=== PATIENT | male | born 1980 | race Caucasian/White ===

== ENCOUNTER 2023-05-04 19:57 | Observation (INO) | payer OTHER ==
--- OUTSIDE RECORDS SUMMARY | 2023-05-04 20:08 | XMS REPORT | Continuity of Care Document ---
:1980 Author Organization [facility] t Address [address] [place] [address] Care Team Providers Name Role Phone NONE, PREFERRED Primary Care Physician Unavailable Roseline Mike Attending Clinician Unavailable ALYSON LYNNE Attending Clinician Unavailable VIRGINIA POZO Attending Clinician Unavailable SHREYA ALBARRAN Attending Clinician Unavailable GRETCHEN KHAN Attending Clinician Unavailable Gretchen Khan DO Attending Clinician DR MADHU QUINTERO Attending Clinician Unavailable SELENA Attending Clinician Unavailable ANILA Attending Clinician Unavailable ALICE MACEDO Attending Clinician Unavailable Alan THOMPSON, Carson Villalobos Attending Clinician [phone] Raquel SEBASTIAN, Kylee Mirza Attending Clinician [phone] Rufino THOMPSON, Emily Mirza Attending Clinician KINZA RUELAS Attending Clinician Unavailable DR MARCY DAY Attending Clinician Unavailab Luca Knowles Attending Clinician LUCA BATES Attending Clinician Unavailable SHREYA ALBARRAN Admitting Clinician Unavailable DR MADHU QUINTERO Admitting Clinician Unavailable SELENA Admitting Clinician Unavailable SARAI_JIMMIE Admitting Clinician Unavailable ALICE MACEDO Admitting Clinician Unavailable KINZA RUELAS Admitting Clinician Unavailable DR MARCY DAY Admitting Clinician Unavailab le Payers Payer Name Policy Type Policy Number Effective Date Expiration Date S kenneth MEDICARE PART A [id number] 2021 AND B 00:00:00 MEDICARE C [id number] 2021 00:00:00 MEDICARE PART A [id number] 2021 \\T\\ B 00:00:00 [id number] 1959 00:00:00 [id number] 1959 00:00:00 [id number] 1959 00:00:00 [place] [address] [id number] Common S pirit Care ([facility] Problems Condition Condition Condition Status Onset Resolution Last Treating Co mments Source Name Details Category Date Date Treatment Clinician Date [id number] Elevated Problem Active Comm on hemoglobin [facility] [id number] Vitamin D Problem Active Comm on deficiency [facility] Postproced H/O Problem Active Commo n ural abdominal Spirit states surgery [facility] [id number] 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 [facility] Depression Depression Problem Active C ommon [facility] 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 stress - [facility] disorder St (PTSD[facility] Chronic Chronic Problem Active Common pain due pain after Spir it to injury traumatic - [facility] I injury [facility] [id number] Hypogonadi Problem Active Com mon sm in male [facility] Insomnia Insomnia Problem Active Commo n Spirit [facility] Hypothyroi Hypothyroi Problem Active C ommon dism dism Spirit - [facility] Anxiety Anxiety Problem Active Common Spirit [facility] [id number] Erectile Problem Active Comm on disorder Spirit due to - [facility] Incomplete Urinary Problem Active Comm on emptying retention Spiri t of bladder with - [facility] incomplete [facility] bladder [facility] No known No known Disease 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 Hospit a l Allergies, Adverse Reactions, Alerts Allergy Allergy Status Severity Reaction(s) Onset Inactive Treating Comm ents Source Name Type Date Date Clinician NO KNOWN Drug Active Univers ALLERGIE Class ity of [facility] No Known DA Active [facility] s Family History Family Member Diagnosis Comments Start Date Stop Date Source [facility] Natural mother Learning [facility] Natural [facility] Natural [facility] Arthritis [facility] Natural mother Asthma [facility] Natural mother Depression [facility] Natural mother [facility] Paternal Hy[facility] Paternal Diabetes [facility] Paternal Hypert[facility] Paternal [facility]aternal [facility] Natural sister Depression [facility] Social History Social Habit Start Date Stop Date Quantity Comments Source Gender identity Universit y [facility] Sexual orientation Univer sity [facility] Exposure to Not sure University of SARS-CoV-2 (event) [facility] History of Tobacco Common Spirit - Use [facility] Sex Assigned At Common Sp ilya - [facility] Alcohol intake 2022-01-31 2022-01-31 Current drinker Meth[facility] dist 00:00:00 00:00:00 of alcohol Hospital (finding) History of Social 2022-01-31 2022-01-[address] function 00:00:00 00:00:00 Hospital Tobacco use and 2021-11-10 2021-11-10 Smokeless [facility] exposure 00:00:00 00:00:00 tobacco non-user Hospital Smoking Status Start Date Stop Date Source Never smoker [facility] (LUF/BLANCA/SA) Tobacco smoking consumption [facility] Medical unknown Branch Medications Ordered Filled Start Stop Current Ordering Indication Dosage Frequency Signature Comments Components Source Medication Medication Date Date Medication? Clinician (SIG) Name Name NaCl 0.9% 2022- No 1000mL at 999 Uni vers (NS) bolus 03-07 mL/hr, ity of infusion 14:45: 16:00 1,000 mL, Marquez as 1,000 mL 00 :00 IV Medical Infusion, Branch ONCE, 1 dose, On Mon03/07/23 at 0945, ABHIJEET metoclopram 2022- No 10mg 10 mg, Uni vers reynaldo HCl 03-07 Slow IV ity of (REGLAN) 14:30: 14:32 Push, [place] injection 00 :00 ONCE, 1 Medical 10 mg dose, On Branch Mon03/07/23 at 0930, ABHIJEET diazePAM 2022- No 5mg 5 mg, Slow Un aura (VALIUM) 03-07 IV Push, ity of injection 5 14:00: 14:05 [place] 1 [place] 00 :[place] dose, On Medical [facility] Branch 03/07/23 at 0900, STAT ondansetron 2022- No 4mg 4 mg, Slow Univers (ZOFRAN 03-07 IV Push, ity of (PF)) 14:00: 14:05 ONCE, 1 [place] injection 4 00 :00 dose, On Medi carol mg [facility] Branch 03/07/23 at 0900, ABHIJEET ondansetron 0 Yes [id number] 4mg Take 1 Univers 4 mg 7-18 tablet by ity of disintegrat 00:00: mouth [place] ing tablet 00 every 8 Medica l (eight) Branch hours as needed for Nausea and Vomiting (N/V). meclizine Yes [id number] 25mg Take 1 U nivers 25 mg 7-18 tablet by ity of tablet 00:00: mouth 3 [place] 00 (three) Medical times Branch daily as needed for Dizziness. diclofenac 0 2021- No 75mg Q.5D Take 1 Meth pedro luis (VOLTAREN) 02-08 tablet (75 st 75 MG EC 00:00: 04:59 mg total) Hos bianca tablet 00 :00 by mouth 2 l (two) times a day for 30 days. diclofenac 2021-0 2- No 75mg Q.5D Take 1 Meth pedro luis (VOLTAREN) 02-08 tablet (75 st 75 MG EC 00:00: 04:59 mg total) Hos bianca tablet 00 :00 by mouth 2 l (two) times a day for 30 days. diclofenac 2021-0 2021- No 75mg Q.5D Take 1 Meth pedro luis (VOLTAREN) 02-08 tablet (75 st 75 MG EC 00:00: 04:59 mg total) Hos bianca tablet 00 :00 by mouth 2 l (two) times a day for 30 days. ketamine 2021-0 Yes take as Method i 100 mg 6-[address] kenn 13:13: Hospita 52 l nortriptyli 2021-0 Yes 1{capsu QD Take 1 M ethodi ne 6-13 le} capsule by ([facility]) 13:13: mouth Hospita 50 MG 52 nightly. l capsule traMADoL 2021-0 Yes 1{tbl} 1 tablet Met hodi (Ultram) 50 6-[address] mg tablet 13:13: Hospita 52 l ketamine 2021-0 Yes take as Method i 100 mg 6-[address] kenn 13:13: Hospita 52 l nortriptyli 2021-0 Yes 1{capsu QD Take 1 M ethodi ne 6-13 le} capsule by ([facility]) 13:13: mouth Hospita 50 MG 52 nightly. l capsule traMADoL 2021-0 Yes 1{tbl} 1 tablet Met hodi (Ultram) 50 6-[address] mg tablet 13:13: Hospita 52 l ketamine 2-0 Yes take as Method i 100 mg 6-[address] kenn 13:13: Hospita 52 l nortriptyli 202-0 Yes 1{capsu QD Take 1 M ethodi ne 6-13 le} capsule by (PAMELOR) 13:13: mouth Hospita 50 MG 52 nightly. l capsule traMADoL 2-0 Yes 1{tbl} 1 tablet Met hodi (Ultram) 50 6-[address] mg tablet 13:13: Hospita 52 l ketamine 2021-0 Yes take as Method i 100 mg 01-[address] kenn 13:13: Hospita 52 l nortriptyli 2021-0 Yes 1{capsu QD Take 1 M ethodi ne 01-31 le} capsule by st (PAMELOR) 13:13: mouth Hospita 50 MG 52 nightly. l capsule traMADoL 2021-0 Yes 1{tbl} 1 tablet Met hodi (Ultram) 50 01-[address] mg tablet 13:13: Hospita 52 l clonAZEPAM 2021-0 Yes (Schedule Me thodi (KlonoPIN) 01-31 IV Drug) st 1 MG tablet 13:13: TAKE 1 Hosp heidi 51 TABLET BY l MOUTH TWICE DAILY NEEDED FOR ANXIETY finasteride 2021-0 Yes 1{tbl} 1 tablet. Methodi (PROPECIA) 01-31 st 1 mg tablet 13:13: Hospit a 51 l clonAZEPAM 2-0 Yes (Schedule Me thodi (KlonoPIN) 01-31 IV Drug) st 1 MG tablet 13:13: TAKE 1 Hosp heidi 51 TABLET BY l MOUTH TWICE DAILY NEEDED FOR ANXIETY finasteride 2021-0 Yes 1{tbl} 1 tablet. Methodi (PROPECIA) 01-31 st 1 mg tablet 13:13: Hospit a 51 l clonAZEPAM 2022-0 Yes (Schedule Me thodi (KlonoPIN) 01-31 IV Drug) st 1 MG tablet 13:13: TAKE 1 Hosp heidi 51 TABLET BY l MOUTH TWICE DAILY NEEDED FOR ANXIETY finasteride 2021-0 Yes 1{tbl} 1 tablet. Methodi (PROPECIA) 01-31 st 1 mg tablet 13:13: Hospit a 51 l clonAZEPAM 2-0 Yes (Schedule Me thodi (KlonoPIN) 01-31 IV Drug) st 1 MG tablet 13:13: TAKE 1 Hosp heidi 51 TABLET BY l MOUTH TWICE DAILY NEEDED FOR ANXIETY finasteride 2021-0 Yes 1{tbl} 1 tablet. Methodi (PROPECIA) 01-31 st 1 mg tablet 13:13: Hospit a 51 l levothyroxi 2021-0 2022- No 25ug QD Take 25 Me thodi ne 3-29 03-[address] (SYNTHROID) 08:35: 00:00 mouth Hosp heidi 25 mcg 35 :00 daily. l tablet levothyroxi 2021- No 25ug QD Take 25 Me thodi ne 3-29 03-[address] (SYNTHROID) 08:35: 00:00 mouth Hosp heidi 25 mcg 35 :00 daily. l tablet levothyroxi 2021- No 25ug QD Take 25 Me thodi ne 3-29 03-[address] (SYNTHROID) 08:35: 00:00 mouth Hosp heidi 25 mcg 35 :00 daily. l tablet levothyroxi 0 Yes [id number] 25ug QD Take 1 Methodi ne 3-29 tablet (25 st (SYNTHROID) 00:00: mcg total) Hospita 25 mcg 00 by mouth l tablet daily. levothyroxi 0 Yes [id number] 25ug QD Take 1 Methodi ne 3-29 tablet (25 st (SYNTHROID) 00:00: mcg total) Hospita 25 mcg 00 by mouth l tablet daily. levothyroxi Yes [id number] 25ug QD Take 1 Methodi ne 3-29 tablet (25 st (SYNTHROID) 00:00: mcg total) Hospita 25 mcg 00 by mouth l tablet daily. levothyroxi 0 Yes [id number] 25ug QD Take 1 Methodi ne 3-29 tablet (25 st (SYNTHROID) 00:00: mcg total) Hospita 25 mcg 00 by mouth l tablet daily. testosteron 2021- No [id number] 200mg Q14D Inject 2 Methodi e cypionate 3-16 02-28 mL (200 mg s t (DEPOTESTOT 00:00: 04:59 total) Hos bianca ERONE 00 :00 into the l CYPIONATE) shoulder, 100 mg/mL thigh, or injection buttocks every 14 (fourteen) days for 90 days. testosteron 2021- No [id number] 200mg Q14D Inject 2 Methodi e cypionate 3-29 06-28 mL (200 mg s t (DEPOTESTOT 00:00: 04:59 total) Hos bianca ERONE 00 :00 into the l CYPIONATE) shoulder, 100 mg/mL thigh, or injection buttocks every 14 (fourteen) days for 90 days. testosteron 0 2- No [id number] 200mg Q14D Inject 2 Methodi e cypionate 3-29 06-28 mL (200 mg s t (DEPOTESTOT 00:00: 04:59 total) Hos bianca ERONE 00 :00 into the l CYPIONATE) shoulder, 100 mg/mL thigh, or injection buttocks every 14 (fourteen) days for 90 days. dicyclomine Yes Take 1 po M ethodi (BENTYL) 20 3-[address] mg tablet 09:24: cramping Hosp heidi 04 l QUEtiapine 0 Yes 100mg QD Take 100 Me thodi (SEROquel) 3-[address] 100 MG 09:24: mouth Hospita tablet 04 nightly. l tiZANidine Yes 4mg Q.5D Take 4 mg Me thodi (ZANAFLEX) 3-[address] 4 MG tablet 09:24: (two) Hospi ta 04 times a l day as needed for muscle spasms. LORAZepam Yes 1mg Q6H Take 1 mg Met hodi (ATIVAN) 1 3-[address] MG tablet 09:24: every 6 Hospi ta 04 (six) l hours as needed for anxiety. cyproheptad Yes 4mg QD Take 4 mg M ethodi ine 3-[address] (PERIACTIN) 09:24: nightly. Ho spita 4 mg tablet 04 l hyoscyamine 0 Yes .125mg Q8H Take 0.125 Methodi (LEVSIN) 3-[address] 0.125 mg 09:24: mouth Hospita tablet 04 every 8 l (eight) hours. UNABLE TO 2021-0 Yes Ketamine Meth pedro luis FIND 3-[address] 09:24: Kenn Hospita 04 l gabapentin 0 Yes 1200mg Q.[id number] Take 1,200 Methodi (NEURONTIN) 3-23 [id number] mg by s t 600 mg 09:24: 3D mouth 3 Hospita tablet 04 (three) l times a day. dicyclomine Yes Take 1 po M ethodi (BENTYL) 20 3-[address] mg tablet 09:24: cramping Hosp heidi 04 l QUEtiapine 2021-0 Yes 100mg QD Take 100 Me thodi (SEROquel) 3-[address] 100 MG 09:24: mouth Hospita tablet 04 nightly. l tiZANidine 2021-0 Yes 4mg Q.5D Take 4 mg Me thodi (ZANAFLEX) 3-[address] 4 MG tablet 09:24: (two) Hospi ta 04 times a l day as needed for muscle spasms. LORAZepam 2021-0 Yes 1mg Q6H Take 1 mg Met hodi (ATIVAN) 1 3-[address] MG tablet 09:24: every 6 Hospi ta 04 (six) l hours as needed for anxiety. cyproheptad 2021-0 Yes 4mg QD Take 4 mg M ethodi ine 3-[address] (PERIACTIN) 09:24: nightly. Ho spita 4 mg tablet 04 l hyoscyamine 2021-0 Yes .125mg Q8H Take 0.125 Methodi (LEVSIN) 3-[address] 0.125 mg 09:24: mouth Hospita tablet 04 every 8 l (eight) hours. UNABLE TO 2021-0 Yes Ketamine Meth pedro luis FIND 3-[address] 09:24: Kenn [facility]ospita 04 l gabapentin 2021-0 Yes 1200mg Q.[id number] Take 1,200 Methodi (NEURONTIN) 3-23 [id number] mg by s t 600 mg 09:24: 3D mouth 3 Hospita tablet 04 (three) l times a day. dicyclomine 2021-0 Yes Take 1 po M ethodi (BENTYL) 20 3-[address] mg tablet 09:24: cramping Hosp heidi 04 l QUEtiapine 2021-0 Yes 100mg QD Take 100 Me thodi (SEROquel) 3-[address] 100 MG 09:24: mouth Hospita tablet 04 nightly. l tiZANidine 2021-0 Yes 4mg Q.5D Take 4 mg Me thodi (ZANAFLEX) 3-[address] 4 MG tablet 09:24: (two) Hospi ta 04 times a l day as needed for muscle spasms. LORAZepam 2021-0 Yes 1mg Q6H Take 1 mg Met hodi (ATIVAN) 1 3-[address] MG tablet 09:24: every 6 Hospi ta 04 (six) l hours as needed for anxiety. cyproheptad 2021-0 Yes 4mg QD Take 4 mg M ethodi ine 3-[address] (PERIACTIN) 09:24: nightly. Ho spita 4 mg tablet 04 l hyoscyamine 2021-0 Yes .125mg Q8H Take 0.125 Methodi (LEVSIN) 3-[address] 0.125 mg 09:24: mouth Hospita tablet 04 every 8 l (eight) hours. UNABLE TO 2021-0 Yes Ketamine Meth pedro luis FIND 3-[address] 09:24: Kenn [facility]ospita 04 l gabapentin 2021-0 Yes 1200mg Q.[id number] Take 1,200 Methodi (NEURONTIN) 3-23 [id number] mg by s t 600 mg 09:24: 3D mouth 3 Hospita tablet 04 (three) l times a day. dicyclomine 2021-0 Yes Take 1 po M ethodi (BENTYL) 20 3-[address] mg tablet 09:24: cramping Hosp heidi 04 l QUEtiapine 2021-0 Yes 100mg QD Take 100 Me thodi (SEROquel) 3-[address] 100 MG 09:24: mouth Hospita tablet 04 nightly. l tiZANidine 2021-0 Yes 4mg Q.5D Take 4 mg Me thodi (ZANAFLEX) 3-[address] 4 MG tablet 09:24: (two) Hospi ta 04 times a l day as needed for muscle spasms. LORAZepam 2021-0 Yes 1mg Q6H Take 1 mg Met hodi (ATIVAN) 1 3-[address] MG tablet 09:24: every 6 Hospi ta 04 (six) l hours as needed for anxiety. cyproheptad 2021-0 Yes 4mg QD Take 4 mg M ethodi ine 3-[address] (PERIACTIN) 09:24: nightly. Ho spita 4 mg tablet 04 l hyoscyamine 2021-0 Yes .125mg Q8H Take 0.125 Methodi (LEVSIN) 3-[address] 0.125 mg 09:24: mouth Hospita tablet 04 every 8 l (eight) hours. UNABLE TO 2021-0 Yes Ketamine Meth pedro luis FIND 3-[address] 09:24: Kenn [facility]ospita 04 l gabapentin 2021-0 Yes 1200mg Q.[id number] Take 1,200 Methodi (NEURONTIN) 3-23 [id number] mg by s t 600 mg 09:24: 3D mouth 3 Hospita tablet 04 (three) l times a day. pantoprazol 2021-0 Yes [id number] 40mg QD Take 1 Methodi e 3-23 tablet (40 st (PROTONIX) 00:00: mg total) Ho spita 40 MG EC 00 by mouth l tablet daily. Take 1 po qd pantoprazol 2021-0 Yes [id number] 40mg QD Take 1 Methodi e 3-23 tablet (40 st (PROTONIX) 00:00: mg total) Ho spita 40 MG EC 00 by mouth l tablet daily. Take 1 po qd pantoprazol 2021-0 Yes [id number] 40mg QD Take 1 Methodi e 3-23 tablet (40 st (PROTONIX) 00:00: mg total) Ho spita 40 MG EC 00 by mouth l tablet daily. Take 1 po qd pantoprazol 2-0 Yes [id number] 40mg QD Take 1 Methodi e 3-23 tablet (40 st (PROTONIX) 00:00: mg total) Ho spita 40 MG EC 00 by mouth l tablet daily. Take 1 po qd busPIRone 2021-0 Yes 10mg Q.5D Take 10 mg Me thodi (BUSPAR) 10 3-[address] MG tablet 00:00: (two) Hospita 00 times a l day. mirtazapine 2021-0 Yes TAKE 1/2 Me thodi (REMERON) 3-[address] 15 MG 00:00: MOUTH AT Hospita tablet 00 BEDTIME l FOR INSOMNIA. busPIRone 2-0 Yes 10mg Q.5D Take 10 mg Me thodi (BUSPAR) 10 3-[address] MG tablet 00:00: (two) Hospita 00 times a l day. mirtazapine 2021-0 Yes TAKE 1/2 Me thodi (REMERON) 3-[address] 15 MG 00:00: MOUTH AT Hospita tablet 00 BEDTIME l FOR INSOMNIA. busPIRone 0 Yes 10mg Q.5D Take 10 mg Me thodi (BUSPAR) 10 3-[address] MG tablet 00:00: (two) Hospita 00 times a l day. mirtazapine 0 Yes TAKE 1/2 Me thodi (REMERON) 3-[address] 15 MG 00:00: MOUTH AT Hospita tablet 00 BEDTIME l FOR INSOMNIA. busPIRone 0 Yes 10mg Q.5D Take 10 mg Me thodi (BUSPAR) 10 3-[address] MG tablet 00:00: (two) Hospita 00 times a l day. mirtazapine 0 Yes TAKE 1/2 Me thodi (REMERON) 3-[address] 15 MG 00:00: MOUTH AT Hospita tablet 00 BEDTIME l FOR INSOMNIA. FLUoxetine Yes Take 1 po Me thodi (PROzac) 20 2-[address] MG tablet 00:00: Hospita 00 l FLUoxetine 0 Yes Take 1 po Me thodi (PROzac) 20 2-[address] MG tablet 00:00: Hospita 00 l FLUoxetine 0 Yes Take 1 po Me thodi (PROzac) 20 2-[address] MG tablet 00:00: Hospita 00 l FLUoxetine 0 Yes Take 1 po Me thodi (PROzac) 20 2-[address] MG tablet 00:00: Hospita 00 l traMADol-ac 2020-08 Yes Take 1 po M ethodi etaminophen 0-[address] (ULTRACET) 00:00: Hospita 37.5-325 mg 00 l per tablet sildenafiL 2020-08 Yes Methodi (VIAGRA) 0-22 st 100 MG 00:00: Hospita tablet 00 l traMADol-ac 2020-08 Yes Take 1 po M ethodi etaminophen 0-[address] (ULTRACET) 00:00: Hospita 37.5-325 mg 00 l per tablet sildenafiL 2020-08 Yes Methodi (VIAGRA) 0-22 st 100 MG 00:00: Hospita tablet 00 l traMADol-ac 2020-08 Yes Take 1 po M ethodi etaminophen 0-[address] (ULTRACET) 00:00: Hospita 37.5-325 mg 00 l per tablet sildenafiL 2020-08 Yes Methodi (VIAGRA) 0-22 st 100 MG 00:00: Hospita tablet 00 l traMADol-ac 2020-08 Yes Take 1 po M ethodi etaminophen 0-[address] (ULTRACET) 00:00: Hospita 37.5-325 mg 00 l per tablet sildenafiL 2020-08 Yes Methodi (VIAGRA) 0-22 st 100 MG 00:00: Hospita tablet 00 l Testosteron Testosteron No QD e 40.5 e 40.5 9-08 MG/2.5GM MG/2.5GM 00:00: (1.62%) (1.62%) 00 Testosteron Testosteron No QD e 40.5 e 40.5 9-08 MG/2.5GM MG/2.5GM 00:00: (1.62%) (1.62%) 00 Testosteron Testosteron No QD Testostero e 40.5 e 40.5 9-08 ne 40.5 MG/2.5GM MG/2.5GM 00:00: MG/2.5GM (1.62%) (1.62%) 00 (1.62%) Testosteron Testosteron No QD Testostero e 40.5 e 40.5 9-08 ne 40.5 MG/2.5GM MG/2.5GM 00:00: MG/2.5GM (1.62%) (1.62%) 00 (1.62%) Testosteron Testosteron No QD Testostero e 40.5 e 40.5 9-08 ne 40.5 MG/2.5GM MG/2.5GM 00:00: MG/2.5GM (1.62%) (1.62%) 00 (1.62%) Testosteron Testosteron No QD Testostero e 40.5 e 40.5 9-08 ne 40.5 MG/2.5GM MG/2.5GM 00:00: MG/2.5GM (1.62%) (1.62%) 00 (1.62%) methocarbam 2020-0 Yes Take 1 po M ethodi oL 8-[address] (ROBAXIN) 00:00: Hospita 500 MG 00 l tablet methocarbam 2020-0 Yes Take 1 po M ethodi oL 8-[address] (ROBAXIN) 00:00: Hospita 500 MG 00 l tablet methocarbam 2020-0 Yes Take 1 po M ethodi oL 8-[address] (ROBAXIN) 00:00: Hospita 500 MG 00 l tablet methocarbam 2020-0 Yes Take 1 po M ethodi oL 8-[address] (ROBAXIN) 00:00: Hospita 500 MG 00 l tablet LORAZepam 0 Yes Take 1 po Met hodi (ATIVAN) 1 2-[address] MG tablet 00:00: Hospita 00 l LORAZepam 2020-0 Yes Take 1 po Met hodi (ATIVAN) 1 2-[address] MG tablet 00:00: Hospita 00 l LORAZepam 2020-0 Yes Take 1 po Met hodi (ATIVAN) 1 2-[address] MG tablet 00:00: Hospita 00 l LORAZepam 2020-0 Yes Take 1 po Met hodi (ATIVAN) 1 2-[address] MG tablet 00:00: Hospita 00 l ondansetron 2020- No 4mg 4 mg, Slow Univers (ZOFRAN 09-13 IV Push, ity of (PF)) 22:30: 22:07 ONCE, 1 [place] injection 4 00 :00 dose, [place] Med ical mg 09/13/20 at Branch 1630, ABHIJEET morpHINE 2020- No 4mg 4 mg, Slow Un aura injection 4 09-13 IV Push, ity of mg 22:30: 22:08 ONCE, 1 [place] 00 :00 dose, [facility] 09/13/20 at Branch 1630, STAT NaCl 0.9% 2020- No 1000mL at 999 Uni vers (NS) bolus 09-13-24 mL/hr, ity of infusion 21:30: 23:06 1,000 mL, Marquez as 1,000 mL 00 :00 IV Medical Infusion, [place] ONCE, 1 dose, 09/13/20 at 1530, ABHIEJET acetaminoph Yes [id number] 1{tbl} Take 1 Un aura en-codeine 1-24 tablet by ity of (TYLENOL-CO 00:00: mouth [place] DEINE #3) 00 every 4 Medical 300-30 mg (four) Branch tablet hours as needed for Pain (scale 7-10). Indication s: acute pain ondansetron Yes [id number] 4mg Take 1 Univers (ZOFRAN 1-24 tablet by ity of ODT) 4 mg 00:00: mouth [place] disintegrat 00 every 8 Medic al ing tablet (eight) Branch hours as needed for Nausea and Vomiting (N/V). acetaminoph 2022- No [id number] 1{tbl} Take 1 U nivers en-codeine 1-24 07-18 tablet by ity of (TYLENOL-CO 00:00: 00:00 mouth [place] DEINE #3[place] 00 :00 every 4 Medical 300-30 mg (four) Branch tablet hours as needed for Pain (scale 7-10). Indication s: acute pain ondansetron 2022- No [id number] 4mg Take 1 Univers (ZOFRAN 1-24 07-18 tablet by ity of ODT) 4 mg 00:00: 00:00 mouth [place] disintegrat 00 :00 every 8 Medic al ing tablet (eight) Branch hours as needed for Nausea and Vomiting (N/V). cyclobenzap Yes Take 1 po M ethodi rine 7-[address] (FLEXERIL) 00:00: cramps Hospi ta 10 mg 00 l tablet cyclobenzap Yes Take 1 po M ethodi rine 7-[address] (FLEXERIL) 00:00: cramps Hospi ta 10 mg 00 l tablet cyclobenzap Yes Take 1 po M ethodi rine 7-[address] (FLEXERIL) 00:00: cramps Hospi ta 10 mg 00 l tablet cyclobenzap Yes Take 1 po M ethodi rine 7-[address] (FLEXERIL) 00:00: cramps Hospi ta 10 mg 00 l tablet prazosin Yes Take 1 po Meth pedro luis (MINIPRESS) 3-[address] 2 MG 00:00: Hospita capsule 00 l prazosin Yes Take 1 po Meth pedro luis (MINIPRESS) 3-[address] 2 MG 00:00: Hospita capsule 00 l prazosin Yes Take 1 po Meth pedro luis (MINIPRESS) 3-[address] 2 MG 00:00: Hospita capsule 00 l prazosin Yes Take 1 po Meth pedro luis (MINIPRESS) 3-[address] 2 MG 00:00: Hospita capsule 00 l pantoprazol 2021- No Take 1 po Methodi e 09-[address] (PROTONIX) 00:00: 00:00 Hospit a 40 MG EC 00 :00 l tablet pantoprazol 2021- No Take 1 po Methodi e 09-[address] (PROTONIX) 00:00: 00:00 Hospit a 40 MG EC 00 :00 l tablet pantoprazol 2021- No Take 1 po Methodi e 09-[address] (PROTONIX) 00:00: 00:00 Hospit a 40 MG EC 00 :00 l tablet acetaminoph acetaminoph No acetaminop Hillary en 120 en 120 hen 120 [facility] mg-codeine mg-codeine mg-codeine dic 12 mg/5 mL 12 mg/5 mL 12 mg/5 mL Sports (5 mL) oral (5 mL) oral (5 mL) Medicin solution solution oral e solution cyclobenzap cyclobenzap Yes 10mg 3xD C HI [facility] rine 10 mg rine 10 mg Kishore es tablet tablet Memoria l (LUF/LI V/SA) acetaminoph acetaminoph No acetaminop Hillary en 300 en 300 hen 300 [facility] mg-codeine mg-codeine mg-codeine dic 30 mg 30 mg 30 mg Sports tablet TAKE tablet TAKE tablet Medicin 1 TO 2 1 TO 2 TAKE 1 TO e TABLETS BY TABLETS BY 2 TABLETS MOUTH THREE MOUTH THREE BY MOUTH TIMES A DAY TIMES A DAY THREE NEEDED NEEDED TIMES A FOR 3 DAYS FOR 3 DAYS DAY NEEDED FOR 3 DAYS cyclobenzap cyclobenzap Yes 10mg 3xD [facility] 10 mg rine 10 mg Kishore es tablet tablet Memoria l (LUF/LI V/SA) ondansetron ondansetron Yes 4mg 3xD [facility] mg [facility] ing tablet ing tablet l (LUF/LI V/SA) Aleve Aleve No Aleve [facility] cyclobenzap cyclobenzap Yes 10mg 3xD orally [address] [facility] 10 mg rine 10 mg times per [facility] tablet tablet day as Memoria needed. l (for (LUF/LI muscle V/SA) spasms) cyclobenzap cyclobenzap Yes 10mg 3xD orally [facility] 10 mg [facility]ine 10 mg every 8 [facility] tablet tablet hours as Memoria needed. l (LUF/LI V/SA) amitriptyli amitriptyli No amitriptyl Hillary ne 100 mg ne 100 mg ine 100 mg [facility] tablet TAKE tablet TAKE tablet dic 1 TABLET BY 1 TABLET BY TAKE 1 Sports MOUTH AT MOUTH AT TABLET BY De dicin BEDTIME BEDTIME MOUTH AT e BEDTIME ondansetron ondansetron Yes 4mg 3xD orally [address] [facility] [address] 4 mg 4 mg times per [facility]integrat day as [facility]oria ing tablet ing tablet needed. l (as needed (LUF/LI for nausea V/SA) and vomiting) cyclobenzap cyclobenzap Yes 10mg 3xD [facility] 10 mg rine 10 mg Kishore es tablet tablet Memoria l (LUF/LI V/SA) cyclobenzap cyclobenzap Yes 10mg 3xD orally [address] [facility] 10 mg rine 10 mg times per [facility] tablet tablet day as Memoria needed. l (for (LUF/LI muscle V/SA) spasms) cyclobenzap cyclobenzap Yes 10mg 3xD [facility] 10 mg rine 10 mg Kishore es tablet tablet Memoria l (LUF/LI V/SA) amitriptyli amitriptyli No amitriptyl Hillary ne 50 mg ne 50 mg ine 50 mg Or thope tablet TAKE tablet TAKE tablet dic 1 TABLET BY 1 TABLET BY TAKE 1 Sports MOUTH AT MOUTH AT TABLET BY De dicin BEDTIME BEDTIME MOUTH AT e BEDTIME cyclobenzap cyclobenzap Yes 10mg 3xD [facility] 10 mg rine 10 mg Kishore es tablet tablet Memoria l (LUF/LI V/SA) ondansetron ondansetron Yes 4mg 3xD [facility] 4 mg 4 mg [facility] emoria ing tablet ing tablet l (LUF/LI V/SA) cyclobenzap cyclobenzap Yes 10mg 3xD orally [facility] 10 mg rine 10 mg every 8 [facility] tablet tablet hours as Memoria needed. l (LUF/LI V/SA) cyclobenzap cyclobenzap Yes 10mg 3xD orally [address] [facility] [address] [facility] 10 mg rine 10 mg times per [facility] tablet tablet day as Memoria needed. l (for (LUF/LI muscle V/SA) spasms) amoxicillin amoxicillin No amoxicilli Hillary [phone] [id number] [facility] mg-potassiu mg-potassiu mg-potassi dic m m Sports clavulanate clavulanate clavulanat Medicin 125 mg 125 mg e 125 mg e tablet TAKE tablet TAKE tablet 1 TABLET BY 1 TABLET BY TAKE 1 MOUTH EVERY MOUTH EVERY TABLET BY TWELVE TWELVE MOUTH HOURS FOR 7 HOURS FOR 7 EVERY DAYS DAYS TWELVE HOURS FOR 7 DAYS ondansetron ondansetron Yes 4mg 3xD orally [address] [facility] 4 mg 4 mg times per [facility]integrat day as [facility]oria ing tablet ing tablet needed. l (as needed (LUF/LI for nausea V/SA) and vomiting) cyclobenzap cyclobenzap Yes 10mg 3xD [facility] 10 mg rine 10 mg Kishore es tablet tablet Memoria l (LUF/LI V/SA) cyclobenzap cyclobenzap Yes 10mg 3xD [facility] 10 mg rine 10 mg Kishore es tablet tablet Memoria l (LUF/LI V/SA) ciprofloxac ciprofloxac No ciprofloxa Hillary in 500 mg in 500 mg jaspal 500 mg [facility] tablet TAKE tablet TAKE tablet dic 1 TABLET BY 1 TABLET BY TAKE 1 Sports MOUTH EVERY MOUTH EVERY TABLET BY Medicin 12 HOURS 12 HOURS MOUTH e FOR 10 DAYS FOR 10 DAYS EVERY 12 HOURS FOR 10 DAYS ondansetron ondansetron Yes 4mg 3xD [facility] 4 mg 4 mg [facility] em[facility] ing tablet ing tablet l (LUF/LI V/SA) cyclobenzap cyclobenzap Yes 10mg 3xD orally [facility] 10 mg rine 10 mg every 8 [facility] tablet tablet hours as Memoria needed. l (LUF/LI V/SA) cyclobenzap cyclobenzap Yes 10mg 3xD orally [address] [facility] [address] [facility] 10 mg rine 10 mg times per [facility] tablet tablet day as Memoria needed. l (for (LUF/LI muscle V/SA) spasms) ondansetron ondansetron Yes 4mg 3xD orally [address] [facility] 4 mg 4 mg times per [facility] disintegrat day as Memoria ing tablet ing tablet needed. l (as needed (LUF/LI for nausea V/SA) and vomiting) cyclobenzap cyclobenzap Yes 10mg 3xD [facility] 10 mg rine 10 mg Kishore es tablet tablet Memoria l (LUF/LI V/SA) cyclobenzap cyclobenzap Yes 10mg 3xD [facility] 10 mg rine 10 mg Kishore es tablet tablet Memoria l (LUF/LI V/SA) gabapentin gabapentin No gabapentin Hillary 300 mg 300 mg 300 mg [facility] capsule capsule capsule dic TAKE 1 TAKE 1 TAKE 1 Sports CAPSULE BY CAPSULE BY CAPSULE BY Medicin MOUTH EVERY MOUTH EVERY MOUTH e 8 HOURS 8 HOURS EVERY 8 HOURS ondansetron ondansetron Yes 4mg 3xD [facility] 4 mg 4 mg [facility] emoria ing tablet ing tablet l (LUF/LI V/SA) cyclobenzap cyclobenzap Yes 10mg 3xD orally [address] [facility] 10 mg rine 10 mg times per [facility] tablet tablet day as Memoria needed. l (for (LUF/LI muscle V/SA) spasms) cyclobenzap cyclobenzap Yes 10mg 3xD orally [facility] 10 mg rine 10 mg every 8 [facility] tablet tablet hours as Memoria needed. l (LUF/LI V/SA) ondansetron ondansetron Yes 4mg 3xD orally [address] [facility] [address] 4 mg 4 mg times per [facility] disintegrat day as Memoria ing tablet ing tablet needed. l (as needed (LUF/LI for nausea V/SA) and vomiting) ibuprofen ibuprofen No ibuprofen [facility] levothyroxi levothyroxi No levothyrox [facility] ne ne ine [facility] Prazosin Prazosin No HCl 2 MG HCl 2 MG Sildenafil Sildenafil No 1{table QD Citrate 100 Citrate 100 t_as_ne MG MG eded} HYDROcodone HYDROcodone No 1{table QID -Acetaminop -Acetaminop t_as_ne hen 5-325 hen 5-325 eded} MG MG Gabapentin Gabapentin No TID 600 MG 600 MG levothyroxi levothyroxi No levothyrox Hillary ne 25 mcg ne 25 mcg ine 25 mcg [facility] tablet TAKE tablet TAKE tablet dic 1 TABLET BY 1 TABLET BY TAKE 1 Sports MOUTH EVERY MOUTH EVERY TABLET BY Medicin MORNING ON MORNING ON MOUTH e AN EMPTY AN EMPTY EVERY STOMACH STOMACH MORNING ON AN EMPTY STOMACH clonazePAM clonazePAM No 1 MG 1 MG Methocarbam Methocarbam No ol 500 MG ol 500 MG Lidocaine Lidocaine No Lidocaine Hillary Viscous 2 % Viscous 2 % Viscous 2 [facility] mucosal mucosal % mucosal dic solution solution solution Spo rts TAKE 10ML TAKE 10ML TAKE 10ML Medicin BY MOUTH BY MOUTH BY MOUTH e EVERY 6 EVERY 6 EVERY 6 HOURS HOURS HOURS Finasteride Finasteride No 1{table QD 1 MG 1 MG t} Cyproheptad Cyproheptad No ine HCl 4 ine HCl 4 MG MG Nortriptyli Nortriptyli No ne HCl 50 ne HCl 50 MG MG Pantoprazol Pantoprazol No 1{table QD e Sodium 40 e Sodium 40 t} MG MG Levothyroxi Levothyroxi No QD ne Sodium ne Sodium 25 MCG 25 MCG traMADol traMADol No 1{table QD HCl 50 MG HCl 50 MG t_as_ne eded} lorazepam 1 lorazepam 1 No lorazepam Hillary mg tablet mg tablet 1 mg Orth[facility] pe TAKE 1 TAKE 1 tablet dic TABLET BY TABLET BY TAKE 1 Spo rts MOUTH TWICE MOUTH TWICE TABLET BY Medicin DAILY DAILY MOUTH e NEEDED NEEDED TWICE DAILY NEEDED SEROquel SEROquel No 1{table QD 100 MG 100 MG t_at_be dtime} Ketamine Ketamine No HCl 100 MG HCl 100 MG Prazosin Prazosin No HCl 2 MG HCl 2 MG Sildenafil Sildenafil No 1{table QD Citrate 100 Citrate 100 t_as_ne MG MG eded} HYDROcodone HYDROcodone No 1{table QID -Acetaminop -Acetaminop t_as_ne hen 5-325 hen 5-325 eded} MG MG Gabapentin Gabapentin No TID 600 MG 600 MG clonazePAM clonazePAM No 1 MG 1 MG Gabapentin Gabapentin No TID Gabapentin 600 MG 600 MG 600 MG melatonin melatonin No melatonin [facility] Cyproheptad Cyproheptad No Cyprohepta ine HCl 4 ine HCl 4 dine HCl 4 MG MG MG SEROquel SEROquel No 1{table QD SEROquel 100 MG 100 MG t_at_be 100 MG dtime} clonazePAM clonazePAM No clonazePAM 1 MG 1 MG 1 MG Ketamine Ketamine No Ketamine HCl 100 MG HCl 100 MG HCl 100 MG Amitriptyli Amitriptyli No 1{table QD Amitriptyl ne HCl 100 ne HCl 100 t_at_be ine HCl MG MG dtime} 100 MG traMADol traMADol No 1{table QD traMADol HCl 50 MG HCl 50 MG t_as_ne HCl 50 MG eded} Sildenafil Sildenafil No 1{table QD Sildenafil Citrate 100 Citrate 100 t_as_ne Citrate MG MG eded} 100 MG Methocarbam Methocarbam No Methocarba ol 500 MG ol 500 MG mol 500 MG Levothyroxi Levothyroxi No QD Levothyrox ne Sodium ne Sodium ine Sodium 25 MCG 25 MCG 25 MCG methocarbam methocarbam No methocarba Hillary ol ol mol [facility] Prazosin Prazosin No Prazosin HCl 2 MG HCl 2 MG HCl 2 MG Finasteride Finasteride No 1{table QD Finasterid 1 MG 1 MG t} e 1 MG Pantoprazol Pantoprazol No 1{table QD Pantoprazo e Sodium 40 e Sodium 40 t} le Sodium MG MG 40 MG HYDROcodone HYDROcodone No 1{table QID HYDROcodon -Acetaminop -Acetaminop t_as_ne e-Acetamin hen 5-325 hen 5-325 eded} ophen MG MG 5-325 MG Nortriptyli Nortriptyli No Nortriptyl ne HCl 50 ne HCl 50 ine HCl 50 MG MG MG Gabapentin Gabapentin No TID Gabapentin 600 MG 600 MG 600 MG Nortriptyli Nortriptyli No Nortriptyl ne HCl 50 ne HCl 50 ine HCl 50 MG MG MG Cyproheptad Cyproheptad No Cyprohepta ine HCl 4 ine HCl 4 dine HCl 4 MG MG MG traMADol traMADol No 1{table QD traMADol HCl 50 MG HCl 50 MG t_as_ne HCl 50 MG eded} Pantoprazol Pantoprazol No 1{table QD Pantoprazo e Sodium 40 e Sodium 40 t} le Sodium MG MG 40 MG Prazosin Prazosin No Prazosin HCl 2 MG HCl 2 MG HCl 2 MG Ketamine Ketamine No Ketamine HCl 100 MG HCl 100 MG HCl 100 MG clonazePAM clonazePAM No clonazePAM 1 MG 1 MG 1 MG methocarbam methocarbam No methocarba Hillary ol 500 mg ol 500 mg mol 500 mg [facility] tablet TAKE tablet TAKE tablet dic 1 TABLET BY 1 TABLET BY TAKE 1 Sports MOUTH AT MOUTH AT TABLET BY Me dicin BEDTIME BEDTIME MOUTH AT e NEEDED NEEDED BEDTIME NEEDED Amitriptyli Amitriptyli No 1{table QD Amitriptyl ne HCl 100 ne HCl 100 t_at_be ine HCl MG MG dtime} 100 MG Methocarbam Methocarbam No Methocarba ol 500 MG ol 500 MG mol 500 MG Finasteride Finasteride No 1{table QD Finasterid 1 MG 1 MG t} e 1 MG Levothyroxi Levothyroxi No QD Levothyrox ne Sodium ne Sodium ine Sodium 25 MCG 25 MCG 25 MCG SEROquel SEROquel No 1{table QD SEROquel 100 MG 100 MG t_at_be 100 MG dtime} HYDROcodone HYDROcodone No 1{table QID HYDROcodon -Acetaminop -Acetaminop t_as_ne e-Acetamin hen 5-325 hen 5-325 eded} ophen MG MG 5-325 MG Sildenafil Sildenafil No 1{table QD Sildenafil Citrate 100 Citrate 100 t_as_ne Citrate MG MG eded} 100 MG Sildenafil Sildenafil No 1{table QD Sildenafil Citrate 100 Citrate 100 t_as_ne Citrate MG MG eded} 100 MG Methocarbam Methocarbam No Methocarba ol 500 MG ol 500 MG mol 500 MG Finasteride Finasteride No 1{table QD Finasterid 1 MG 1 MG t} e 1 MG Gabapentin Gabapentin No Gabapentin 600 MG 600 MG 600 MG HYDROcodone HYDROcodone No 1{table QID HYDROcodon -Acetaminop -Acetaminop t_as_ne e-Acetamin hen 5-325 hen 5-325 eded} ophen MG MG 5-325 MG Zolpidem Zolpidem No Zolpidem Tartrate 10 Tartrate 10 Tartrate MG MG 10 MG Cyproheptad Cyproheptad No Cyprohepta ine HCl 4 ine HCl 4 dine HCl 4 MG MG MG clonazePAM clonazePAM No clonazePAM 1 MG 1 MG 1 MG Prazosin Prazosin No Prazosin HCl 2 MG HCl 2 MG HCl 2 MG Pantoprazol Pantoprazol No 1{table QD Pantoprazo e Sodium 40 e Sodium 40 t} le Sodium MG MG 40 MG Nortriptyli Nortriptyli No Nortriptyl ne HCl 50 ne HCl 50 ine HCl 50 MG MG MG Levothyroxi Levothyroxi No QD Levothyrox ne Sodium ne Sodium ine Sodium 25 MCG 25 MCG 25 MCG Nortriptyli Nortriptyli No Nortriptyl ne HCl 50 ne HCl 50 ine HCl 50 MG MG MG Gabapentin Gabapentin No TID Gabapentin 600 MG 600 MG 600 MG methylpheni methylpheni No methylphen Hillary date 5 mg date 5 mg idate 5 mg [facility] tablet TAKE tablet TAKE tablet dic 1 TABLET BY 1 TABLET BY TAKE 1 Sports MOUTH TWICE MOUTH TWICE TABLET BY Medicin DAILY DAILY MOUTH e TWICE DAILY clonazePAM clonazePAM No clonazePAM 1 MG 1 MG 1 MG Methocarbam Methocarbam No Methocarba ol 500 MG ol 500 MG mol 500 MG Ketamine Ketamine No Ketamine HCl 100 MG HCl 100 MG HCl 100 MG Pantoprazol Pantoprazol No 1{table QD Pantoprazo e Sodium 40 e Sodium 40 t} le Sodium MG MG 40 MG Cyproheptad Cyproheptad No Cyprohepta ine HCl 4 ine HCl 4 dine HCl 4 MG MG MG Finasteride Finasteride No 1{table QD Finasterid 1 MG 1 MG t} e 1 MG Sildenafil Sildenafil No 1{table QD Sildenafil Citrate 100 Citrate 100 t_as_ne Citrate MG MG eded} 100 MG Prazosin Prazosin No Prazosin HCl 2 MG HCl 2 MG HCl 2 MG Levothyroxi Levothyroxi No QD Levothyrox ne Sodium ne Sodium ine Sodium 25 MCG 25 MCG 25 MCG traMADol traMADol No 1{table QD traMADol HCl 50 MG HCl 50 MG t_as_ne HCl 50 MG eded} HYDROcodone HYDROcodone No 1{table QID HYDROcodon -Acetaminop -Acetaminop t_as_ne e-Acetamin hen 5-325 hen 5-325 eded} ophen MG MG 5-325 MG SEROquel SEROquel No 1{table QD SEROquel 100 MG 100 MG t_at_be 100 MG dtime} Methocarbam Methocarbam No ol 500 MG ol 500 MG Finasteride Finasteride No 1{table QD 1 MG 1 MG t} Cyproheptad Cyproheptad No ine HCl 4 ine HCl 4 MG MG Nortriptyli Nortriptyli No ne HCl 50 ne HCl 50 MG MG methylpredn methylpredn No methylpred Hillary isolone 4 isolone 4 nisolone 4 [facility] mg tablets mg tablets mg tablets dic in a dose in a dose in a dose Sports pack 1 UNIT pack 1 UNIT pack 1 Medicin BY MOUTH BY MOUTH UNIT BY e DIRECTED DIRECTED MOUTH TAKE TAKE DIRECTED DIRECTED DIRECTED TAKE DIRECTED Pantoprazol Pantoprazol No 1{table QD e Sodium 40 e Sodium 40 t} MG MG Levothyroxi Levothyroxi No QD ne Sodium ne Sodium 25 MCG 25 MCG traMADol traMADol No 1{table QD HCl 50 MG HCl 50 MG t_as_ne eded} SEROquel SEROquel No 1{table QD 100 MG 100 MG t_at_be dtime} Ketamine Ketamine No HCl 100 MG HCl 100 MG mirtazapine mirtazapine No mirtazapin Hillary 15 mg 15 mg e 15 mg [facility] tablet TAKE tablet TAKE tablet dic 1/2 TABLET 1/2 TABLET TAKE 1/2 Sports BY MOUTH AT BY MOUTH AT TABLET BY Medicin BEDTIME FOR BEDTIME FOR MOUTH AT e INSOMNIA INSOMNIA BEDTIME FOR INSOMNIA pantoprazol pantoprazol No pantoprazo Hillary e 40 mg e 40 mg le 40 mg Orth[facility] pe tablet,yovana tablet,yovana tablet,del dic yed release yed release ayed S ports TAKE 1 TAKE 1 release Medicin TABLET BY TABLET BY TAKE 1 e MOUTH EVERY MOUTH EVERY TABLET BY DAY DAY MOUTH EVERY DAY quetiapine quetiapine No quetiapine Hillary 100 mg 100 mg 100 mg [facility] tablet TAKE tablet TAKE tablet dic 1 TABLET BY 1 TABLET BY TAKE 1 Sports MOUTH AT MOUTH AT TABLET BY Me dicin BEDTIME BEDTIME MOUTH AT e BEDTIME quetiapine quetiapine No quetiapine Hillary 200 mg 200 mg 200 mg [facility] tablet TAKE tablet TAKE tablet dic 1 TABLET BY 1 TABLET BY TAKE 1 Sports MOUTH AT MOUTH AT TABLET BY Me dicin BEDTIME BEDTIME MOUTH AT e BEDTIME sildenafil sildenafil No sildenafil Hillary 100 mg 100 mg 100 mg [facility] tablet TAKE tablet TAKE tablet dic 1 TABLET BY 1 TABLET BY TAKE 1 Sports MOUTH DAILY MOUTH DAILY TABLET BY Medicin NEEDED NEEDED MOUTH e DAILY NEEDED tadalafil tadalafil No tadalafil Hillary 10 mg 10 mg 10 mg [facility] tablet tablet tablet dic Sports Medicin e testosteron testosteron No testostero Hillary e cypionate e cypionate ne O rthope 100 mg/mL 100 mg/mL cypionate dic intramuscul intramuscul 100 mg/mL Sports ar oil ar oil intramuscu Medic in INJECT 2 ML INJECT 2 ML lar oil e INTRAMUSCUL INTRAMUSCUL INJECT 2 CLARK EVERY CLARK EVERY ML 14 DAYS 14 DAYS INTRAMUSCU LARLY EVERY 14 DAYS tizanidine tizanidine No tizanidine Hillary 4 mg 4 mg 4 mg [facility] capsule capsule capsule dic Sports Medicin e tizanidine tizanidine No tizanidine Hillary 4 mg tablet 4 mg tablet 4 mg O rthope TAKE 1 TAKE 1 tablet dic TABLET BY TABLET BY TAKE 1 Spo rts MOUTH EVERY MOUTH EVERY TABLET BY Medicin 8 HOURS 8 HOURS MOUTH e NEEDED NEEDED EVERY 8 HOURS NEEDED Vital Signs Vital Name Observation Time Observation Value Comments Source Body temperature 2023-03-07 16:30:00 36 Yoanna [facility] Systolic blood 2023-03-07 16:00:00 100 mm[facility]Hg[facility] 2023-03-07 16:00:00 75 mm[Hg] [facility] Heart rate 2023-03-07 16:00:00 60 /[facility] Respiratory rate 2023-03-07 16:00:00 13 /min [facility] Oxygen saturation in 2023-03-07 16:00:00 97 /min [facility] blood by [facility] Pulse oximetry Branch Body height 2023-03-07 13:55:00 177.8 cm [facility] Body weight 2023-03-07 13:55:00 102.059 kg [facility] BMI 2023-03-07 13:55:00 32.28 kg/m2 [facility] BP Diastolic 2022-12-29 00:00:00 74 mm[Hg] [facility] Systolic 2022-12-29 00:00:00 153 mm[Hg] [facility] Height 2022-09-11 08:06:00 177.8 CM Weight 2022-09-11 08:06:00 101 KG height 2022-04-26 10:00:00 71 [in_i] [facility] weight 2022-04-26 10:00:00 220 [lb_av] [facility] temperature 2022-04-26 10:00:00 97.2 [degF] [facility] bmi 2022-04-26 10:00:00 30.68 kg/m2 [facility] respiratory rate 2022-04-26 10:00:00 16 /min [facility] height 2022-04-20 11:40:00 71 [in_i] [facility] weight 2022-04-20 11:40:00 220.8 [lb_av] [facility] temperature 2022-04-20 11:40:00 97.8 [degF] [facility] bmi 2022-04-20 11:40:00 30.79 kg/m2 [facility] oximetry 2022-04-20 11:40:00 98 % [facility] respiratory rate 2022-04-20 11:40:00 16 /min [facility] blood pressure 2022-04-20 11:40:00 119 mm[Hg] [facility] systolic [facility] blood pressure 2022-04-20 11:40:00 67 mm[Hg] Common [facility] - diastolic [facility] height 2021-09-08 08:00:00 71 [in_i] Common [facility] weight 2021-09-08 08:00:00 215 [lb_av] [facility] temperature 2021-09-08 08:00:00 97.4 [degF] [facility] bmi 2021-09-08 08:00:00 29.98 kg/m2 [facility] respiratory rate 2021-09-08 08:00:00 16 /min [facility] on [facility] height 2021-09-08 08:20:00 71 [in_i] [facility] weight 2021-09-08 08:20:00 215 [lb_av] [facility] temperature 2021-09-08 08:20:00 97.4 [degF] [facility] bmi 2021-09-08 08:20:00 29.98 kg/m2 [facility] Height 2021-08-03 16:01:00 177.8 CM Weight 2021-08-03 16:01:00 99.9 KG height 2021-07-27 13:00:00 71 [in_i] [facility] weight 2021-07-27 13:00:00 230 [lb_av] [facility] temperature 2021-07-27 13:00:00 97.8 [degF] [facility] bmi 2021-07-27 13:00:00 32.07 kg/m2 [facility] respiratory rate 2021-07-27 13:00:00 14 /min [facility] Height 2021-04-06 10:35:00 177.8 CM Weight 2021-04-06 10:35:00 101.15 KG Height 2021-03-29 15:08:00 177.8 CM Weight 2021-03-29 15:08:00 99.79 KG Systolic blood 2020-09-13 21:13:00 150 mm[Hg] Univer sity of pressure [facility] Diastolic blood 2020-09-13 21:13:00 90 mm[Hg] Unive rsity of pressure [facility] Heart rate 2020-09-13 21:13:00 103 /min [facility] Body temperature 2020-09-13 21:13:00 36.67 [facility] 2020-09-13 21:13:00 14 /[facility] Body height 2020-09-13 21:13:00 177.8 cm [facility] Body weight 2020-09-13 21:13:00 106.595 kg [facility] BMI 2020-09-13 21:13:00 33.72 kg/m2 [facility] Oxygen saturation in 2020-09-13 21:13:00 99 /min [facility] Arterial blood by [facility] Pulse oximetry Branch Heart Rate 2022-09-11 09:46:00 95 /min [facility] (LUF/BLANCA/SA) Pulse Rate 2022-09-11 09:46:00 94 /min [facility] (LUF/BLANCA/SA) Respiratory Rate 2022-09-11 09:46:00 19 /min [facility] (F/BLANCA/SA) O2% BldC Oximetry 2022-09-11 09:46:00 95 % [facility] (F/BLANCA/SA) BP Systolic 2022-09-11 09:46:00 108 mm[Hg] [facility] (LUF/BLANCA/SA) BP Diastolic 2022-09-11 09:46:00 67 mm[Hg] [facility] (LUF/BLANCA/SA) Body Temperature 2022-09-11 08:06:00 97.9 [degF] [facility] (F/BLANCA/SA) Height 2022-09-11 08:06:00 70 [in_i] [facility] (LUF/BLANCA/SA) Weight 2022-09-11 08:06:00 101 kg [facility] (F/BLANCA/SA) BMI (Body Mass 2022-09-11 08:06:00 32.2 kg/m2 [facility]) [facility] (LUF/BLANCA/SA) BMI 2022-01-31 17:59:00 30.71 kg/m2 [facility] Body height 2022-01-31 17:59:00 177.8 cm [facility] Body weight 2022-01-31 17:59:00 97.07 kg [facility] Systolic blood 2021-11-10 14:06:00 122 mm[Hg] [facility] pressure Diastolic blood 2021-11-10 14:06:00 80 mm[Hg] [facility] pressure Heart rate 2021-11-10 14:06:00 85 /min [facility] Body temperature 2021-11-10 14:06:[address] [facility] Oxygen saturation in 2021-11-10 14:06:00 97 /min [facility] Arterial blood by Pulse oximetry Respiratory Rate 2021-08-03 16:01:00 18 /min [facility] (F/BLANCA/SA) O2% BldC Oximetry 2021-08-03 16:01:00 98 % [facility] (LUF/BLANCA/SA) BP Systolic 2021-08-03 16:01:00 119 mm[Hg] [facility] (LUF/BLANCA/SA) BP Diastolic 2021-08-03 16:01:00 81 mm[Hg] [facility] (LUF/BLANCA/SA) Height 2021-08-03 16:01:00 70 [in_i] [facility] (LUF/BLANCA/SA) Weight 2021-08-03 16:01:00 99.9 kg [facility] (LUF/BLANCA/SA) BMI (Body Mass 2021-08-03 16:01:00 31.8 kg/m2 [facility]) [facility] (F/BLANCA/SA) Body Temperature 2021-08-03 16:01:00 98.8 [degF] [facility] (LUF/BLANCA/SA) Pulse Rate 2021-08-03 16:01:00 95 /min [facility] (LUF/BLANCA/SA) Procedures Procedure Date / Time Performing Clinician Source Performed EKG-12 LEAD 2023-03-07 16:23:24 Gretchen Khan [facility] URINALYSIS 2023-03-07 14:32:00 Gretchen Khan [facility] POCT GLUCOSE (AUTOMATED) 2023-03-07 14:13:00 Gretchen Khan [facility] CREATINE KINASE 2023-03-07 14:00:00 Gretchen Khan [facility] MAGNESIUM 2023-03-07 14:00:00 Gretchen Khan [facility] TROPONIN I 2023-03-07 14:00:00 Gretchen Khan [facility] COMP. METABOLIC PANEL 2023-03-07 14:00:00 Gretchen Khan [facility] ([id number]) [facility] CBC WITH DIFF 2023-03-07 14:00:00 Gretchen Khan [facility] RADEX SPI LUMBOSAC 2022-12-29 00:00:00 Hillary Or thopedic MINIMUM 4 VIEWS Sports Medicine XR LUMBAR SPINE 2 OR 3 2022-01-31 18:08:49 Raquel [facility] VW Yuki COMPREHENSIVE METABOLIC 2021-11-10 15:03:00 [facility] PANEL Yuki LIPID PANEL 2021-11-10 15:03:00 [facility] Yuki THYROID STIMULATING 2021-11-10 15:03:00 [facility] HORMONE Yuki T4, FREE 2021-11-10 15:03:00 [facility] Yuki CBC WITH PLATELET AND 2021-11-10 15:03:00 [facility] DIFFERENTIAL Yuki TESTOSTERONE LEVEL, FREE 2021-11-10 15:03:00 [facility] AND TOTAL, MALE Yuki EX DUODENUM EUGENE/ART 2021-04-06 00:00:00 [facility] ENDO DX Center EXC STOMACH EUGENE/ART 2021-04-06 00:00:00 [facility] ENDO DX Center EXC ESOPH VIA EUGENE ART OP 2021-04-06 00:00:00 [facility] ENDO DX Center EXCISION EGJ VIA EUGENE ART 2021-04-06 00:00:00 [facility] OP ENDO DX Center CBC WITH DIFF 2020-09-13 22:11:00 Luca Bates [facility] CT CERVICAL SPINE WO 2020-09-13 21:44:[address] [facility] CONTRAST [facility] CT HEAD WO CONTRAST 2020-09-13 21:44:[address] [facility] TROPONIN I 2020-09-13 21:37:00 Luca Bates [facility] Plan of Care Planned Activity Planned Date Details Comments Source Future Scheduled 2023-04-28 [facility] 08:16:16 [code = COVID-19 VACCINE (#1)] Future Scheduled 2023-04-28 Pneumococcal Vaccine: [facility] Test 08:16:16 Pediatrics (0 to 5 Years) and At-Risk Patients (6 to 64 Years) (1 - PCV) [code = Pneumococcal Vaccine: Pediatrics (0 to 5 Years) and At-Risk Patients (6 to 64 Years) (1 - PCV)] Future Scheduled 2023-04-28 [facility] 08[facility]16:16 (procedure) [code = 154361691] Future Scheduled 2023-04-28 [facility]UEN[facility]ACCINE (#[facility]) [facility] 08:16:16 [code = INFLUENZA VACCINE (#1)] Future Scheduled 2022-09-13 COVID-19 VACCINE (#1) [facility] 12:56:22 [code = COVID-19 VACCINE (#1)] Future Scheduled 2022-09-13 [facility]neum[facility] 12:56:22 Pediatrics (0 to 5 Years) and At-Risk Patients (6 to 64 Years) (1 - PCV) [code = Pneumococcal Vaccine: Pediatrics (0 to 5 Years) and At-Risk Patients (6 to 64 Years) (1 - PCV)] Future Scheduled 2022-09-13 [facility] Test 12:56:22 (procedure) [code = 115812042] Future Scheduled 2022-09-13 INFLUENZA VACCINE Method [facility] Test 12:56:22 [code = INFLUENZA VACCINE] Future Scheduled 2022-08-02 COVID-19 VACCINE (#1) [facility] Test 08:25:10 [code = COVID-19 VACCINE (#1)] Future Scheduled 2022-08-02 Hepatitis C screening [facility] Test 08:25:10 (procedure) [code = 343653482] Future Scheduled 2022-08-02 INFLUENZA VACCINE Method [facility] Test 08:25:10 [code = INFLUENZA VACCINE] Future Scheduled 2022-04-20 HEPATITIS B VACCINES [facility] Test 11:05:23 (1 of 3 - 3-dose series) [code = HEPATITIS B VACCINES (1 of 3 - 3-dose series)] Future Scheduled 2022-04-20 COVID-19 VACCINE (#1) [facility] Test 11:05:23 [code = COVID-19 VACCINE (#1)] Future Scheduled 2022-04-20 Hepatitis C screening [facility] Test 11:05:23 (procedure) [code = 616958767] Future Scheduled 2022-04-20 INFLUENZA VACCINE [facility] Test 11:05:23 [code = INFLUENZA VACCINE] Encounters Start End Encounter Admission Attending Care Care Encounter Source Date/Time Date/Time Type Type Clinicians Facility Department ID 2023-04-03 Outpatient JOY Mike [facility] [id number] Common 09:59:00 Roseline 81457 [facility] 2023-03-30 Outpatient JOY Mike [facility] [id number] Common 10:12:00 Roseline [id number] [facility] 2023-03-20 Outpatient [facility] [id number] [place] 12:48:45 [id number] [facility] 2023-03-09 Outpatient [facility] [id number] [place] 09:52:54 [id number] [facility] 2023-03-08 Outpatient [facility] [id number] [place] 13:53:31 [id number] [facility] 2023-02-27 [place]patient [place] [facility] [id number] Common 14:04:00 Roseline 13619 [facility] 2023-01-25 Outpatient [place], STNAEEM [facility] [id number] Common 13:29:00 Roseline 81214 [facility] 2022-12-[address] CeeNAEEM STLMLC [id number] Common 08:44:01 Roseline 51216 [facility] 2022-12-07 Outpatient Cee STNAEEM STLMLC [id number] Common 15:48:00 Roseline 24510 [facility] 2022-04-21 Outpatient Cee STNAEEM STLMLC [id number] Common 14:42:01 Roseline [facility] 2022-04-18 Outpatient Cee STNAEEM STLMLC [id number] Common 09:35:01 Roseline [facility] 2022-04-13 Outpatient [facility] [id number] [place] 09:52:46 [id number] [facility] 2022-04-12 Outpatient LS[facility] [id number] [place] 11:16:12 [id number] [facility] 2022-04-06 Outpatient LSCH [facility] [id number] [place] 13:04:12 [id number] [facility] 2021-09-15 Outpatient Cee STNAEEM STLMLC [id number] Common 14:37:20 Roseline [facility] 2021-09-15 Outpatient Cee STNAEEM STLMLC [id number] Common 14:36:16 Roseline [facility] 2021-09-15 Outpatient Cee STNAEEM STLMLC [id number] Common 14:14:39 Roseline [facility] 2021-09-15 Outpatient STNAEEM STLMLC [id number] Common 13:12:16 [id number] [facility] 2023-04-21 2023-04-21 Outpatient CAT LYNNEORB [id number] [facility] 07:45:00 07:45:00 [place] 2023-04-21 2023-04-21 Outpatient CAT POZOB [id number] [facility] 07:00:00 07:00:00 [place] 2023-04-17 2023-04-17 Outpatient CAT POZOORB [id number] [facility] 07:30:00 07:30:00 [place] 2023-04-14 2023-04-14 Outpatient DE MONROY, UTDCB UT[facility]B [id number] [facility] 07:00:00 07:00:00 [place] 2023-04-07 2023-04-07 Outpatient AVIS, UTDCB UT[facility] [id number] [facility] 08:30:00 08:30:00 [facility] 2023-03-31 2023-03-31 Outpatient DE MONROY, UTDCB UTDCB [id number] [facility] 07:00:00 07:00:00 [place] 2023-03-29 2023-03-29 Outpatient DE MONROY, UTDCB UTDCB [id number] [facility] 08:30:00 08:30:00 [place] 2023-03-27 2023-03-27 Outpatient AVIS, UTDCB UTDCB [id number] [facility] 07:00:00 07:00:00 [facility] 2023-03-24 2023-03-24 Outpatient DE MONROY, UTDCB UTDCB [id number] [facility] 07:00:00 07:00:00 [place] 2023-03-22 2023-03-22 Outpatient DE MONROY, UTDCB UTDCB [id number] [facility] 08:30:00 08:30:00 [place] 2023-03-20 2023-03-20 Outpatient DE MONROY, UTDCB UTDCB [id number] [facility] 09:30:00 09:30:00 [place] 2023-03-08 2023-03-17 Outpatient AVIS, UTDCB UTDCB [id number] [facility] 16:25:00 13:52:00 [facility] 2023-03-17 2023-03-17 Outpatient DE MONROY, UTDCB UTDCB [id number] [facility] 08:30:00 08:30:00 [place] 2023-03-15 2023-03-15 Outpatient DE MONROY, UTDCB UTDCB [id number] [facility] 09:00:00 09:00:00 [place] 2023-03-13 2023-03-13 Outpatient DE MONROY, UTDCB UTDCB [id number] [facility] 07:30:00 07:30:00 [place] 2023-03-07 2023-03-07 [facility] [id number] Univers 08:56:00 11:46:00 [facility] 2023-03-07 [facility] 1.2.840.114 [id number] Univers 08:56:00 11:46:00 Gretchen ARTEAGA 350.1.13.10 [facility] 4.2.7.2.686 [facility] [phone] [place] [address] [address] 2022-12-30 2022-12-[address] LEONXi [facility] [id number] [facility] [address] 13:11:00 23:59:00 [facility] MADHU Panchal s TENDON LW Memori a BACK INT l (LUF/LI V/SA) 2022-12-30 2022-12-30 Inpatient [facility] [place] [id number] [facility] 00:00:00 00:00:00 [place] [id number] [facility], [id number] Memor ia [address] [id number] l [place] (LUF/LI AVE, V/SA) JAIRO PASCAL [address] 2022-12-30 2022-12-30 Inpatient [facility] edc 1b32-6 [facility] St 00:00:00 00:00:00 [place] [id number] [facility], [id number] Memor ia [address] [id number] l [place] (LUF/LI AVE, V/SA) JAIRO PASCAL [id number] 2022-12-29 2022-12-29 Outpatient SARAI_ALEXIS_Elmer AOSM AO 343 [id number] Hillary 00:00:00 00:00:00 AVID 788288 [facility] 2022-12-29 2022-12-29 [place] AO [place] - Ortho [id number] 1 Hillary 00:00:00 00:00:00 Nimesh Murguia - Or brooke Dawn MD: SARAI [place]_Ofc di c [address], [place] [address] , Ph. 2022-12-14 2022-12-14 Outpatient OLS_BOWEN_D AOSM AOSM 343 [id number] Hillary 00:00:00 00:00:00 AVID [id number] [facility] 2022-12-12 2022-12-12 Outpatient OLS_RAABE_T AOSM AOSM 343 4770-20 Hillary 00:00:00 00:00:00 ODD 437856 [facility] 2022-09-11 2022-09-11 CONCUSSION 1 HELLEN, [facility] 0 [id number] [facility] 08:00:00 09:58:00 [facility] [address] ENC [address] (LUF/LI AVE, V/SA) [place] [address] 2022-09-11 2022-09-11 Inpatient [facility] [id number] [id number] [facility] 00:00:00 00:00:00 [place] [id number] [facility], [phone] Memor ia [address] [id number] l [place] (LUF/LI AVE, V/[place]) [place] [address] 2022-09-11 2022-09-11 Inpatient [facility] 8d27 [id number]-[id number] [facility] 00:00:00 00:00:00 [place] [id number] [facility], [id number] Memor ia [address] [id number] l [place] (LUF/LI AVE, V/SA) [place] [address] 2022-04-26 2022-04-26 OFFICE STLMLC STLMLC [id number] Co mmon 00:00:00 00:00:00 VISIT EST Spir it PT LEVEL 3 - CHI [facility] 2022-04-20 2022-04-20 OFFICE STLMLC STLMLC [id number] Co mmon 00:00:00 00:00:00 VISIT Spirit ESTAB PT - CHI LEVEL 4 [facility] 2022-02-08 2022-02-08 Hospital [place], 1.2.840.1 [id number] 69991 Methodi 12:22:40 23:59:00 Encounter Carson 12260.1.1 444 s t Wilfredo 3.430.2.7 Hosp heidi .3.094015 l .8 2022-02-08 2022-02-08 [facility], 1.2.840.1 [id number] 98424 Methodi 12:22:29 23:59:00 Encounter Carson 35744.1.1 427 s t Wilfredo 3.430.2.7 Hosp heidi .3.420828 l .8 2022-02-08 2022-02-08 Office [place], 1.2.840.1 [id number] 0794 Methodi 12:00:00 13:02:25 Visit Carson 02732.1.[address] Wilfredo 3.430.2.7 Hosp heidi .3.382432 l .8 2022-01-31 2022-01-31 [facility], 1.2.840.1 [id number] [id number] Methodi 13:07:48 23:59:00 Encounter Kylee 00255.1.[address] Yuki 3.430.2.7 Hospit a .3.376157 l .8 2022-01-31 2022-01-31 Office [place] 1.2.840. 1 [id number] Methodi 13:00:00 14:17:53 Visit Raquel Kylee Yuki 76157.1.[address] 3.430.2.7 Hospit a .3.696171 l .8 2022-01-31 2022-01-31 Outpatient [facility] [id number] [place] 00:00:00 00:00:00 KYLEE [address] 2022-01-31 2022-01-31 Travel 1.2.840.1 1.2.156.620 [id number] [id number] Methodi 00:00:00 00:00:[address] 3.430.2.7 0.2.7.3.698 Ho spita .3.814921 084.8 l .8 2022-01-31 2022-01-31 Orders Raquel, 1.2.840.1 [id number] Methodi 00:00:00 00:00:00 Only Kylee 84254.1.[address] Yuki 3.430.2.7 Hospit a .3.122761 l .8 2022-01-27 2022-01-27 Travel 1.2.840.1 1.2.518.242 3118 [id number] Methodi 00:00:00 00:00:[address] 3.430.2.7 0.2.7.3.698 Ho spita .3.442743 084.8 l .8 2022-01-25 2022-01-25 Travel 1.2.840.1 1.2.362.970 7374 253146 Methodi 00:00:00 00:00:[address] 3.430.2.7 0.2.7.3.698 Ho spita .3.145890 084.8 l .8 2021-11-16 2021-11-16 [place], 1.2.840.1 [id number] [id number] Methodi 00:00:00 00:00:00 Only Emily 88029.1.[address] Yuki 3.430.2.7 Hospit a .3.858746 l .8 2021-11-10 2021-11-10 Maryuri Joy, 1.2.840.1 [id number] Methodi 09:00:00 09:54:57 Visit Emily 96008.1.[address] Yuki 3.430.2.7 Hospit a .3.052376 l .8 2021-11-10 2021-11-10 Travel 1.2.840.1 1.2.983.898 9539 [id number] Methodi 00:00:00 00:00:[address] 3.430.2.7 0.2.7.3.698 Ho spita .3.632650 084.8 l .8 2021-11-08 2021-11-08 Travel 1.2.840.1 1.2.742.776 9277 666155 Methodi 00:00:00 00:00:[address] 3.430.2.7 0.2.7.3.698 Ho spita .3.064496 084.8 l .8 2021-09-08 2021-09-08 [facility] [id number] Co mmon 00:00:00 00:00:00 VISIT Jad VALERIO PT - CHI LEVEL 4 [facility] 2021-09-08 2021-09-08 [facility] [id number] Common 00:00:00 00:00:00 MEDICARE Spiri t PREV PHY - CHI EXAM [facility] 2021-08-03 2021-08-04 LOW BACK 1 [facility] [id number] 15:54:00 21:48:00 PAIN[facility] UNSPECIFIE Memor ia D l (LUF/LI V/SA) 2021-08-03 2021-08-03 Inpatient [facility] [id number] 00:00:00 00:00:00 [facility] [id number] 8 [facility] [address], [id number] [place], (LUF/[place] [address] 2021-08-03 2021-08-03 Inpatient [facility] [id number] -[address] 00:00:00 00:00:00 [facility] [id number]- 9 [facility] [address] [id number] [id number] [place], (LUF/[place] [address] 2021-07-27 2021-07-27 [facility] [id number] Co mmon 00:00:00 00:00:00 VISIT Jad VALERIO PT - CHI LEVEL 4 [facility] 2021-05-21 2021-05-21 Outpatient Girish DAY [facility] [id number] 09:00:00 09:00:00 [facility] 2021-04-28 2021-04-28 OFFICE STLMLC STLMLC [id number] Co mmon 00:00:00 00:00:00 VISIT EST Spir it PT LEVEL 3 - [facility] 2021-04-21 2021-04-21 Outpatient STLMLC STLMLC [id number] Common 00:00:00 00:00:00 [facility] 2021-04-14 2021-04-14 Outpatient STLMLC STLMLC [id number] Common 00:00:00 00:00:00 [facility] 2021-04-06 2021-04-06 Outpatient Girish DAY [facility] [id number] [address] 09:19:00 13:09:00 [facility] 2021-03-04 2021-03-04 Outpatient STLMLC STLMLC [id number] Common 00:00:00 00:00:00 [facility] 2021-02-08 2021-02-08 Outpatient STLMLC STLMLC [id number] Common 00:00:00 00:00:00 [facility] 2021-01-26 2021-01-26 Outpatient STLMLC STLMLC [id number] Common 00:00:00 00:00:00 [facility] 2020-09-13 2020-09-13 Emergency [facility], [facility] 1.2.840.114 [id number] Univers 15:08:00 17:08:00 Luca Arteaga 350.1.13.10 i zachary Ravinder 4.2.7.2.686 [facility] [id number] [place] [address] [address] 2020-09-13 2020-09-13 Emergency X BATES, [facility] ERT [id number] Univers 15:08:00 15:08:00 LUCA galloway [facility] Results Test Description Test Time Test Comments Results Result Comments Source TROPONIN I 2023-03-07 14:54:36 Test Item Value Reference Range Interpretation Comme nts TROPONIN I (test code = 4633062285) 0.002 ng/mL <=0.034 RICCARDO (test code = RICCARDO) Reference (Normal) Range (defined by the 99th percentile reference limit): <= 0.034 ng/mL Note: Cardiac troponin begins to rise 3-4 hours after the onset of ischemia. Repeat in 4-6 hours if the sample was drawn within 3-4 hours of the onset of the symptom and found normal. Diagnosis of myocardial injury is made with acute changes in cTn concentrations with at least one serial sample above the 99th percentile upper reference limit (URL), taken together with the patient's clinical presentation. Biotin has been reported to cause a negative bias, interpret results relative to patient's use of biotin. Lab Interpretation (test code = Normal 52811-5) [facility] 14[facility]40:14 Test Item Value Reference Range Interpretation Comments MAGNESIUM (test code = 0468990660) 2.3 mg/dL 1.7-2.4 Lab Interpretation (test code = Normal 35321-0) [facility] (98944)2023-03-07 14:39:33 Test Item Value Reference Range Interpretation Comments NA (test code = 142 mmol/L 135-145 8025377858) K (test code = 3.8 mmol/L 3.5-5.0 6639050303) CL (test code = 106 mmol/L 98-108 4052572844) CO2 TOTAL (test code = 27 mmol/L 23-31 0748173694) AGAP (test code = 9 2-16 0713558580) BUN (test code = 31 mg/dL 7-23 H 8050033658) GLUCOSE (test code = 107 mg/dL 70-110 9735189831) CREATININE (test code = 1.13 mg/dL 0.60-1.25 3408922560) TOTAL BILI (test code = 0.6 mg/dL 0.1-1.0 6958955771) CALCIUM (test code = 9.2 mg/dL 8.6-10.6 2923318645) T PROTEIN (test code = 7.9 g/dL 6.3-8.2 1824750260) ALBUMIN (test code = 4.3 g/dL 3.5-5.0 0605186114) ALK PHOS (test code = 110 U/L 34-122 2015414925) ALTv (test code = 30 U/L 5-50 2-6) AST(SGOT) (test code = 23 U/L 13-40 2814821911) eGFR (test code = 70.8 mL/min/1.73m2 5790909198) RICCARDO (test code = RICCARDO) Association of Glomerular Filtration Rate (GFR) and Staging of Kidney Disease* + --+ --+ ------+| GFR (mL/min/1.73 m2) ?| With Kidney Damage ?| ?Without Kidney Damage+ --------+ --------+ +| ?>90 ?| ?Stage one ?| ? Normal ?+ ---+ ---+ -------+| ?60-89 ?| ?Stage two ?| ? Decreased GFR ? + --+ --+ ------+| ?30-59 ?| ?Stage three ?| ? Stage three ? + --+ --+ ------+| ?15-29 ?| ?Stage four ? | ? Stage four ?+ ---+ ---+ -------+| ?<15 (or dialysis) ? ?| ?Stage five ? | ? Stage five ?+ ---+ ---+ -------+ *Each stage assumes the associated GFR level has been in effect for at least three months. ?Stages 1 to 5, with or without kidney disease, indicate chronic kidney disease. Notes: Determination of stages one and two (with eGFR >59mL/min/1.73 m2) requires estimation of kidney damage for at least three months as defined by structural or functional abnormalities of the kidney, manifested by either:Pathological abnormalities or Markers of kidney damage (including abnormalities in the composition of the blood or urine or abnormalities in imaging tests). Lab Interpretation Abnormal (test code = 65602-1) [facility] [id number] 14:39:33 Test Item Value Reference Range Interpretation Comments CK (test code = 1141316958) 104 U/L 33-194 Lab Interpretation (test code = Normal 54429-2) [facility] WITH [id number] 14:32:13 Test Item Value Reference Range Interpretation Comments WBC (test code = 7.08 See_Comment [Automated message] 6590-2) The system [employer] generated this result transmitted ref erence range: 4.20 - 1 0.70 10*3/?L. The re ference range was not u sed to interpret this result as normal/abnor mal. RBC (test code = 5.04 See_Comment [Automated message] 789-8) The system [employer] generated this result transmitted ref erence range: 4.26 - 5 .52 10*6/?L. The re ference range was not u sed to interpret this result as normal/abnor mal. HGB (test code = 15.3 g/dL 12.2-16.4 718-7) HCT (test code = 44.7 % 38.4-49.3 4544-3) MCV (test code = 88.7 fL 81.7-95.6 787-2) MCH (test code = 30.4 pg 26.1-32.7 785-6) MCHC (test code = 34.2 g/dL 31.2-35.0 786-4) RDW-SD (test code 43.4 fL 38.5-51.6 = 98427-0) RDW-CV (test code 13.4 % 12.1-15.4 = 788-0) PLT (test code = 166 See_Comment [Automated message] 777-3) The system [employer] generated this result transmitted ref erence range: 150 - 32 8 10*3/?L. The re ference range was not u sed to interpret this result as normal/abnor mal. MPV (test code = 10.9 fL 9.8-13.0 29245-6) NRBC/100 WBC (test 0.0 See_Comment [Automat ed message] code = 2512526772) The syste [employer] which generated this result transmitted ref erence range: 0.0 - 10 .0 /100 WBCs. The refer ence range was not u sed to interpret this result as normal/abnor mal. NRBC x10^3 (test See_Comment [Automated message] code = 5874959282) The syste m which generated this result transmitted ref erence range: 10*3/?L. The reference range was not used to interpr et this result as normal/abnormal . GRAN MAT (NEUT) % 46.3 % (test code = 770-8) IMM GRAN % (test 0.30 % code = 8231127040) LYMPH % (test code 42.2 % = 736-9) MONO % (test code 8.5 % = 5905-5) EOS % (test code = 2.0 % 713-8) BASO % (test code 0.7 % = 706-2) GRAN MAT 3.28 10*3/uL 1.99-6.95 x10^3(ANC) (test code = 8888794483) IMM GRAN x10^3 0.00-0.06 (test code = 9916585282) LYMPH x10^3 (test 2.99 10*3/uL 1.09-3.23 code = 731-0) MONO x10^3 (test 0.60 10*3/uL 0.36-1.02 code = 742-7) EOS x10^3 (test 0.14 10*3/uL 0.06-0.53 code = 711-2) BASO x10^3 (test 0.05 10*3/uL 0.01-0.09 code = 704-7) [facility]2023-03-07 14:15:23 Test Item Value Reference Range Interpretation Comments POCT GLU (test code = 0363307560) 97 mg/dL 70-110 Lab Interpretation (test code = Normal 90508-5) [facility] LSPINE W/O [id number] 04:53:43 [facility])Name: IVETTE LAWTON : 1980 Sex: MProcedure: TIC MRI LSPINE W/O CONTRASTOrder Date: 12/30/2022 1:45 PMOrdering Provider: DR MADHU QUINTEROClinical Indication: Low back pain radiating to both legs. Right foot numbness.Lifting injury December 06omparison: August 03, 2021Technique: Multiplanar, multisequence MR images of the lumbar spine wereobtained without contrast.Findings:No evidence of vertebral body compression deformity or acute fracture. Noscoliosis.Spinal cord terminates at an appropriate level and is normal in signal andmorphology. Cauda equina separate appropriately.T12-L1: Unremarkable.L1-L2: Unremarkable.L2-L3: Unremarkable.L3- L4: Mild 4 mm disc bulge asymmetric to the left with mild left subarticular recess stenosis. No spinal canal or foraminal stenosis.L4-L5: Mild facet arthrosis with trace disc bulge. No focal disc protrusion. Nospinal canal or foraminal stenosis.L5-S1: Postoperative changes of decompressive laminectomy with anterior andposterior fusion. No spinal canal stenosis yet there is mild to moderatebilateral foraminal stenosis secondary to bony ridging.Prevertebral and paravertebral soft tissues are unremarkable.Impression:Postoperative changes at L5-S1 without high-grade stenosis asoutlined above.Relatively mild lumbar spondylosis at the remaining levels with a mildasymmetric to the left disc bulge at L3-L4.This final report was electronically signed by Dr Yves Pendleton MD 34:48 AMDictated By: YVES PENDLETONDate: 01/02/2023 04:48STLMLCT CERVICAL SPINE W/O [id number] 09:24:56 [facility]Name: IVETTE LAWTON : 1980 Sex: MProcedures: CT CERVICAL SPINE W/O CONTRASTExam Date: 09/11/2022 8:29 AMOrdering Physician: WILBERTO MACEDOClinical Indication: [id number]: Injury of neckComparison: None available.TECHNIQUE: Axial, coronal, and sagittal CT images of the cervical spine areexamined without intravenous contrast.Thisexam was performed according to the our departmental dose-optimizationprogram which includes automated exposure control, adjustment of the mA and/orkV according to patient size and/or use of iterative reconstruction techniques.Findings:OSSEOUS: No fracture or aggressive osseous lesion. No significant nanda-orretrolisthesis. The dens is intact. The lateral masses are normally aligned. Nosignificant prevertebral soft tissue thickening. Multilevel degenerative changesof the cervical spine are noted with small anterior disc osteophyte complexes,uncovertebral degenerative change, and facet arthropathy.No significant osseousspinal canal narrowing.HEAD: Limited evaluation of the intracranial contents is without significantintracranial abnormalities. The skull base is within normal limits.SOFT TISSUE SPACES: The soft tissue spaces of the neck are preserved. Tissueplanes are within normal limits. No abnormal mass lesion.VASCULAR: Evaluation of the vasculature is limited without intravenouscontrast. Noobvious vascular abnormalities are demonstrated on this exam.LUNG APEX: No significant CT abnormalities of the lung apices.OTHER: No significant abnormalities of the remaining soft tissues.IMPRESSION:1. No significant CT evidence of acute traumatic injury of the cervical spine.2. Mild degenerative changes, as above.This final report was electronically signed by Dr Elia Gurrola MD09/11/2022 9:19AMDictated By: ELIA VILLEDADate: 09/11/2022 09:19STLML CT HEAD W/O [id number] 08:54:56 [facility]Name: IVETTE LAWTON : 1980 Sex: MProcedures: CT HEAD W/O CONTRASTExam Date: 09/11/2022 8:30 AMOrdering Physician: ALICE REYNOLDS HAWClinical Indication: [id number]: Closed injury of headComparison: None available.TECHNIQUE: Using a helical scanner, spiral axial imaging of the brain wasobtained from the skull base to vertex without intravenous contrast.This exam was performed according to the our departmental dose-optimizationprogram which includes automated exposure control, adjustment of the mA and/orkV according to patientsize and/or use of iterative reconstruction techniques.FINDINGS:Hemorrhage: No intraparenchymal or extra-axial hemorrhage.Masses: No intraparenchymal or extra-axial masses.Brain: Vyas-white matter differentiation is normal. No mass effect or midlineshift. No sulcal effacement.Ventricles: Normal.Vascular: Limited evaluation without intravenous contrast.Sinuses: Normal.Orbits: No significant abnormality.Bones: No fracture or aggressive osseous lesion.IMPRESSION:No CT evidence of acute intracranial abn ormality.This final report was electronically signed by Dr Elia Gurrola MD09/11/2022 8:49 AMDictated By: ELIA VILLEDADate: 09/11/2022 08:49STLML Testosterone level, free and total, [id number] 22:08:00 Test Item Value Reference Range Interpretation Comments Testosterone (test 171 ng/dL 264-916 L Adult mal e code = 2986-8) reference interval is based on a population ofhealthy nonobese males (BMI <30) between 19 and 39 years old.Giuliana et.al. JCEM 2017,102;1161-1 1 73. PMID: 14141119. Testosterone, free 3.2 pg/mL 6.8-21.5 L (test code = 2991-8) RICCARDO (test code = RICCARDO) Performed at: [address] [place] [address] [id number] Director: Michael Cunningham MD, Phone: [phone] ed at: [address] [id number] Director: Terry Reyna MD, Phone: [phone] Lab Interpretation Abnormal (test code = 17498-3) [facility] and [facility], [id number] 22:08:00 Test Item Value Reference Range Interpretation Comments Testosterone (test 171 ng/dL 264-916 L Adult mal e code = 2986-8) reference interval is based on a population ofhealthy nonobese males (BMI <30) between 19 and 39 years old.Travison, et.al. JCEM 2017,102;1161-1 1 73. PMID: 26779006. Testosterone, free 3.2 pg/mL 6.8-21.5 L (test code = 2991-8) RICCARDO (test code = RICCARDO) Performed at: [address] [place] [address] [id number] Director: Michael Cunningham MD, Phone: [phone] ed at: [address] [id number] Director: Terry Reyna MD, Phone: [phone] Lab Interpretation Abnormal (test code = 70996-6) [facility], [facility] and total, [id number] 22:08:00 Test Item Value Reference Range Interpretation Comments Testosterone (test 171 ng/dL 264-916 L Adult mal e code = 2986-8) reference interval is based on a population ofhealthy nonobese males (BMI <30) between 19 and 39 years old.Travison, et.al. JCEM 2017,102;1161-1 1 73. PMID: 63739552. Testosterone, free 3.2 pg/mL 6.8-21.5 L (test code = 2991-8) RICCARDO (test code = RICCARDO) Performed at: [address] [place] [address] [id number] Director: Michael Cunningham MD, Phone: [phone] ed at: 02 - [facility] [id number] Director: Terry Reyna MD, Phone: [phone] Lab Interpretation Abnormal (test code = 11917-0) [facility] [id number] 13:12:00 Test Item Value Reference Range Interpretation Comments Glucose (test code = 90 mg/dL 65-99 2345-7) BUN (test code = 23 mg/dL 6-24 3094-0) Creatinine (test code 1.26 mg/dL 0.76-1.27 = 2160-0) eGFR (test code = 73 mL/min/1.73 See_Comment [Automa jonathan 8257) message] The system which generated this result transmitted reference range : >=59. The reference range was not used to interpret this result as normal/abnormal . BUN/creatinine ratio 9-20 (test code = 3097-3) Sodium (test code = 142 mmol/L 552-651 1704-2) Potassium (test code 4.1 mmol/L 3.5-5.2 = 2823-3) Chloride (test code = 100 mmol/L 96-106 2075-0) CO2 (test code = 23 mmol/L -29 8-9) Calcium (test code = 9.6 mg/dL 8.7-10.2 76984-1) Protein (test code = 7.8 g/dL 6.0-8.5 2885-2) Albumin, S (test code 4.7 g/dL 4.0-5.0 = 1751-7) Globulin, total (test 3.1 g/dL 1.5-4.5 code = 05878-9) Albumin/globulin 1.2-2.2 ratio (test code = 1759-0) Total bilirubin (test 0.4 mg/dL 0.0-1.2 code = 1975-2) Alkaline phosphatase See_Comment H [Autom ated (test code = 6768-6) message ] The system which generated this result transmitted reference range : 44 - 121 IU/L. The reference range was not used to interpr et this result as normal/abnormal . AST (test code = See_Comment [Automated 1920-03) message] The system which generated this result transmitted reference range : 0 - 40 IU/L. Th e reference range was not used to interpret this result as normal/abnormal . ALT (test code = See_Comment [Automated 1741-) message] The system which generated this result transmitted reference range : 0 - 44 IU/L. Th e reference range was not used to interpret this result as normal/abnormal . RICCARDO (test code = RICCARDO) Performed at: [address] [place] [address] [id number] Director: Michael Cunningham MD, Phone: [phone] Lab Interpretation Abnormal (test code = 28218-3) [facility] Center[facility] [id number] 13:12:00 Test Item Value Reference Range Interpretation Comments Cholesterol (test 189 mg/dL 100-199 code = 2093-3) Triglycerides (test 141 mg/dL 0-149 code = 2571-8) HDL cholesterol (test 52 mg/dL See_Comment [Auto mated code = 2084-9) message] The system which generated this result transmitted reference range : >=39. The reference range was not used to interpret this result as normal/abnormal . VLDL cholesterol carol 25 mg/dL 5-40 (test code = 63164-8) LDL Chol Calc ([facility]) 112 mg/dL 0-99 H (test code = 67192-2) Non-HDL cholesterol 137 mg/dL 0-129 H (test code = 86568-2) RICCARDO (test code = RICCARDO) Performed at: [address] [place] [address] [id number] Director: Michael Cunningham MD, Phone: [phone] Lab Interpretation Abnormal (test code = 08050-0) [facility] CenterT4, [id number] 13:12:00 Test Item Value Reference Range Interpretation Comments T4, free (test code 1.18 ng/dL 0.82-1.77 = 3024-7) RICCARDO (test code = Performed at: RICCARDO) [address] [id number] Director: Michael Cunningham MD, Phone: [phone] [facility] CenterThyroid stimulating [id number] 13:12:00 Test Item Value Reference Range Interpretation Comments TSH (test code See_Comment [Automated m essage] = 67969-0) The system whic h generated this result transmit jonathan reference range : 0.450 - 4.500 uIU/mL. The reference range was not used to interpret this result as normal/abnormal . RICCARDO (test code Performed at: 01 - = RICCARDO) [facility] [address] [place], [place] [id number] Director: Michael Cunningham MD, Phone: [phone] [facility] with platelet and qxhxkeeqylmv1458-95-62 13:12:00 Test Item Value Reference Range Interpretation Comments WBC (test code = See_Comment [Automated 0790-2) message] The system which generated this result transmit jonathan reference range : 3.4 - 10.8 x10E3/uL. The reference range was not used to interpret this result as normal/abnormal . RBC (test code = See_Comment [Automated 789-8) message] The system which generated this result transmit jonathan reference range : 4.14 - 5.80 x10E6/uL. The reference range was not used to interpret this result as normal/abnormal . HGB (test code = 16.0 g/dL 13.0-17.7 718-7) HCT (test code = 48.5 % 37.5-51.0 4544-3) MCV (test code = 89 fL 79-97 787-2) MCH (test code = 29.4 pg 26.6-33.0 785-6) MCHC (test code = 33.0 g/dL 31.5-35.7 786-4) RDW (test code = 13.1 % 11.6-15.4 788-0) Platelet count See_Comment [Automated (test code = 777-3) message] The system which generated this result transmit jonathan reference range : 150 - 450 x10E3/uL. The reference range was not used to interpret this result as normal/abnormal . Neutrophils (test 50 % Not Estab. code = 770-8) Lymphocytes (test 37 % Not Estab. code = 736-9) Monocytes (test 10 % Not Estab. code = 5905-5) Eosinophils (test 2 % Not Estab. code = 713-8) Basophils (test 1 % Not Estab. code = 706-2) Neutrophils, See_Comment [Automated absolute (test code message] The = 751-8) system which generated this result transmit jonathan reference range : 1.4 - 7.0 x10E3/uL. The reference range was not used to interpret this result as normal/abnormal . Lymphocytes, See_Comment [Automated absolute (test code message] The = 731-0) system which generated this result transmit jonathan reference range : 0.7 - 3.1 x10E3/uL. The reference range was not used to interpret this result as normal/abnormal . Monocytes, absolute See_Comment [Automa jonathan (test code = 742-7) message] The system which generated this result transmit jonathan reference range : 0.1 - 0.9 x10E3/uL. The reference range was not used to interpret this result as normal/abnormal . Eosinophils, See_Comment [Automated absolute (test code message] The = 711-2) system which generated this result transmit jonathan reference range : 0.0 - 0.4 x10E3/uL. The reference range was not used to interpret this result as normal/abnormal . Basophils, absolute See_Comment [Automa jonathan (test code = 704-7) message] The system which generated this result transmit jonathan reference range : 0.0 - 0.2 x10E3/uL. The reference range was not used to interpret this result as normal/abnormal . Immature 0 % Not Estab. granulocytes (test code = 92507-6) Immature See_Comment [Automated granulocytes, message] The absolute (test code system w [facility] = 24345-3) generated this result transmit jonathan reference range : 0.0 - 0.1 x10E3/uL. The reference range was not used to interpret this result as normal/abnormal . RICCARDO (test code = Performed at: RICCARDO) - [facility] [address] [place], [place] [id number] Director: Michael Cunningham MD, Phone: [phone] [facility] CenterCom[facility] metabolic [id number] 13:12:00 Test Item Value Reference Range Interpretation Comments Glucose (test code = 90 mg/dL 65-99 2345-7) BUN (test code = 23 mg/dL 6-24 3094-0) Creatinine (test code 1.26 mg/dL 0.76-1.27 = 2160-0) eGFR (test code = 73 mL/min/1.73 See_Comment [Automa jonathan 8257) message] The system which generated this result transmitted reference range : >=59. The reference range was not used to interpret this result as normal/abnormal . BUN/creatinine ratio 18 9-20 (test code = 3097-3) Sodium (test code = 142 mmol/L 434-402 1876-2) Potassium (test code 4.1 mmol/L 3.5-5.2 = 2823-3) Chloride (test code = 100 mmol/L 96-106 2075-0) CO2 (test code = 23 mmol/L 20-29 8-9) Calcium (test code = 9.6 mg/dL 8.7-10.2 55450-0) Protein (test code = 7.8 g/dL 6.0-8.5 2885-2) Albumin, S (test code 4.7 g/dL 4.0-5.0 = 1751-7) Globulin, total (test 3.1 g/dL 1.5-4.5 code = 29839-5) Albumin/globulin 1.5 1.2-2.2 ratio (test code = 1759-0) Total bilirubin (test 0.4 mg/dL 0.0-1.2 code = 1974-2) Alkaline phosphatase 137 See_Comment H [Autom ated (test code = 6768-6) message ] The system which generated this result transmitted reference range : 44 - 121 IU/L. The reference range was not used to interpr et this result as normal/abnormal . AST (test code = 26 See_Comment [Automated 1920-03) message] The system which generated this result transmitted reference range : 0 - 40 IU/L. Th e reference range was not used to interpret this result as normal/abnormal . ALT (test code = 40 See_Comment [Automated 1742-01) message] The system which generated this result transmitted reference range : 0 - 44 IU/L. Th e reference range was not used to interpret this result as normal/abnormal . RICCARDO (test code = RICCARDO) Performed at: [facility] [address] [id number] Director: Michael Cunningham MD, Phone: [phone] Lab Interpretation Abnormal (test code = 15059-6) [facility] CenterLipid [id number] 13:12:00 Test Item Value Reference Range Interpretation Comments Cholesterol (test 189 mg/dL 100-199 code = 2093-3) Triglycerides (test 141 mg/dL 0-149 code = 2571-8) HDL cholesterol (test 52 mg/dL See_Comment [Auto mated code = 2085-9) message] The system which generated this result transmitted reference range : >=39. The reference range was not used to interpret this result as normal/abnormal . VLDL cholesterol carol 25 mg/dL 5-40 (test code = 96950-6) LDL Chol Calc ([facility]) 112 mg/dL 0-99 H (test code = 72857-5) Non-HDL cholesterol 137 mg/dL 0-129 H (test code = 49077-9) RICCARDO (test code = RICCARDO) Performed at: [address] [id number] Director: Michael Cunningham MD, Phone: [phone] Lab Interpretation Abnormal (test code = 98411-1) [place] [address], [id number] 13:12:00 Test Item Value Reference Range Interpretation Comments T4, free (test code 1.18 ng/dL 0.82-1.77 = 3024-7) RICCARDO (test code = Performed at: RICCARDO) [address] [id number] Director: Michael Cunningham MD, Phone: [phone] [facility] CenterThyroid stimulating [id number] 13:12:00 Test Item Value Reference Range Interpretation Comments TSH (test code 4.500 See_Comment [Automated m essage] = 77725-7) The system whic h generated this result transmit jonathan reference range : 0.450 - 4.500 uIU/mL. The reference range was not used to interpret this result as normal/abnormal . RICCARDO (test code Performed at: - = RICCARDO) [facility] [id number] Director: Michael Cunningham MD, Phone: [phone] [facility] with platelet and nkbcmvwipaed7743-99-24 13:12:00 Test Item Value Reference Range Interpretation Comments WBC (test code = 6.2 See_Comment [Automated 6690-2) message] The system which generated this result transmit jonathan reference range : 3.4 - 10.8 x10E3/uL. The reference range was not used to interpret this result as normal/abnormal . RBC (test code = 5.44 See_Comment [Automated 789-8) message] The system which generated this result transmit jonathan reference range : 4.14 - 5.80 x10E6/uL. The reference range was not used to interpret this result as normal/abnormal . HGB (test code = 16.0 g/dL 13.0-17.7 718-7) HCT (test code = 48.5 % 37.5-51.0 4544-3) MCV (test code = 89 fL 79-97 787-2) MCH (test code = 29.4 pg 26.6-33.0 785-6) MCHC (test code = 33.0 g/dL 31.5-35.7 786-4) RDW (test code = 13.1 % 11.6-15.4 788-0) Platelet count 208 See_Comment [Automated (test code = 777-3) message] The system which generated this result transmit jonathan reference range : 150 - 450 x10E3/uL. The reference range was not used to interpret this result as normal/abnormal . Neutrophils (test 50 % Not Estab. code = 770-8) Lymphocytes (test 37 % Not Estab. code = 736-9) Monocytes (test 10 % Not Estab. code = 5905-5) Eosinophils (test 2 % Not Estab. code = 713-8) Basophils (test 1 % Not Estab. code = 706-2) Neutrophils, 3.1 See_Comment [Automated absolute (test code message] The = 751-8) system which generated this result transmit jonathan reference range : 1.4 - 7.0 x10E3/uL. The reference range was not used to interpret this result as normal/abnormal . Lymphocytes, 2.3 See_Comment [Automated absolute (test code message] The = 731-0) system which generated this result transmit jonathan reference range : 0.7 - 3.1 x10E3/uL. The reference range was not used to interpret this result as normal/abnormal . Monocytes, absolute 0.6 See_Comment [Automa jonathan (test code = 742-7) message] The system which generated this result transmit jonathan reference range : 0.1 - 0.9 x10E3/uL. The reference range was not used to interpret this result as normal/abnormal . Eosinophils, 0.2 See_Comment [Automated absolute (test code message] The = 711-2) system which generated this result transmit jonathan reference range : 0.0 - 0.4 x10E3/uL. The reference range was not used to interpret this result as normal/abnormal . Basophils, absolute 0.1 See_Comment [Automa jonathan (test code = 704-7) message] The system which generated this result transmit jonathan reference range : 0.0 - 0.2 x10E3/uL. The reference range was not used to interpret this result as normal/abnormal . Immature 0 % Not Estab. granulocytes (test code = 74938-7) Immature 0.0 See_Comment [Automated granulocytes, message] The absolute (test code system w [facility] = 32294-7) generated this result transmit jonathan reference range : 0.0 - 0.1 x10E3/uL. The reference range was not used to interpret this result as normal/abnormal . RICCARDO (test code = Performed at: 01 RICCARDO) - [facility] [address] [id number] Director: Michael Cunningham MD, Phone: [phone] [facility] CenterCom[facility] [id number] 13:12:00 Test Item Value Reference Range Interpretation Comments Glucose (test code = 90 mg/dL 65-99 2345-7) BUN (test code = 23 mg/dL 6-24 3094-0) Creatinine (test code 1.26 mg/dL 0.76-1.27 = 2160-0) eGFR (test code = 73 mL/min/1.73 See_Comment [Automa jonathan 8257) message] The system which generated this result transmitted reference range : >=59. The reference range was not used to interpret this result as normal/abnormal . BUN/creatinine ratio 9-20 (test code = 3097-3) Sodium (test code = 142 mmol/L 873-654 9403-2) Potassium (test code 4.1 mmol/L 3.5-5.2 = 2823-3) Chloride (test code = 100 mmol/L 96-106 2074-0) CO2 (test code = 23 mmol/L -29 2028-04) Calcium (test code = 9.6 mg/dL 8.7-10.2 21921-1) Protein (test code = 7.8 g/dL 6.0-8.5 2885-2) Albumin, S (test code 4.7 g/dL 4.0-5.0 = 1751-7) Globulin, total (test 3.1 g/dL 1.5-4.5 code = 13499-5) Albumin/globulin 1.2-2.2 ratio (test code = 1759-0) Total bilirubin (test 0.4 mg/dL 0.0-1.2 code = 1974-2) Alkaline phosphatase See_Comment H [Autom ated (test code = 6768-6) message ] The system which generated this result transmitted reference range : 44 - 121 IU/L. The reference range was not used to interpr et this result as normal/abnormal . AST (test code = See_Comment [Automated 1920-03) message] The system which generated this result transmitted reference range : 0 - 40 IU/L. Th e reference range was not used to interpret this result as normal/abnormal . ALT (test code = See_Comment [Automated 1742-01) message] The system which generated this result transmitted reference range : 0 - 44 IU/L. Th e reference range was not used to interpret this result as normal/abnormal . RICCARDO (test code = RICCARDO) Performed at: [address] [place] [address] [id number] Director: Michael Cunningham MD, Phone: [phone] Lab Interpretation Abnormal (test code = 08923-9) [facility] CenterLipid [id number] 13:12:00 Test Item Value Reference Range Interpretation Comments Cholesterol (test 189 mg/dL 100-199 code = 2092-3) Triglycerides (test 141 mg/dL 0-149 code = 257-8) HDL cholesterol (test 52 mg/dL See_Comment [Auto mated code = 2085-04) message] The system which generated this result transmitted reference range : >=39. The reference range was not used to interpret this result as normal/abnormal . VLDL cholesterol carol 25 mg/dL 5-40 (test code = 40503-2) LDL Chol Calc ([facility]) 112 mg/dL 0-99 H (test code = 89176-3) Non-HDL cholesterol 137 mg/dL 0-129 H (test code = 52659-3) RICCARDO (test code = RICCARDO) Performed at: [address] [id number] Director: Michael Cunningham MD, Phone: [phone] Lab Interpretation Abnormal (test code = 32513-1) [facility] CenterT4, [id number] 13:12:00 Test Item Value Reference Range Interpretation Comments T4, free (test code 1.18 ng/dL 0.82-1.77 = 3024-7) RICCARDO (test code = Performed at: RICCARDO) [facility] [id number] Director: Michael Cunningham MD, Phone: [phone] [facility] CenterThyroid stimulating zxviheo0235-34-50 13:12:00 Test Item Value Reference Range Interpretation Comments TSH (test code See_Comment [Automated m essage] = 95519-8) The system whic h generated this result transmit jonathan reference range : 0.450 - 4.500 uIU/mL. The reference range was not used to interpret this result as normal/abnormal . RICCARDO (test code Performed at: - = RICCARDO) [facility] [id number] Director: Michael Cunningham MD, Phone: [phone] [facility] with platelet and ibudccusymnz6156-52-47 13:12:00 Test Item Value Reference Range Interpretation Comments WBC (test code = See_Comment [Automated 9890-2) message] The system which generated this result transmit jonathan reference range : 3.4 - 10.8 x10E3/uL. The reference range was not used to interpret this result as normal/abnormal . RBC (test code = See_Comment [Automated 959-8) message] The system which generated this result transmit jonathan reference range : 4.14 - 5.80 x10E6/uL. The reference range was not used to interpret this result as normal/abnormal . HGB (test code = 16.0 g/dL 13.0-17.7 718-7) HCT (test code = 48.5 % 37.5-51.0 4544-3) MCV (test code = 89 fL 79-97 787-2) MCH (test code = 29.4 pg 26.6-33.0 785-6) MCHC (test code = 33.0 g/dL 31.5-35.7 786-4) RDW (test code = 13.1 % 11.6-15.4 788-0) Platelet count See_Comment [Automated (test code = 777-3) message] The system which generated this result transmit jonathan reference range : 150 - 450 x10E3/uL. The reference range was not used to interpret this result as normal/abnormal . Neutrophils (test 50 % Not Estab. code = 770-8) Lymphocytes (test 37 % Not Estab. code = 736-9) Monocytes (test 10 % Not Estab. code = 5905-5) Eosinophils (test 2 % Not Estab. code = 713-8) Basophils (test 1 % Not Estab. code = 706-2) Neutrophils, See_Comment [Automated absolute (test code message] The = 751-8) system which generated this result transmit jonathan reference range : 1.4 - 7.0 x10E3/uL. The reference range was not used to interpret this result as normal/abnormal . Lymphocytes, See_Comment [Automated absolute (test code message] The = 731-0) system which generated this result transmit jonathan reference range : 0.7 - 3.1 x10E3/uL. The reference range was not used to interpret this result as normal/abnormal . Monocytes, absolute See_Comment [Automa jonathan (test code = 742-7) message] The system which generated this result transmit jonathan reference range : 0.1 - 0.9 x10E3/uL. The reference range was not used to interpret this result as normal/abnormal . Eosinophils, See_Comment [Automated absolute (test code message] The = 711-2) system which generated this result transmit jonathan reference range : 0.0 - 0.4 x10E3/uL. The reference range was not used to interpret this result as normal/abnormal . Basophils, absolute See_Comment [Automa jonathan (test code = 704-7) message] The system which generated this result transmit jonathan reference range : 0.0 - 0.2 x10E3/uL. The reference range was not used to interpret this result as normal/abnormal . Immature 0 % Not Estab. granulocytes (test code = 39181-3) Immature See_Comment [Automated granulocytes, message] The absolute (test code system w [facility] = 13441-2) generated this result transmit jonathan reference range : 0.0 - 0.1 x10E3/uL. The reference range was not used to interpret this result as normal/abnormal . RICCARDO (test code = Performed at: 01 RICCARDO) - [facility] [address] [place], [place] [id number] Director: Michael Cunningham MD, Phone: [phone] [facility] L SPINE W/O MTFLNLVC1916-01-17 20:33:26 [facility] ([facility])Name: IVETTE LAWTON : 1980 Sex: MHistory: Low back pain, radiates down left lower extremity, numbness, fell 3times. History of prior back injury and surgery.Comparison studies: NoneTechnique:Axial images were obtained through the lumbar spine from T12-S1.Coronal and sagittal images reconstructed from the axial data.Dose modulation, iterative reconstruction, and/or weight based adjustment of themA/kV was utilized to reduce radiation dose to as low as reasonably achievable.Intravenous contrast: NoneFindings:The usual 5 non-rib bearing lumbar vertebral bodies are present.Alignment: Normal lordosis. No scoliosis. No subluxation.Soft tissues: Incidental 2 mm left nephrolithiasis.Paraspinal muscles: Fatty atrophy of posterior paraspinal mu scles at the L5-S1.Sacroiliac joints: Mild degenerative changes in bilateral sacroiliac joints withminimal subchondral sclerosis and trace vacuum phenomenon.Vertebrae:Expected postoperative changes from prior laminectomy and posterior lumbosacralspine fusion at L5-S1. Suboptimal evaluation at this level due to metallicstreak artifacts. The metallic hardware is intact. Intervertebral disc spacerdeviceat L5-S1. Tip of left transpedicular screw at level L5 is superior to thesuperior endplate of L5 andis in the intervertebral disc space L4-L5 (image 44,series 5). Right transpedicular fixation screw at level S1, with its tipprojecting beyond the cortical margin (image 120, series 4).No fractures, infection or neoplasm.Degenerative changes:L1-L2:No abnormalities.L2-L3:No abnormalities.L3-L4:No abnormalities.L4-L5:Mild degenerative disc disease.Disc bulge and thickened ligamentum flavum effaces thecal sac withoutsignificant canal stenosis.Mild bilateral foraminal stenosis.L5-S1:Expected postoperative changes.No canal stenosis.Moderate bilateral facet arthrosis.Moderate bilateral foraminal stenosis.IMPRESSION:1. No acute lumbar spine fracture or dislocation.2. Lumbar spondylosis without significantcanal stenosis. Mild bilateralforaminal stenosis at L4-L5 and moderate bilateral foraminal stenosis a t L5-S1.3. Postoperative changes from prior laminectomy and posterior fusion at L5-S1as detailed above.4. Ligament, spinal cord and or vascular abnormalities cannot be excluded onthe basis of this examination.This final report was electronically signed by Dr Viridiana Manrique MD :28 PMDictated By: MARISELA MANRIQUEADate: 08/03/2021 20:28STLMLCBC with [id number] 22:22:00 Test Item Value Reference Range Interpretation Comments WBC (test code = See_Comment [Automated 8984-2) message] The sy stem which generated this result transmitted reference range : 4.20 - 10.70 10*3/?L. The reference range was not used to interpret this result as normal/abnormal . RBC (test code = See_Comment H [Automated 186-8) message] The sy stem which generated this result transmitted reference range : 4.26 - 5.52 10*6/?L. The reference range was not used to interpret this result as normal/abnormal . HGB (test code = 16.6 g/dL 12.2-16.4 H 718-7) HCT (test code = 50.6 % 38.4-49.3 H 4544-3) MCV (test code = 88.2 fL 81.7-95.6 787-2) MCH (test code = 28.9 pg 26.1-32.7 785-6) MCHC (test code = 32.8 g/dL 31.2-35 786-4) RDW-SD (test code = 46.1 fL 38.5-51.6 46107-1) RDW-CV (test code = 14.4 % 12.1-15.4 788-0) PLT (test code = See_Comment [Automated 777-3) message] The sy stem which generated this result transmitted reference range : 150 - 328 10*3/ ?L. The reference r francisco j was not used to interpret this result as normal/abnormal . MPV (test code = 10.3 fL 9.8-13 82317-7) NRBC/100 WBC (test See_Comment [Automat ed code = [id number]) message] The system which generated this result transmitted reference range : 0.0 - 10.0 /100 WBCs. The refer ence range was not u sed to interpret th is result as normal/abnormal . NRBC x10^3 (test code <0.01 See_Comment [Auto mated = [id number]) message] The s ystem which generated this result transmitted reference range : 10*3/?L. The reference range was not used to interpret this result as normal/abnormal . GRAN MAT (NEUT) % 67.1 % (test code = 770-8) IMM GRAN % (test code 0.40 % = 5405690702) LYMPH % (test code = 22.9 % 736-9) MONO % (test code = 8.8 % 5905-5) EOS % (test code = 0.1 % 713-8) BASO % (test code = 0.7 % 706-2) GRAN MAT x10^3(ANC) 5.62 10*3/uL 1.99-6.95 (test code = 9372865332) IMM GRAN x10^3 (test 0.03 10*3/uL 0-0.06 code = 3183436702) LYMPH x10^3 (test code 1.92 10*3/uL 1.09-3.23 = 731-0) MONO x10^3 (test code 0.74 10*3/uL 0.36-1.02 = 742-7) EOS x10^3 (test code = <0.03 0.06-0.53 L 711-2) BASO x10^3 (test code 0.06 10*3/uL 0.01-0.09 = 704-7) Lab Interpretation Abnormal (test code = 20143-5) [facility] [id number] 22:18:43 No acute intracranial abnormality. No acute fracture or traumatic malalignment of the cervical spine. Preliminary Report Dictated by Resident: Abram Beasley MD., have reviewed this study and agree with theabove report.CT HEAD WO CONTRAST, CT CERVICAL SPINE WO CONTRAST HISTORY: Head trauma, minor, GCS>=13, high clinical risk, initial exam Headtrauma, headache COMPARISON: None TECHNIQUE: ?Noncontrast CT imaging of the head and cervical spine wasperformed and coronal andsagittal reconstructions were obtained andreviewed. FINDINGS: HEAD:The ventricles and cerebral sulciare normal in caliber and configuration.No hydrocephalus, midline shift or pathological extra- axial fluidcollection is present. The basal cisterns are unremarkable. There is no acute intracranial hemorrhage or significant mass effect. Noparenchymal attenuation abnormality. The vyas-white matter differentiationis preserved. The mastoid air cells and paranasal air sinuses are clear. The calvariumand central skull base are unremarkable. CERVICAL SPINE: The cervical curvature is normal. The vertebral bodies are normal in heightand in normal alignment. No facet fracture or subluxation is present. Thecraniocervical junction is intact. The prevertebral soft tissues areunremarkable. The visualized cervical soft tissues and visualized lung apices areunremarkable. [facility], Radiant Results Inft User - 09/13/2020 4:19 PM CSTCT HEAD WO CONTRAST, CT CERVICAL SPINE WO CONTRASTHISTORY: Head trauma, minor, GCS>=13, high clinical risk, initial exam Headtrauma, headache COMPARISON: NoneTECHNIQUE: Noncontrast CT imaging of the head and cervical spine wasperformed and coronal and sagittal reconstructions were obta sridhar andreviewed.FINDINGS:HEAD:The ventricles and cerebral sulci are normal in caliber and configuration.No hydrocephalus, midline shift or pathological extra- axial fluidcollection is present. The basal cisterns are unremarkable.There is no acute intracranial hemorrhage or significant mass effect. Noparenchymal attenuation abnormality. The vyas-white matter differentiationis preserved.The mastoid aircells and paranasal air sinuses are clear. The calvariumand central skull base are unremarkable.CERVICAL SPINE:The cervical curvature is normal. The vertebral bodies are normal in heightand in normal alignment. No facet fracture or subluxation is present. Thecraniocervical junction is intact. The preve rtebral soft tissues areunremarkable.The visualized cervical soft tissues and visualized lung apicesareunremarkable.IMPRESSIONNo acute intracranial abnormality.No acute fracture or traumatic malalignment of the cervical spine.Preliminary Report Dictated by Resident: Abram Torrez MD., have reviewed this study and agree with theabove report. [facility] W/O [id number] 22:18:43 No acute intracranial abnormality. No acute fracture or traumatic malalignment of the cervical spine. Preliminary Report Dictated by Resident: Abram Beasley MD., have reviewed this study and agree with theabove report.CT HEAD WO CONTRAST, CT CERVICAL SPINE WO CONTRAST HISTORY: Head trauma, minor, GCS>=13, high clinical risk, initial exam Headtrauma, headache COMPARISON: None TECHNIQUE: ?Noncontrast CT imaging of the head and cervical spine wasperformed and coronal andsagittal reconstructions were obtained andreviewed. FINDINGS: HEAD:The ventricles and cerebral sulciare normal in caliber and configuration.No hydrocephalus, midline shift or pathological extra-axial fluidcollection is present. The basal cisterns are unremarkable. There is no acute intracranial hemorrhage or significant mass effect. Noparenchymal attenuation abnormality. The vyas-white matter differe ntiationis preserved. The mastoid air cells and paranasal air sinuses are clear. The calvariumand central skull base are unremarkable. CERVICAL SPINE: The cervical curvature is normal. The vertebral bodies are normal in heightand in normal alignment. No facet fracture or subluxation is present. Thecraniocervical junction is intact. The prevertebral soft tissues areunremarkable. The visualized cervical soft tissues and visualized lung apices areunremarkable. [facility], Radiant Results Inft User - 09/13/2020 4:19 PM CSTCT HEAD WO CONTRAST, CT CERVICAL SPINE WO CONTRASTHISTORY: Head trauma, minor, GCS>=13, high clinical risk, initial exam Headtrauma, headache COMPARISON: NoneTECHNIQUE: Noncontrast CT imaging of the head and cervical spine wasperformed and coronal and sagittal reconstructions were obtained andreviewed.FINDINGS:HEAD:The ventricles and cerebral sulci are normal in caliber and configuration.No hydrocephalus, midline shift or pathological extra-axial fluidcollection is present. The basalcisterns are unremarkable.There is no acute intracranial hemorrhage or significant mass effect. Noparenchymal attenuation abnormality. The vyas-white matter differentiationis preserved.The mastoid air cells and paranasal air sinuses are clear. The calvariumand central skull base are unremarkable.CERVICAL SPINE:The cervical curvature is normal. The vertebral bodies are normal in heightand in normal alignment. No facet fracture or subluxation is present. Thecraniocervical junction is intact. The prevertebral soft tissues areunremarkable.The visualized cervical soft tissues and visualized lung apices areunremarkable.IMPRESSIONNo acute intracranial abnormality.No acute fracture or traumatic malalignment of the cervical spine.Preliminary Report Dictated by Resident: Abram Torrez MD., have reviewed this study and agree with theabove report.[facility]Tr[facility] medical centermesha [id number] 22:15:00 Test Item Value Reference Range Interpretation Comments TROPONIN I (test 0.018 ng/mL See_Comment [Automated code = [id number]) message] The system which generated this result transmitted reference range : <=0.034. The reference range was not used to interpret this result as normal/abnormal . RICCARDO (test code = Equal or Less than RICCARDO) 0.034 ng/ml---Normal ?Note: Cardiac troponin begins to rise 3-4 hours after the onset of ischemia. Repeat in 4-6 hours if the sample was drawn within 3-4 hours of the onset of the symptom and found normal. Between 0.035 and 0.120 ng/mL--- Borderline. Questionable myocardial injury or necrosis ? ?Note: Serial measurement may be necessary to confirm or exclude the diagnosis of myocardial injury or necrosis; Clinical correlation (symptoms, EKGs, imaging studies, and others) required; Repeat in 4-6 hours if clinically indicated. ? Equal or Higher than 0.121 ng/mL---Abnormal. Myocardial Injury or Necrosis Likely ? Biotin has been reported to cause a negative bias, interpret results relative to patient's use of biotin. ? Lab Interpretation Normal (test code = 10840-6) [facility]"
[2023-05-04] MEDS ORDERED: HYDROMORPHONE HCL 0.5 MG/0.5 ML INJ ONE ×2 (20:56→23:47)
[2023-05-04] MEDS ORDERED: ONDANSETRON 4 MG/2 ML VIAL ONE (20:56)
[2023-05-04 21:09] LABS: Absolute Lymphocytes (CBC) 2.4 K/uL (0.7-4.9); Hematocrit 40.7 % (39.6-49.0); Lymphocytes % 37.1 % (15.3-44.8); MCV 86.6 fL (80-100); MPV 8.4 fL (7.6-11.3); Platelets 215 thou/uL (152-406)
[2023-05-04 21:13] LABS: Protime INR 1.07
[2023-05-04 21:17] LABS: Albumin 3.7 g/dL (3.4-5.0); Bilirubin Total 0.4 mg/dL (0.2-1.0); Potassium 3.6 mEq/L (3.5-5.1); Protein, Total 7.3 g/dL (6.4-8.2)
[2023-05-04] MEDS ORDERED: PROMETHAZINE INJ 25 MG/ML AMP ONE (21:21)
--- NOTE | 2023-05-04 21:59 | RAD REPORT ---
EXAM DESCRIPTION: CTAbdomen Pelvis W Contrast - 05/04/2023 9:49 pm CLINICAL HISTORY: Abdominal pain. rectal bleeding;Abd pain COMPARISON: No comparisons TECHNIQUE: Biphasic CT imaging of the abdomen and pelvis was performed with 100 ml non-ionic IV cont rast. All CT scans are performed using dose optimization technique as appropriate and may include automated exposure control or mA/KV adjustment according to patient size. FINDINGS: The lung bases are clear.Cystectomy clips. The liver, spleen, pancreas, adrenal glands and kidneys are within normal limits. Punctate calculus i nferior left kidney. No bowel obstruction, free air, free fluid or abscess. The appendix is normal. No evidence of signi ficant lymphadenopathy. Postoperative findings lumbosacral spine. IMPRESSION: No acute intra-abdominal or pelvic finding.
--- NOTE | 2023-05-04 22:48 | ER ---
Nurse's Notes [facility] Name: Edgar Childs Age: 43 yrs Sex: Male : 1980 Arrival Date: 05/04/2023 Time: 19:57 Bed 5 Private MD: Diagnosis: Rectal bleeding;Dizziness and giddiness;Muscle weakness (generalized) Presentation: 05/04 20:15 Chief complaint: Patient states: RECTAL BLEEDING x2 WK. Coronavirus screen: At this bp time, the client does not indicate any symptoms associated with coronavirus-19. Ebola Screen: No symptoms or risks identified at this time. Initial Sepsis Screen: Does the patient meet any 2 criteria? No. Patient's initial sepsis screen is negative. Does the patient have a suspected source of infection? No. Patient's initial sepsis screen is negative. Risk Assessment: Do you want to hurt yourself or someone else? Patient reports no desire to harm self or others. Onset of symptoms is unknown. 20:15 Method Of Arrival: Wheelchair bp 20:15 Acuity: ASAF 3 bp Triage Assessment: 20:16 General: Appears distressed, uncomfortable, Behavior is cooperative, appropriate for bp age, anxious. Pain: Complains of pain in buttocks. Historical: - Allergies: 20:16 No Known Allergies; bp - PMHx: 20:16 SALOME'S ESOPHAGUS; Gastroesophageal reflux disease; PTSD; bp - Immunization history:: Adult Immunizations up to date. - Social history:: Smoking status: Patient denies any tobacco usage or history of. - Family history:: not pertinent. - Hospitalizations: : No recent hospitalization is reported. Screenin:28 [facility] ED Fall Risk Assessment (Adult) History of falling in the last 3 months, me1 including since admission No falls in past 3 months (0 pts) Confusion or Disorientation No (0 pts) Intoxicated or Sedated No (0 pts) Impaired Gait No (0 pts) Mobility Assist Device Used No (0 pt) Altered Elimination No (0 pt) Score/Fall Risk Level 0 - 2 = Low Risk. Abuse screen: Denies threats or abuse. Nutritional screening: No deficits noted. Tuberculosis screening: No symptoms or risk factors identified. Assessment: 20:28 General: Appears uncomfortable, well groomed, well developed, well nourished, Behavior me1 is calm, cooperative, appropriate for age, Reports rectal bleeding x2 weeks that has worsened recently. 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 Pain: Complains of pain in rectum Pain radiates to left low back Pain currently is 10 out of 10 on a pain scale. Quality of pain is described as sharp, stabbing, Pain began suddenly, 1 hour ago. Is continuous. Neuro: Level of Consciousness is awake, alert, obeys commands, Oriented to person, place, time, situation, Appropriate for age. Cardiovascular: Capillary refill < 3 seconds Patient's skin is warm and dry. pale.. Respiratory: Airway is patent Respiratory effort is even, unlabored, Respiratory pattern is regular, symmetrical. GI: Reports rectal bleeding, bloody stool, since about 2 weeks ago. 22:00 Reassessment: Patient appears in no apparent distress at this time. Patient and/or jb4 family updated on plan of care and expected duration. Pain level reassessed. Patient is alert, oriented x 3, equal unlabored respirations, skin warm/dry/pink. 23:15 Reassessment: Patient appears in no apparent distress at this time. Patient and/or jb4 family updated on plan of care and expected duration. Pain level reassessed. Patient is alert, oriented x 3, equal unlabored respirations, skin warm/dry/pink. Vital Signs: 20:15 BP 128 / 80; Pulse 93; Resp 16; Temp 98.1; Pulse Ox 99% ; bp 20:28 BP 105 / 76; Pulse 85; Resp 17; Pulse Ox 97% on R/A; me1 21:59 BP 122 / 68; Pulse 76; Resp 16; Pulse Ox 95% on R/A; me1 23:15 BP 103 / 72; Pulse 82; Resp 16; Pulse Ox 98% on R/A; jb4 ED Course: 20:02 Patient arrived in ED. jj6 20:12 Sandip Jc MD is Attending Physician. rn 20:16 Triage completed. bp 20:16 Arm band placed on. bp 20:27 Dior Sales, RN is Primary Nurse. me1 20:28 Patient has correct armband on for positive identification. Bed in low position. Call me1 light in reach. Side rails up X2. Provided Education on: POC. Verbalized understanding.. 20:28 No provider procedures requiring assistance completed. me1 20:55 CBC with Diff Sent. jb4 20:55 CMP Sent. jb4 20:55 Lipase Sent. jb4 20:55 Ptt, Activated Sent. jb4 20:55 Protime (+inr) Sent. jb4 20:55 Type And Screen Sent. jb4 21:51 CT Abd/Pelvis - IV Contrast Only In Process Unspecified. EDMS 22:46 Otis Perry MD is Hospitalizing Provider. rn 05/05 00:19 Patient admitted, IV remains in place. jb4 Administered Medications: 05/04 20:41 CANCELLED (Duplicate Order): morphine IVP or IV 2 mg IVP once over 4 mins rn 20:55 Drug: Ondansetron IVP 4 mg Route: IVP; Site: right antecubital; jb4 20:55 Drug: HYDROmorphone IVP 0.5 mg Route: IVP; Site: right antecubital; jb4 21:14 Drug: Promethazine IVP 12.5 mg Route: IVP; Site: right antecubital; jb4 23:11 Drug: Rocephin IV 1 grams Route: IV; Rate: calculated rate; Site: right antecubital; jb4 23:11 Drug: metroNIDAZOLE IVPB 500 mg Volume: 100 ml; Route: IVPB; Rate: 200 ml/hr; Infused jb4 Over: 30 mins; Site: right antecubital; 23:11 Not Given (Physician Discretion): HYDROmorphone IVP 0.5 mg IVP once jb4 23:39 Drug: HYDROmorphone IVP 0.5 mg Route: IVP; Site: right antecubital; jb4 Medication: 20:28 VIS not applicable for this client. me1 Outcome: 22:47 Decision to Hospitalize by Provider. rn 05/05 00:18 Admitted to Med/surg accompanied by tech, via wheelchair, room 223, with chart, Report jb4 called to BRYANT Cool Condition: stable Discharge instructions given to patient, family, Instructed on the need for admit, Demonstrated understanding of instructions. 00:20 Patient left the ED. jb4 Signatures: Dispatcher [employer] EDDE Sandip Jc MD MD rn Bryson, James, RN RN jb4 Freedom Martinez RN RN bp Jeffries, Jennifer jj6 Dior Sales RN RN me1 Corrections: (The following items were deleted from the chart) 05/04 20:34 20:28 : claudia tnSukh
--- NOTE | 2023-05-04 22:48 | EDPHYS ---
Physician Documentation [facility] Name: Edgar Childs Age: 43 yrs Sex: Male : 1980 Arrival Date: 05/04/2023 Time: 19:57 Bed 5 Private MD: ED Physician Sandip Jc HPI: 05/04 20:44 This 43 yrs old Male presents to ER via Wheelchair with complaints of Rectal Bleeding. rn 20:44 The patient presents to the emergency department with bleeding from the rectum/anus. rn Onset: The symptoms/episode began/occurred 2 week(s) ago. Context: the patient has no known special context relating to the rectal area complaint(s). Modifying factors: The symptoms are alleviated by nothing, The symptoms are aggravated by bowel movement, sitting position. Associate signs and symptoms: Pertinent positives: abdominal pain in the left lower quadrant, lower GI bleeding, Pertinent negatives: fever. The patient has not experienced similar symptoms in the past. The patient has been recently seen by a physician:. Patient reports rectal bleeding that was intermittent for 2 weeks but got worse over the last couple days. Associated with lower abdominal pain. Reports subjective fever and chills. No trauma. Blood is red/maroon and mixed with the stool. Does not take blood thinners.. Historical: - Allergies: 20:16 No Known Allergies; bp - PMHx: 20:16 SALOME'S ESOPHAGUS; Gastroesophageal reflux disease; PTSD; bp - Immunization history:: Adult Immunizations up to date. - Social history:: Smoking status: Patient denies any tobacco usage or history of. - Family history:: not pertinent. - Hospitalizations: : No recent hospitalization is reported. ROS: 20:44 Constitutional: Negative for fever, chills, and weight loss, Cardiovascular: Negative rn for chest pain, palpitations, and edema, Respiratory: Negative for shortness of breath, cough, wheezing, and pleuritic chest pain, Abdomen/GI: Positive for abdominal pain and rectal bleeding Back: Negative for injury and pain, MS/Extremity: Negative for injury and deformity, Skin: Negative for injury, rash, and discoloration, Neuro: Positive for generalized weakness and malaise Exam: 20:44 Constitutional: This is a well developed, well nourished patient who is awake, alert, rn appears uncomfortable, sitting in wheelchair Head/Face: Normocephalic, atraumatic. Eyes: Pale conjunctiva not noted Cardiovascular: Regular rate and rhythm. No pulse deficits. Respiratory: No increased work of breathing, no retractions or nasal flaring. Abdomen/GI: Soft, mild tenderness left lower quadrant and left upper quadrant, no rebound Skin: Warm, dry, no cyanosis MS/ Extremity: Pulses equal, no cyanosis. Neurovascular intact. Full, normal range of motion. Equal circumference. Neuro: Awake and alert, GCS 15 Vital Signs: 20:15 BP 128 / 80; Pulse 93; Resp 16; Temp 98.1; Pulse Ox 99% ; bp 20:28 BP 105 / 76; Pulse 85; Resp 17; Pulse Ox 97% on R/A; me1 21:59 BP 122 / 68; Pulse 76; Resp 16; Pulse Ox 95% on R/A; me1 23:15 BP 103 / 72; Pulse 82; Resp 16; Pulse Ox 98% on R/A; jb4 MDM: 20:12 Patient medically screened. rn 22:44 Differential diagnosis: Internal hemorrhoid, AVM, diverticulitis, diverticulosis, colon rn cancer, colitis. Data reviewed: vital signs, nurses notes, lab test result(s), radiologic studies, CT scan, and as a result, I will discharge patient. Consideration of Admission/Observation Escalation of care including admission/observation considered. Counseling: I had a detailed discussion with the patient and/or guardian regarding the historical points, exam findings, and any diagnostic results supporting the discharge/admit diagnosis, lab results, radiology results. Response to treatment: There is no appreciated change of the patient's symptoms at this time. ED course: Patient reports still having pain despite 2 doses of Dilaudid and still nauseated despite 2 doses of Phenergan and 1 dose of Zofran. Pain out of proportion to physical exam findings and work-up thus far. Spoke to him about possible discharge home and patient and are concerned about going home with ongoing bleeding. Has appointment to follow-up with Dr. Logan on May 26. Patient still passing blood will admit to hospitalist service for GI consultation in the morning and serial H\T\H to see if he drops.. 05/04 20:19 Order name: CBC with Diff; Complete Time: 21:33 rn 05/04 20:19 Order name: CMP; Complete Time: 21:33 rn 05/04 20:19 Order name: Lipase; Complete Time: 21:33 rn 05/04 20:19 Order name: Protime (+inr); Complete Time: 21:33 rn 05/04 20:19 Order name: Ptt, Activated; Complete Time: 21:33 rn 05/04 20:19 Order name: Type And Screen; Complete Time: 22:43 rn 05/04 20:19 Order name: CT Abd/Pelvis - IV Contrast Only; Complete Time: 22:05 rn 05/04 20:19 Order name: IV Saline Lock; Complete Time: 20:55 rn 05/04 20:19 Order name: Labs collected and sent; Complete Time: 20:55 rn Administered Medications: 20:41 CANCELLED (Duplicate Order): morphine IVP or IV 2 mg IVP once over 4 mins rn 20:55 Drug: Ondansetron IVP 4 mg Route: IVP; Site: right antecubital; jb4 20:55 Drug: HYDROmorphone IVP 0.5 mg Route: IVP; Site: right antecubital; jb4 21:14 Drug: Promethazine IVP 12.5 mg Route: IVP; Site: right antecubital; jb4 23:11 Drug: Rocephin IV 1 grams Route: IV; Rate: calculated rate; Site: right antecubital; jb4 23:11 Drug: metroNIDAZOLE IVPB 500 mg Volume: 100 ml; Route: IVPB; Rate: 200 ml/hr; Infused jb4 Over: 30 mins; Site: right antecubital; 23:11 Not Given (Physician Discretion): HYDROmorphone IVP 0.5 mg IVP once jb4 23:39 Drug: HYDROmorphone IVP 0.5 mg Route: IVP; Site: right antecubital; jb4 Disposition Summary: 05/04/23 22:47 Hospitalization Ordered Hospitalization Status: Observation rn Provider: Otis Perry rn Location: Telemetry/[facility]Sur (observation) rn Condition: Stable rn Problem: new rn Symptoms: are unchanged rn Bed/Room Type: Standard rn Room Assignment: 223(05/04/23 23:44) cg Diagnosis - Rectal bleeding rn - Dizziness and giddiness rn - Muscle weakness (generalized) rn Forms: - Medication Reconciliation Form rn - SBAR form rn - Leadership Thank You Letter rn Signatures: Dispatcher [employer] Sandip Barth MD MD rn Attema, Lee, AIR BAG CURER-C AIR BAG [id number] Nayeli Bishop RN RN cg Ariel Perry RN RN jb4 Freedom Martinez, RN RN bp Corrections: (The following items were deleted from the chart) 20:41 20:19 morphine IVP or IV 2 mg IVP once over 4 mins ordered. rn rn 23:44 22:47 rn
[2023-05-04] MEDS ORDERED: METRONIDAZOLE 500mg IVPB 500 MG/100 ML BAG IV ONE (23:05)
[2023-05-04] MEDS ORDERED: CEFTRIAXONE 1000 MG/VIAL ONE (23:05)
[2023-05-05] MEDS ORDERED: ONDANSETRON 4 MG/2 ML VIAL IV PRN (00:10)
[2023-05-05] MEDS ORDERED: HYDROMORPHONE HCL 0.5 MG/0.5 ML INJ IV PRN (00:10)
--- NOTE | 2023-05-05 00:28 | P.HP ---
Certification for Inpatient Patient admitted to: Observation With expected LOS: <2 Midnights Patient will require the following post-hospital care: None Practitioner: I am a practitioner with admitting privileges, knowledge of patient current condition, hospital course, and medical plan of care. Services: Services provided to patient in accordance with Admission requirements found in Title 42 Section 412.3 of the Code of Federal Regulations Patient History Date of Service: 05/05/23 Reason for admission: Hematochezia History of Present Illness: 43-year-old male with history of Marks's esophagus, GERD, PTSD, depression presents to the emergency department with chief complaint of bright red blood per rectum. He reports that has been having red/maroon stool for the past 2 weeks, recently started passing clots the past couple of days and today developed left flank pain. For the reason he presented to the emergency department. He was evaluated here in the emergency department his labs are significant for normal hemoglobin/hematocrit CBC completely unremarkable creatinine 1.[address] abdomen pelvis with IV contrast negative for acute fi ndings. No obvious external hemorrhoids on exam patient with significant abdominal pain still passing bright red blood per rectum, ED provider wishes to admit under observation for hematochezia. Allergies No Known Allergies Allergy (Verified 05/05/23 00:23) - Past Medical/Surgical History -: Marks's esophagus, GERD -: PTSD, depression -: Pyloric stenosis surgery -: Back fusion -: Cholecystectomy Psychosocial/ Personal History: Patient works in EMS, lives at home with his family - Family History Family History: Reviewed- Non-Contributory - Social History Smoking Status: Never smoker Alcohol use: No CD- Drugs: No Caffeine use: Yes Place of Residence: Home Review of Systems 10-point ROS is otherwise unremarkable Gastrointestinal: Abdominal Pain, Hematochezia, As per HPI Physical Examination - Physical Exam General: Alert, In no apparent distress, Oriented x3 HEENT: Atraumatic, PERRLA, Mucous membr. moist/pink, EOMI, Sclerae nonicteric Neck: Supple, 2+ carotid pulse no bruit, No LAD, Without JVD or thyroid abnormality Respiratory: Clear to auscultation bilaterally, Normal air movement Cardiovascular: Regular rate/rhythm, Normal S1 S2 Capillary refill: <2 Seconds Gastrointestinal: Normal bowel sounds, Tenderness (Mild left lower quadrant, suprapubic abdominal tenderness) Musculoskeletal: No tenderness Integumentary: No rashes Neurological: Normal gait, Normal speech, Normal strength at 5/5 x4 extr, Normal tone, Normal affect Lymphatics: No axilla or inguinal lymphadenopathy - Studies Laboratory Data (last 24 hrs) 05/04/23 05/04/23 05/04/23 20:45 20:45 20:45 WBC 6.40 Hgb 14.1 Hct 40.7 Plt Count 215 PT 11.8 INR 1.07 APTT 32.6 Sodium 140 Potassium 3.6 BUN 21 H Creatinine 1.57 H Glucose 83 Total Bilirubin 0.4 AST 17 ALT 46 Alkaline Phosphatase 85 Lipase 56 Assessment and Plan - Plan Assessment: Hematochezia, abdominal tenderness Marks's esophagus, GERD PTSD, depression Plan: Hematochezia, abdominal tenderness N.p.o. after midnight, as needed pain medication Trend hemoglobin/hematocrit GI consult. CT negative for acute findings no obvious external hemorrhoid. Marks's esophagus, GERD Continue pantoprazole PTSD, depression Continue home medications. DVT PPX: SCD Code status: Full Discharge Plan: Home Plan to discharge in: 24 Hours - Advance Directives Does patient have a Living Will: No Does patient have a Durable POA for Healthcare: No - Code Status/Comfort Care Code Status Assessed: Yes (Full code) Critical Care: No Time Spent Managing Pts Care (In Minutes): 55
[2023-05-05 00:33] VITALS: O2SAT 98
[2023-05-05 00:44] VITALS: BMI 32.3
[2023-05-05 05:10] LABS: Absolute Lymphocytes (CBC) 3.3 K/uL (0.7-4.9); Hematocrit 39.5 % (39.6-49.0); Lymphocytes % 44.7 % (15.3-44.8); MCV 86.4 fL (80-100); MPV 8.2 fL (7.6-11.3); Platelets 205 thou/uL (152-406); RBC Red Blood Cell Count 4.58 M/uL (4.33-5.43)
[2023-05-05 05:18] LABS: Potassium 3.7 mEq/L (3.5-5.1)
[2023-05-05] MEDS ORDERED: NA CHLORIDE 0.9% 500 ML IV ONE (05:26)
[2023-05-05] MEDS ORDERED: KCL 20 MEQ/100 mL IVPB 20 MEQ/100 ML BAG IV SCH (05:30)
[2023-05-05] MEDS ORDERED: NA CHLORIDE 0.9% 1,000 ML ONE (05:36)
[2023-05-05] MEDS ORDERED: Ringers Lactate 1,000 ML IV SCH (07:00)
[2023-05-05 09:36] LABS: Blood Morphology Comment NOT SEEN (NOT SEEN); Platelet Estimate ADEQ
[2023-05-05 09:49] VITALS: BP 105/58; TEMP 97.6
--- NOTE | 2023-05-05 10:34 | P.DS ---
Admission Date: 05/04/23 Discharge Date: 05/05/23 Disposition: ROUTINE DISCHARGE Discharge Condition: GOOD Reason for Admission: Hematochezia Hospital Course: DIAGNOSES: # Intermittent Hematochezia x 1 year # Possible Acute Kidney Injury - improved # Gastroesophageal Reflux Disease complicated by Marks's Esophagus # Punctate Left Renal Nephrolith # Post-Traumatic Stress Disorder # Depression HOSPITAL COURSE: Mr. Edgar Childs is a 43 year old male with a past medical history significant for gastroesophageal reflux disease complicated by Marks's esophagus, post- traumatic stress disorder, and depression who was admitted to the [facility] on 05/04/2023 for hematochezia. He was admitted to the Medicine service. Upon further evaluation, his hemoglobin was 14.1. His CT abdomen/pelvis revealed, "no acute intra-abdominal or pelvic finding." He reported intermittent hematochezia for one year, with progressive worsening over the last two weeks. He reported significant gastrointestinal family history, including his mother with colitis at age 18 years and his maternal aunt passing away at age 38 years from colon cancer. Gastroenterology was consulted and his case was reviewed with Dr. Borjas. Given the chronicity of his symptoms as well as his stable hemoglobin count, he recommended discharging him directly to clinic today. The plan is for a colonoscopy to be scheduled next week. Mr. Childs and his were in agreement with this plan. On 05/05/2023, he was seen on morning rounds and deemed medically stable for discharge. He was discharged with instructions to schedule follow-up appointments with his PCP (EDWIN Mike) and with Gastroenterology (Dr. Borjas). He and his were given the opportunity to ask questions and reported no f urther questions. Furthermore, all questions were answered to the best of my ability. A copy of this discharge summary will be sent to the above providers to facilitate continuity of care. Today, I personally spent 25 minutes on his case, of which greater than 50% of the time was spent in patient education, counseling, and coordination of care as described above. Vital Signs/Physical Exam: Temp Pulse Resp BP Pulse Ox 97.6 F 68 18 105/58 L 96 05/05/23 08:00 05/05/23 08:00 05/05/23 09:36 05/05/23 08:00 05/05/23 08:00 General: Alert, In no apparent distress, Oriented x3 HEENT: Atraumatic, Mucous membr. moist/pink, Sclerae nonicteric Neck: JVD not distended Respiratory: Clear to auscultation bilaterally, Normal air movement Cardiovascular: No edema, Regular rate/rhythm, Normal S1 S2, No gallops, No rubs, No murmurs Gastrointestinal: Normal bowel sounds, Soft and benign, Non-distended, No tenderness, No rebound, No guarding Musculoskeletal: No clubbing Integumentary: No rashes Neurological: Normal speech, Normal affect Laboratory Data at Discharge: WBC 7.40 thou/uL (4.3-10.9) 05/05/23 04:44 Hgb 13.6 g/dL (13.6-17.9) 05/05/23 04:44 Hct 39.5 % (39.6-49.0) L 05/05/23 04:44 Plt Count 205 thou/uL (152-406) 05/05/23 04:44 PT 11.8 SECONDS (9.5-12.5) 05/04/23 20:45 INR 1.07 05/04/23 20:45 APTT 32.6 SECONDS (24.3-36.9) 05/04/23 20:45 Sodium 139 mEq/L (136-145) 05/05/23 04:44 Potassium 3.7 mEq/L (3.5-5.1) 05/05/23 04:44 BUN 19 mg/dL (7-18) H 05/05/23 04:44 Creatinine 1.30 mg/dL (0.70-1.30) 05/05/23 04:44 Glucose 96 mg/dL (74-106) 05/05/23 04:44 Total Bilirubin 0.4 mg/dL (0.2-1.0) 05/04/23 20:45 AST 17 U/L (15-37) 05/04/23 20:45 ALT 46 U/L (16-61) 05/04/23 20:45 Alkaline Phosphatase 85 U/L (45-117) 05/04/23 20:45 Lipase 56 U/L (13-75) 05/04/23 20:45 Home Medications: ARIPiprazole [Abilify*] 5 mg PO DAILY 05/05/23 Eszopiclone 2 mg PO BEDTIME 05/05/23 Levothyroxine [Synthroid*] 25 mcg PO DAILY 05/05/23 Pantoprazole [Protonix Tab*] 40 mg PO DAILY 05/05/23 Trazodone HCl 100 mg PO BEDTIME PRN 05/05/23 Venlafaxine HCl [Venlafaxine HCl ER] 75 mg PO DAILY 05/05/23 clonazePAM [Clonazepam] 0.5 mg PO BEDTIME 05/05/23 Physician Discharge Instructions: 1. Please call and schedule a follow-up appointment with your PCP (EDWIN Mike) in 3-5 days 2. Please go directly to Dr. Borjas's office (Gastroenterology) for a walk-in appointment. He will be expecting you. Diet: AHA Activity: Ad jayne Followup: Roseline Mike NP [Primary Care Provider] - Logan Borjas MD [OUTSIDE PHYSICIAN] - (PROCEED DIRECTLY TO DR BORJAS'S OFFICE, HE IS EXPECTING YOU) Time spent managing pt's care (in minutes): 25
== END 2023-05-05 11:24 | disposition home or self-care (01) ==
LOC: ER 19:57 → ERHOLD 23:36 → 2ND 05-05 00:03
PROVIDERS: ADMIT Internal Medicine; ATTEND Internal Medicine
DX: K92.1 Melena (principal); K21.9 Gastro-esophageal reflux disease without esophagitis; F43.10 Post-traumatic stress disorder, unspecified; F32.A Depression, unspecified; R10.9 Unspecified abdominal pain; K22.70 Barrett's esophagus without dysplasia; N20.0 Calculus of kidney
CPT/HCPCS: 85025 ×2; 80048; 36415; 86900; 86850; 85610; 86901; 85730; 83690; 80053; 74177; 96375; 96374; 99285; Q9967; J2550; J3480; J1170 ×3; J2405; J7120; J7030; J0696; G0378

== ENCOUNTER 2023-11-28 00:42 | Emergency (ER) | payer OTHER ==
[2023-11-28] MEDS ORDERED: MORPHINE 4 MG/ML SYR ONE ×2 (01:34→03:29)
[2023-11-28] MEDS ORDERED: ONDANSETRON 4 MG/2 ML VIAL ONE (01:34)
[2023-11-28] MEDS ORDERED: NA CHLORIDE 0.9% 1,000 ML ONE (01:34)
[2023-11-28] MEDS ORDERED: LORAZEPAM 1 MG TABLET ONE (02:20)
[2023-11-28 02:54] LABS: Absolute Basophils 0.1 K/uL (0-0.5); Absolute Eosinophils 0.3 K/uL (0-0.5); Absolute Neutrophil 3.6 K/uL (1.8-8.0); Basophils % 0.7 % (0-1.3); Neutrophils % 43.9 % (41.7-73.7)
[2023-11-28 02:57] LABS: Absolute Lymphocytes (CBC) 3.5 K/uL (0.7-4.9); Absolute Monocytes 0.7 K/uL (0.1-1.3); Eosinophils % 3.8 % (0-4.4); Hematocrit 45.2 % (39.6-49.0); Hemoglobin 15.4 g/dL (13.6-17.9); Lymphocytes % 42.8 % (15.3-44.8); MCH 29.3 pg (27.0-35.0); MCHC 34.1 g/dL (32.0-36.0); MCV 85.9 fL (80-100); MPV 8.3 fL (7.6-11.3); Monocytes % 8.8 % (3.3-12.3); Nucleated Red Blood Cells % 0.1 % (0-0); Platelets 198 thou/uL (152-406); RBC Red Blood Cell Count 5.26 M/uL (4.33-5.43); Red Cell Distribution Width 15.6 % (12.1-15.2)
[2023-11-28 03:03] LABS: Barbiturates NEGATIVE (NEGATIVE); Benzodiazepines NEGATIVE (NEGATIVE); Cocaine NEGATIVE (NEGATIVE); METHAMPHETAM NEGATIVE (NEGATIVE); Methadone NEGATIVE (NEGATIVE); Opiates NEGATIVE (NEGATIVE); Phencyclidine NEGATIVE (NEGATIVE); THC Cannibis POSITIVE (NEGATIVE)
[2023-11-28 03:15] LABS: Albumin 3.5 g/dL (3.4-5.0); Albumin/Globulin Ratio 0.9 (1.1-1.8); Anion Gap 7.5 mEq/L (5.0-15.0); Bilirubin Direct 0.1 mg/dL (0-0.2); Bilirubin Indirect, Calculated 0.4 mg/dL (0.2-0.8); Bilirubin Total 0.5 mg/dL (0.2-1.0); Globulin 3.9 g/dL (2.3-3.5); Potassium 3.5 mEq/L (3.5-5.1); Protein, Total 7.4 g/dL (6.4-8.2); Troponin High Sensitivity 3.5 pg/mL (<58.9)
[2023-11-28 03:27] LABS: Thyroid Stimulating Hormone 7.63 uIU/mL (0.358-3.740)
[2023-11-28] MEDS ORDERED: KETOROLAC 30 MG/ML INJ ONE (03:28)
--- NOTE | 2023-11-28 07:05 | EDPHYS ---
Physician Documentation [facility] Name: Edgar Childs Age: 43 yrs Sex: Male : 1980 Arrival Date: 11/28/2023 Time: 00:42 Bed 2 Private MD: ED Physician Milan Duckworth HPI: 11/27 00:50 This 43 yrs old Male presents to ER via Unassigned with complaints of Chest sp4 Pain - a couple of wks, Shortness Of Breath - shakiness. 00:51 Historical: Allergies: 12:44 No Known Allergies; rs5 Home Meds: 09/30 06:42 sp4 acetaminophen-codeine 300-30 mg Oral tablet 2 tabs 3 times per day for pain; pantoprazole 40 mg oral tablet, delayed release (enteric coated) 1 tab daily; trazodone 50 mg Oral tablet 1 tab every day at bedtime; prazosin 2 mg Oral capsule 2 caps every evening; venlafaxine 37.5 mg oral Tablet, Extended Release 24 hr 1 tab daily; quetiapine 50 mg oral tablet 1 tab every day at bedtime; methocarbamol 500 mg Oral tablet 1 tabs at bedtime as needed; methylphenidate HCl 5 mg Oral tablet 1 tab 2 times per day; levothyroxine 25 mcg capsule 1 cap daily; tizanidine 4 mg oral capsule 1 cap every 8 hours as needed; eszopiclone 3 mg oral tablet 1 tab every day at bedtime; cyclobenzaprine 10 mg Oral tablet 1 tab three times as day as needed; cyproheptadine 4 mg Oral tablet 1 tab every day at bedtime; meclizine 25 mg Oral tablet 1 tab three times daily as needed; hydroxyzine HCl 10 mg Oral tablet 1 tab twice daily as needed. 06:23 Patient presents with exertional and nonexertional sharp left-sided chest pains on and sp4 off for 2 weeks.. Historical: - Allergies: 01:08 No Known Allergies; bm8 - Home Meds: 01:08 acetaminophen-codeine 300-30 mg Oral tablet 2 tabs 3 times per day for Pain [Active]; bm8 cyclobenzaprine 10 mg Oral tablet 1 tab three times as day as needed [Active]; cyproheptadine 4 mg Oral tablet 1 tab every day at bedtime [Active]; eszopiclone 3 mg Oral tablet 1 tab every day at bedtime [Active]; hydroxyzine HCl 10 mg Oral tablet 1 tab twice daily as needed [Active]; levothyroxine 25 mcg capsule 1 cap daily [Active]; meclizine 25 mg Oral tablet 1 tab three times daily as needed [Active]; methocarbamol 500 mg Oral tablet 1 tabs at bedtime as needed [Active]; methylphenidate HCl 5 mg Oral tablet 1 tab 2 times per day [Active]; pantoprazole 40 mg Oral tablet 1 tab daily [Active]; prazosin 2 mg Oral capsule 2 caps every evening [Active]; quetiapine 50 mg Oral tablet 1 tab every day at bedtime [Active]; tizanidine 4 mg Oral capsule 1 cap every 8 hours as needed [Active]; trazodone 50 mg Oral tablet 1 tab every day at bedtime [Active]; venlafaxine 37.5 mg Oral Tablet 1 tab daily [Active]; - PMHx: 01:08 kimber's esophagus; Gastroesophageal reflux disease; PTSD; depression (PTSD); Bipolar bm8 disorder; Hypothyroidism; insomnia; - PSHx: 01:08 None; bm8 - Immunization history:: Adult Immunizations up to date. - Infectious Disease History:: Denies. - Social history:: Smoking status: Reported history of juuling and/or vaping. - Family history:: not pertinent. ROS: 06:23 Constitutional: Negative for fever, chills, and weight loss, positive for chest pain sp4 06:23 All other systems are negative, Exam: 06:23 Constitutional: This is a well developed, well nourished patient who is awake, alert, sp4 and in no acute distress. Head/Face: Normocephalic, atraumatic. Eyes: Pupils equal round and reactive to light, extra-ocular motions intact. Lids and lashes normal. Conjunctiva and sclera are not injected. Cornea within normal limits. Periorbital areas with no swelling, redness, or edema. ENT: Nares patent. No nasal discharge, no septal abnormalities noted. Tympanic membranes are normal and external auditory canals are clear. Oropharynx with no redness, swelling, or masses, exudates, or evidence of obstruction, uvula midline. Mucous membranes moist. Neck: Trachea midline, no thyromegaly or masses palpated, and no cervical lymphadenopathy. Supple, full range of motion without nuchal rigidity, or vertebral point tenderness. Chest/axilla: Normal chest wall appearance and motion. Nontender with no deformity. No lesions are appreciated. Cardiovascular: Regular rate and rhythm with a normal S1 and S2. No gallops, murmurs, or rubs. Normal PMI, no JVD. No pulse deficits. Respiratory: Lungs have equal breath sounds bilaterally, clear to auscultation and percussion. No rales, rhonchi or wheezes noted. No increased work of breathing, no retractions or nasal flaring. Abdomen/GI: Soft, with normal bowel sounds. No distension or tympany. No guarding or rebound. No evidence of tenderness throughout. Back: No spinal tenderness. No costovertebral tenderness. Skin: Warm, dry with normal turgor. Normal color with no rashes, no lesions, and no evidence of cellulitis. MS/ Extremity: Pulses equal, no cyanosis. Neurovascular intact. Full, normal range of motion. Neuro: Awake and alert, GCS 15, oriented to person, place, time, and situation. Cranial nerves II-XII grossly intact. Motor strength 5/5 in all extremities. Sensory grossly intact. Psych: Awake, alert, with orientation to person, place and time. Behavior, mood, and affect are within normal limits Vital Signs: 00:53 BP 121 / 80; Pulse 77; Resp 17; Temp 97.7; Pulse Ox 95% ; Weight 108.86 kg; Height 5 bm8 ft. 10 in. ; Pain 5/10; 01:52 BP 114 / 77; Pulse 70; Resp 17; Temp 98.2; Pulse Ox 94% ; Pain 4/10; bm8 02:30 BP 114 / 74; Pulse 69; Resp 16; Pulse Ox 97% on R/A; km8 03:00 BP 109 / 71; Pulse 72; Resp 16; Pulse Ox 97% on R/A; km8 03:30 BP 112 / 66; Pulse 73; Resp 16; Pulse Ox 94% on R/A; km8 04:00 BP 97 / 71; Pulse 65; Resp 16; Pulse Ox 94% on R/A; km8 04:30 BP 102 / 60; Pulse 69; Resp 16; Pulse Ox 94% on R/A; km8 06:45 BP 97 / 71; Pulse 67; Resp 17; Temp 98.2; Pulse Ox 95% ; Pain 2/10; bm8 00:53 Body Mass Index 34.44 (108.86 kg, 177.8 cm) bm8 00:53 Pain Scale: Adult bm8 01:52 Pain Scale: Adult bm8 06:45 Pain Scale: Adult bm8 [place] Coma Score: 01:52 Eye Response: spontaneous(4). Motor Response: obeys commands(6). Verbal Response: bm8 oriented(5). Total: 15. 06:23 Eye Response: spontaneous(4). Motor Response: obeys commands(6). Verbal Response: sp4 oriented(5). Total: 15. MDM: 00:49 Patient medically screened. sp4 06:17 ED course: IMPRESSION: 1. No evidence of thoracic or abdominal aortic dissection or sp4 aneurysm. No pulmonary embolus. 2. Mild wall thickening of the urinary bladder. This could be seen with cystitis. 3. Enlarged prostate. 4. Punctate nonobstructing left nephrolithiasis. 5. Small hiatal hernia. Electronically signed by: Geovanny Vigil DO 11/28/2023 04:23 AM C. 06:23 HEART Score: History: Slightly Suspicious (0), ECG: Normal (0), Age: < or = 45 years sp4 (0), Risk Factors: No Risk Factors Known (0), Troponin: < or = 1 x Normal Limit (0), Total Score = 0. Data reviewed: vital signs, nurses notes, old medical records, lab test result(s), EKG, radiologic studies, CT scan. ED course: IMPRESSION: 1. No evidence of thoracic or abdominal aortic dissection or aneurysm. No pulmonary embolus. 2. Mild wall thickening of the urinary bladder. This could be seen with cystitis. 3. Enlarged prostate. 4. Punctate non obstructing left nephrolithiasis. 5. Small hiatal hernia. Electronically signed by: Geovanny Vigil DO 11/28/2023 04:23 AM C. 07:01 Differential diagnosis: abnormal EKG, acute pericarditis, anxiety, coronary artery sp4 disease chest wall pain, congestive heart failure. ED course: Patient has negative troponin x 2. No sign of acute ACS. Patient stable for discharge home with referral to geospatial developer. Incidentally there is a displaced spinal screw. - Bones: Posterior andrew and screw fixation at L5/S1. Left L5 interpedicular screw enters the L4/5 mild endplate spondylosis. No definite acute osseous abnormality. Disc space. L5/S1 discectomy. Patient was advised to obtain nonemergent MRI of the L-spine and see neurosurgeon for follow-up. . 11/27 00:49 Order name: Basic Metabolic Panel; Complete Time: 03:27 11/27 00:49 Order name: CBC with Diff; Complete Time: 03:27 11/27 00:49 Order name: LFT's; Complete Time: 03:27 11/27 00:49 Order name: Magnesium; Complete Time: 03:27 11/27 00:49 Order name: NT PRO-BNP; Complete Time: 03:27 11/27 00:49 Order name: PT-INR; Complete Time: 03:27 11/27 00:49 Order name: Troponin HS; Complete Time: 03:27 11/27 00:52 Order name: TSH; Complete Time: 06:15 11/27 00:52 Order name: T4 Free; Complete Time: 06:15 11/27 00:52 Order name: Alcohol Level; Complete Time: 06:15 11/27 00:52 Order name: Urine Drug Screen; Complete Time: 03:27 11/27 06:15 Order name: Troponin High Sensitivity; Complete Time: 06:56 11/27 00:49 Order name: XRAY Chest (1 view) 11/27 01:25 Order name: CT Aorta for Dissection 11/27 00:49 Order name: EKG; Complete Time: 00:50 11/27 00:49 Order name: Cardiac monitoring; Complete Time: 01:07 11/27 00:49 Order name: EKG - Nurse/Tech; Complete Time: 01:07 11/27 00:49 Order name: IV Saline Lock; Complete Time: 01:07 11/27 00:49 Order name: Labs collected and sent; Complete Time: 01:07 11/27 00:49 Order name: O2 Per Protocol; Complete Time: 01:07 11/27 00:49 Order name: O2 Sat Monitoring; Complete Time: 01:07 sp4 Administered Medications: 01:52 Drug: morphine IVP or IV 4 mg IVP once over 4 mins Route: IVP; Infused Over: 4 mins; bm8 Site: left wrist; 03:39 Follow up: Response: No adverse reaction bm8 01:52 Drug: Ondansetron IVP 4 mg IVP once; over 2 minutes Route: IVP; Site: left wrist; bm8 03:39 Follow up: Response: No adverse reaction bm8 01:52 Drug: NS 0.9% IV 1000 ml IV at 1 bolus Per protocol; 1000 mL bolus Route: IV; Rate: 1 bm8 bolus; Site: left wrist; 03:39 Follow up: Response: No adverse reaction; IV Status: Completed infusion; IV Intake: bm8 1000ml 03:38 Drug: Ketorolac IVP 30 mg IVP once Route: IVP; Site: left wrist; bm8 04:49 Follow up: Response: No adverse reaction bm8 03:38 Drug: morphine IVP or IV 4 mg IVP once over 4 mins Route: IVP; Infused Over: 4 mins; bm8 Site: left wrist; 04:49 Follow up: Response: No adverse reaction bm8 03:39 Not Given (Patient Refused): lorazepam1 mg PO once bm8 Disposition Summary: 11/28/23 07:04 Discharge Ordered Problem: new sp4 Symptoms: have improved sp4 Condition: Stable sp4 Diagnosis - Chest pain, unspecified sp4 - Noncardiac chest pain, displaced interpeduncular spinal hardware screw. sp4 Followup: sp4 - With: Medhat Guadarrama MD - When: 7 - 10 days - Reason: Recheck today's complaints Discharge Instructions: - Discharge Summary Sheet sp4 - Nonspecific Chest Pain, Adult, [id number] sp4 Forms: - Patient Portal Instructions sp4 Signatures: Dispatcher [employer] Milan Allen MD MD sp4 Tom [address], RN RN bm8 Corrections: (The following items were deleted from the chart) 00:50 00:50 BASIC METABOLIC PANEL+C.LAB.BRZ ordered. EDMS EDMS 00:50 00:50 CBC+H.LAB.BRZ ordered. EDMS EDMS 00:50 00:50 HEPATIC FUNCTION+C.LAB.BRZ ordered. EDMS EDMS 00:50 00:50 MAGNESIUM+C.LAB.BRZ ordered. EDMS EDMS 00:50 00:50 PROBNP+C.LAB.BRZ ordered. EDMS EDMS 00:50 00:50 PROTIME (+INR)+COAG.LAB.BRZ ordered. EDMS EDMS 00:50 00:50 Troponin High Sensitivity+C.LAB.BRZ ordered. EDMS EDMS 00:52 00:52 ETHANOL+C.LAB.BRZ ordered. EDMS EDMS 00:52 00:52 URINE DRUG SCREEN+UC.LAB.BRZ ordered. EDMS EDMS
--- NOTE | 2023-11-28 07:05 | ER ---
Nurse's Notes [facility] Name: Edgar Childs Age: 43 yrs Sex: Male : 1980 Arrival Date: 11/28/2023 Time: 00:42 Bed 2 Private MD: Diagnosis: Chest pain, unspecified;Noncardiac chest pain, displaced interpeduncular spinal hardware screw. Presentation: 11/27 00:53 Chief complaint: Patient states: I have been having chest pain on and off ffor a few bm8 weeks. tonight it woke me up. it was sharp and felt like someone sitting on my chest. Coronavirus screen: At this time, the client does not indicate any symptoms associated with coronavirus-19. Ebola Screen: Patient negative for fever greater than or equal to 101.5 degrees Fahrenheit, and additional compatible Ebola Virus Disease symptoms Patient denies exposure to infectious person. Patient denies travel to an Ebola-affected area in the 21 days before illness onset. No symptoms or risks identified at this time. Initial Sepsis Screen: Does the patient meet any 2 criteria? No. Patient's initial sepsis screen is negative. Does the patient have a suspected source of infection? No. Patient's initial sepsis screen is negative. Risk Assessment: Do you want to hurt yourself or someone else? Patient reports no desire to harm self or others. Risk Assessment: Do you want to hurt yourself or someone else? Patient reports no desire to harm self or others. Onset of symptoms was November 27, 2023 at 21:00. 00:53 Method Of Arrival: Ambulatory bm8 00:53 Acuity: ASAF 2 bm8 Triage Assessment: 00:53 General: Appears in no apparent distress. comfortable, Behavior is calm, cooperative, bm8 appropriate for age. Pain: Complains of pain in chest Pain does not radiate. Pain currently is 5 out of 10 on a pain scale. EENT: No deficits noted. No signs and/or symptoms were reported regarding the EENT system. Neuro: Level of Consciousness is awake, alert, obeys commands, Oriented to person, place, time, situation, Appropriate for age. Cardiovascular: Reports chest pain, shortness of breath, for a few weeks that comes and goes Heart tones S1 S2 present Capillary refill < 3 seconds Patient's skin is warm and dry. Rhythm is regular. Respiratory: Airway is patent Respiratory effort is even, unlabored, Respiratory pattern is regular, symmetrical, Breath sounds are clear bilaterally. GI: No deficits noted. No signs and/or symptoms were reported involving the gastrointestinal system. : No deficits noted. No signs and/or symptoms were reported regarding the genitourinary system. Derm: No deficits noted. No signs and/or symptoms reported regarding the dermatologic system. Musculoskeletal: No deficits noted. No signs and/or symptoms reported regarding the musculoskeletal system. Historical: - Allergies: : No Known Allergies; bm8 - Home Meds: : acetaminophen-codeine 300-30 mg Oral tablet 2 tabs 3 times per day for Pain [Active]; bm8 cyclobenzaprine 10 mg Oral tablet 1 tab three times as day as needed [Active]; cyproheptadine 4 mg Oral tablet 1 tab every day at bedtime [Active]; eszopiclone 3 mg Oral tablet 1 tab every day at bedtime [Active]; hydroxyzine HCl 10 mg Oral tablet 1 tab twice daily as needed [Active]; levothyroxine 25 mcg capsule 1 cap daily [Active]; meclizine 25 mg Oral tablet 1 tab three times daily as needed [Active]; methocarbamol 500 mg Oral tablet 1 tabs at bedtime as needed [Active]; methylphenidate HCl 5 mg Oral tablet 1 tab 2 times per day [Active]; pantoprazole 40 mg Oral tablet 1 tab daily [Active]; prazosin 2 mg Oral capsule 2 caps every evening [Active]; quetiapine 50 mg Oral tablet 1 tab every day at bedtime [Active]; tizanidine 4 mg Oral capsule 1 cap every 8 hours as needed [Active]; trazodone 50 mg Oral tablet 1 tab every day at bedtime [Active]; venlafaxine 37.5 mg Oral Tablet 1 tab daily [Active]; - PMHx: 01:08 kimber's esophagus; Gastroesophageal reflux disease; PTSD; depression (PTSD); Bipolar bm8 disorder; Hypothyroidism; insomnia; - PSHx: 01:08 None; bm8 - Immunization history:: Adult Immunizations up to date. - Infectious Disease History:: Denies. - Social history:: Smoking status: Reported history of juuling and/or vaping. - Family history:: not pertinent. Screenin:[facility] Fall Risk Assessment (Adult) History of falling in the last 3 months, bm8 including since admission No falls in past 3 months (0 pts) Confusion or Disorientation No (0 pts) Intoxicated or Sedated No (0 pts) Impaired Gait No (0 pts) Mobility Assist Device Used No (0 pt) Altered Elimination No (0 pt) Score/Fall Risk Level 0 - 2 = Low Risk Oriented to surroundings, Maintained a safe environment, Educated pt \T\ family on fall prevention, incl call for assistance when getting out of bed. Abuse screen: Denies threats or abuse. Nutritional screening: No deficits noted. Tuberculosis screening: No symptoms or risk factors identified. Assessment: :52 Reassessment: Patient appears in no apparent distress at this time. Patient and/or bm8 family updated on plan of care and expected duration. Pain level reassessed. Patient is alert, oriented x 3, equal unlabored respirations, skin warm/dry/pink. Patient states symptoms have improved. General: Appears in no apparent distress. comfortable, Behavior is calm, cooperative, appropriate for age. Pain: Complains of pain in chest Pain does not radiate. Pain currently is 4 out of 10 on a pain scale. Quality of pain is described as pressure, Pain began 3 hours ago. Neuro: Level of Consciousness is awake, alert, obeys commands, Oriented to person, place, time, situation, Appropriate for age. Cardiovascular: Reports chest pain, shortness of breath, Heart tones S1 S2 present Capillary refill < 3 seconds Patient's skin is warm and dry. Rhythm is regular. Respiratory: Airway is patent Respiratory effort is even, unlabored, Respiratory pattern is regular, symmetrical, Breath sounds are clear bilaterally. GI: No deficits noted. No signs and/or symptoms were reported involving the gastrointestinal system. : No deficits noted. No signs and/or symptoms were reported regarding the genitourinary system. EENT: No deficits noted. No signs and/or symptoms were reported regarding the EENT system. Derm: No deficits noted. No signs and/or symptoms reported regarding the dermatologic system. Musculoskeletal: No deficits noted. No signs and/or symptoms reported regarding the musculoskeletal system. 03:08 Reassessment: Patient appears in no apparent distress at this time. No changes from km8 previously documented assessment. Patient and/or family updated on plan of care and expected duration. Pain level reassessed. Patient is alert, oriented x 3, equal unlabored respirations, skin warm/dry/pink. 03:40 Reassessment: Patient appears in no apparent distress at this time. Patient and/or bm8 family updated on plan of care and expected duration. Pain level reassessed. Patient is alert, oriented x 3, equal unlabored respirations, skin warm/dry/pink. Reassessment: Provider made aware of pt's c/o chest pain and wrote for new ordered that were carried out. currently awaiting to see effectiveness of medications. General: Appears in no apparent distress. comfortable, Behavior is calm, cooperative, appropriate for age. Pain: Complains of pain in chest Pain does not radiate. Pain currently is 5 out of 10 on a pain scale. Quality of pain is described as pressure. Neuro: Level of Consciousness is awake, alert, obeys commands, Oriented to. Cardiovascular: Reports chest pain, Heart tones S1 S2 present Capillary refill < 3 seconds Patient's skin is warm and dry. Rhythm is regular. Respiratory: Airway is patent Respiratory effort is even, unlabored, Respiratory pattern is regular, symmetrical. GI: No deficits noted. No signs and/or symptoms were reported involving the gastrointestinal system. : No deficits noted. No signs and/or symptoms were reported regarding the genitourinary system. EENT: No deficits noted. No signs and/or symptoms were reported regarding the EENT system. Derm: No deficits noted. No signs and/or symptoms reported regarding the dermatologic system. Musculoskeletal: No deficits noted. No signs and/or symptoms reported regarding the musculoskeletal system. 04:48 Reassessment: Patient appears in no apparent distress at this time. Patient and/or bm8 family updated on plan of care and expected duration. Pain level reassessed. Patient is alert, oriented x 3, equal unlabored respirations, skin warm/dry/pink. Patient denies pain at this time. Patient states feeling better. Patient states symptoms have improved. 06:45 Reassessment: Patient appears in no apparent distress at this time. No changes from bm8 previously documented assessment. Patient and/or family updated on plan of care and expected duration. Pain level reassessed. Patient is alert, oriented x 3, equal unlabored respirations, skin warm/dry/pink. Patient states feeling better. Patient states symptoms have improved. Vital Signs: 00:53 BP 121 / 80; Pulse 77; Resp 17; Temp 97.7; Pulse Ox 95% ; Weight 108.86 kg; Height 5 bm8 ft. 10 in. ; Pain 5/10; 01:52 BP 114 / 77; Pulse 70; Resp 17; Temp 98.2; Pulse Ox 94% ; Pain 4/10; bm8 02:30 BP 114 / 74; Pulse 69; Resp 16; Pulse Ox 97% on R/A; km8 03:00 BP 109 / 71; Pulse 72; Resp 16; Pulse Ox 97% on R/A; km8 03:30 BP 112 / 66; Pulse 73; Resp 16; Pulse Ox 94% on R/A; km8 04:00 BP 97 / 71; Pulse 65; Resp 16; Pulse Ox 94% on R/A; km8 04:30 BP 102 / 60; Pulse 69; Resp 16; Pulse Ox 94% on R/A; km8 06:45 BP 97 / 71; Pulse 67; Resp 17; Temp 98.2; Pulse Ox 95% ; Pain 2/10; bm8 00:53 Body Mass Index 34.44 (108.86 kg, 177.8 cm) bm8 00:53 Pain Scale: Adult bm8 01:52 Pain Scale: Adult bm8 06:45 Pain Scale: Adult bm8 Kina Coma Score: 01:52 Eye Response: spontaneous(4). Motor Response: obeys commands(6). Verbal Response: bm8 oriented(5). Total: 15. 06:23 Eye Response: spontaneous(4). Motor Response: obeys commands(6). Verbal Response: sp4 oriented(5). Total: 15. ED Course: 00:45 Patient arrived in ED. ra3 00:49 Milan Duckworth MD is Attending Physician. sp4 00:53 Arm band placed on left wrist. EKG completed in triage. Results shown to . Labs bm8 ordered per protocol. Drawn by ED staff. 01:[address], RN is Primary Nurse. bm8 01:07 Inserted saline lock: 20 gauge in left wrist, using aseptic technique. Blood collected. rv1 01:07 Basic Metabolic Panel Sent. rv1 01:07 CBC with Diff Sent. rv1 01:07 LFT's Sent. rv1 01:07 Magnesium Sent. rv1 01:07 PT-INR Sent. rv1 01:07 Troponin HS Sent. rv1 01:07 TSH Sent. rv1 01:07 T4 Free Sent. rv1 01:07 Alcohol Level Sent. rv1 01:08 Triage completed. bm8 01:42 XRAY Chest (1 view) In Process Unspecified. EDMS 01:52 No provider procedures requiring assistance completed. O2 via pt on room air. bm8 01:52 Patient has correct armband on for positive identification. Placed in gown. Bed in low bm8 position. Call light in reach. Side rails up X 1. Adult w/ patient. Provided Education on:. surveillance monitor on. Pulse ox on. NIBP on. Door closed. Noise minimized. Visitors limited. Lights dimmed. Warm blanket given. Head of bed elevated. 03:42 CT Aorta for Dissection In Process Unspecified. EDMS 06:22 Troponin High Sensitivity Sent. km8 06:30 Troponin High Sensitivity Sent. rv1 06:53 Primary Nurse role handed off by [facility] RN bm8 06:[address] RN is Primary Nurse. bm8 07:03 Medhat Guadarrama MD is Referral Physician. sp4 07:03 Report given to kaylen daniels. bm8 07:11 IV discontinued, intact, bleeding controlled, No redness/swelling at site. Pressure ko1 dressing applied. Administered Medications: 01:52 Drug: morphine IVP or IV 4 mg IVP once over 4 mins Route: IVP; Infused Over: 4 mins; bm8 Site: left wrist; 03:39 Follow up: Response: No adverse reaction bm8 01:52 Drug: Ondansetron IVP 4 mg IVP once; over 2 minutes Route: IVP; Site: left wrist; bm8 03:39 Follow up: Response: No adverse reaction bm8 01:52 Drug: NS 0.9% IV 1000 ml IV at 1 bolus Per protocol; 1000 mL bolus Route: IV; Rate: 1 bm8 bolus; Site: left wrist; 03:39 Follow up: Response: No adverse reaction; IV Status: Completed infusion; IV Intake: bm8 1000ml 03:38 Drug: Ketorolac IVP 30 mg IVP once Route: IVP; Site: left wrist; bm8 04:49 Follow up: Response: No adverse reaction bm8 03:38 Drug: morphine IVP or IV 4 mg IVP once over 4 mins Route: IVP; Infused Over: 4 mins; bm8 Site: left wrist; 04:49 Follow up: Response: No adverse reaction bm8 03:39 Not Given (Patient Refused): lorazepam1 mg PO once bm8 Medication: 01:52 VIS not applicable for this client. bm8 Intake: 03:39 IV: 1000ml; Total: 1000ml. bm8 Outcome: 07:04 Discharge ordered by MD. gutierrez 07:11 Discharged to home ambulatory, ko1 07:11 Condition: stable 07:11 Discharge instructions given to patient, Instructed on discharge instructions, follow up and referral plans. Demonstrated understanding of instructions, follow-up care, 07:17 Patient left the ED. kc6 Signatures: Dispatcher [employer] EDDebbie Pal, RN RN kc6 Hayde Marroquin, RN RN ko1 Marika Wang Sergey, MD MD spMartha Ibarra, RN RN km8 Pascale German ra3 Tom St RN RN bm8
[2023-11-28 09:41] VITALS: BP 97/71; TEMP 98.2; O2SAT 95
--- NOTE | 2023-11-28 11:13 | RAD REPORT ---
EXAM DESCRIPTION: CT - Angio Aorta For Dissection - 11/28/2023 7:09 am CLINICAL HISTORY: Chest pain COMPARISON: 05/04/2023 TECHNIQUE: CTA of the chest, abdomen, and pelvis obtained following IV administration of iodinated c ontrast. 3-D/MIP reformatted images available. This exam was performed according to our departmental dose-optimization program, which includes automated exposure control, adjustment of the mA and/or kV according to patient size and/or use of iterative reconstruction technique. FINDINGS: Chest: Pulmonary arteries: Contrast bolus is adequate.No filling defects identified in the pulmonary arterie s to suggest pulmonary embolus. Thyroid: No abnormalities of the visualized thyroid. Great Vessels: Great vessels have normal anatomic configuration. Thoracic Aorta: No abnormalities of the thoracic aorta identified. No evidence of thoracic aortic dis section. Heart: No cardiomegaly, significant pericardial effusion, or coronary artery atherosclerosis Lymph Nodes: No enlarged mediastinal lymph nodes identified. Esophagus: Small hiatal hernia. Other: No additional findings. Lungs: Minimal dependent atelectasis. No confluent airspace consolidation. Pleura: No pleural effusion or pneumothorax. Trachea/Airways: No abnormalities of the visualized trachea or airways. Abdomen: Liver: The liver has normal size and density. Gallbladder: Prior cholecystectomy. Spleen, Pancreas, and Adrenal Glands: The spleen, pancreas, and adrenal glands are unremarkable. Kidneys: No hydronephrosis or obstructing ureteral calculus. Punctate nonobstructing left nephrol ithiasis. Vasculature: All caliber abdominal aorta with straight line flow into the common iliac, external annalisa c, and common femoral arteries. The visceral and renal arteries are widely patent. IVC is normal ca liber. Stomach: Small hiatal hernia. Other: No free intraperitoneal air. No free fluid or lymphadenopathy. Pelvis: Bladder: Mild wall thickening of the urinary bladder. Bowel: No dilated loops of large or small bowel. Moderate amount of stool. Appendix: Normal appendix. Pelvis: Enlarged prostate. Bones: Posterior andrew and screw fixation at L5/S1. Left L5 interpedicular screw enters the L4/5 mild e ndplate spondylosis. No definite acute osseous abnormality. Disc space. L5/S1 discectomy. IMPRESSION: 1. No evidence of thoracic or abdominal aortic dissection or aneurysm. No pulmonary em bolus. 2. Mild wall thickening of the urinary bladder. This could be seen with cystitis. 3. Enlarged prostate. 4. Punctate nonobstructing left nephrolithiasis. 5. Small hiatal hernia. Electronically signed by: Geovanny Vigil DO 11/28/2023 04:23 AM CDT M Due to temporary technical issues with the PACS/Fluency reporting system, reports are being signed by the in house radiologists without review as a courtesy to insure prompt reporting. The interpreting radiologist is fully responsible for the content of the report.
--- NOTE | 2023-11-28 11:29 | RAD REPORT ---
EXAM DESCRIPTION: RAD - Chest Single View - 11/28/2023 1:40 am CLINICAL HISTORY: CHEST PAIN COMPARISON: None. FINDINGS: Single frontal radiograph view of the chest. Cardiomediastinal silhouette: Normal size and contour. Lungs: No consolidation, pneumothorax, or pleural effusion. Bones: No acute osseous abnormality. Leads overlie the chest. Upper abdomen: No abnormality identified. IMPRESSION: 1. No acute pulmonary process identified. Electronically signed by: Geovanny Vigil DO 11/28/2023 01:58 AM CDT M Due to temporary technical issues with the PACS/Fluency reporting system, reports are being signed by the in house radiologists without review as a courtesy to insure prompt reporting. The interpreting radiologist is fully responsible for the content of the report.
--- NOTE | 2023-11-28 16:15 | EKG ---
Test Date: 2023-11-28 Test Time: 00:50:53 Leg Man: RV MEASUREMENT RESULTS: Intervals: Rate: 70 AR: 172 QRSD: 80 QT: 390 QTc: 421 [place]: P: 32 AR: 172 QRS: 32 T: 42 INTERPRETIVE STATEMENTS: Normal sinus rhythm Normal ECG Compared to ECG 09/29/2023 13:28:19 No significant changes Electronically Signed On 11-28-23 16:14:01 CDT by Medhat Guadarrama
== END 2023-11-28 07:17 | disposition home or self-care (01) ==
LOC: ER 00:42
DX: R07.89 Other chest pain (principal); T84.296A Other mechanical complication of internal fixation device of vertebrae, initial encounter
CPT/HCPCS: 96361; 93005; 85025; 80048; 36415; 83735; 85610; 80076; 84443; 84484 ×2; 84439; 83880; 80307; 71275; 74175; 71045; 96375; 96374; 99285; 82077; Q9967; J2405; J7030

== ENCOUNTER 2024-12-07 22:56 | Emergency (ER) | payer BC, OTHER ==
[2024-12-08] MEDS ORDERED: KETOROLAC 30 MG/ML INJ ONE (00:08)
[2024-12-08] MEDS ORDERED: MORPHINE 4 MG/ML SYR ONE ×2 (00:11→03:10)
[2024-12-08] MEDS ORDERED: MORPHINE 2 MG/ML SYR ONE (00:11)
[2024-12-08] MEDS ORDERED: ONDANSETRON 4 MG/2 ML VIAL ONE (00:11)
[2024-12-08 00:29] LABS: Absolute Basophils 0.1 K/uL (0-0.5); Absolute Eosinophils 0.4 K/uL (0-0.5); Absolute Monocytes 1.5 K/uL (0.1-1.3); Basophils % 0.9 % (0-1.3); Eosinophils % 4.4 % (0-4.4); Hematocrit 51.4 % (39.6-49.0); Hemoglobin 17.3 g/dL (13.6-17.9); Lymphocytes % 22.7 % (15.3-44.8); MCH 29.5 pg (27.0-35.0); MCHC 33.7 g/dL (32.0-36.0); MCV 87.6 fL (80-100); MPV 9.7 fL (7.6-11.3); Monocytes % 16.6 % (3.3-12.3); Neutrophils % 55.4 % (41.7-73.7); Nucleated Red Blood Cells % 0.1 % (0-0); Platelets 132 thou/uL (152-406); RBC Red Blood Cell Count 5.87 M/uL (4.33-5.43); Red Cell Distribution Width 16.4 % (12.1-15.2)
[2024-12-08 00:47] LABS: Albumin 3.2 g/dL (3.4-5.0); Albumin/Globulin Ratio 0.8 (1.1-1.8); Anion Gap 9.8 mEq/L (5.0-15.0); Bilirubin Total 0.7 mg/dL (0.2-1.0); C-Reactive Protein 7.57 mg/L (<3.00); Globulin 3.8 g/dL (2.3-3.5); Potassium 3.8 mEq/L (3.5-5.1); Specific Gravity > 1.030 (1.005-1.030); Urine Bilirubin NEGATIVE (Negative); Urine Blood Negative (Negative); Urine Clarity Clear (Clear); Urine Color Light-Yellow (Yellow); Urine Glucose 4+ (Over) (Negative); Urine Ketones TRACE (Negative); Urine Microscopic Reflex YN NO UMIC; Urine Nitrite NEGATIVE (Negative); Urine Protein NEGATIVE (Negative); Urine Urobilinogen 1+ (Normal)
[2024-12-08] MEDS ORDERED: NA CHLORIDE 0.9% 1,000 ML ONE ×3 (00:51→04:30)
[2024-12-08] MEDS ORDERED: INSULIN REGULAR (HUMAN) 100 UNIT/ML ONE (01:42)
--- NOTE | 2024-12-08 02:18 | RAD REPORT ---
EXAM: US Scrotum CLINICAL HISTORY: The patient is 44 years old and is Male; testicular pain TECHNIQUE: Real-time ultrasound of the scrotum with color Doppler and image documentation. COMPARISON: No relevant prior studies available. FINDINGS: RIGHT TESTICLE: 3.4 x 1.9 x 2.3 cm. No mass. There is normal blood flow in the testicle, withou t evidence of testicular torsion. LEFT TESTICLE: 3.6 x 1.9 x 2.6 cm. No mass. There is normal blood flow in the testicle, without evidence of testicular torsion. EPIDIDYMIDES: Unremarkable. SCROTUM: Small bilateral hydroceles are present. IMPRESSION: No evidence of torsion. Electronically signed by: Idania Jackson MD 12/08/2024 02:11 AM CDT Due to temporary technical issues with the PACS/[employer] reporting system, reports are being sign ed by the in-house radiologist without review as a courtesy to ensure prompt reporting the interpreting rad iologist is fully responsible for the content of the report. Transcribed Date/Time: 12/08/2024 2:18 AM
[2024-12-08] MEDS ORDERED: LORazepam 2 MG/ML VIAL ONE (03:09)
[2024-12-08] MEDS ORDERED: METOCLOPRAMIDE 10 MG/2mL INJ ONE (03:10)
--- NOTE | 2024-12-08 03:19 | ER ---
Nurse's Notes [facility] Name: Edgar Childs Age: 44 yrs Sex: Male : 1980 Arrival Date: 12/07/2024 Time: 22:56 Bed 20 Private MD: Diagnosis: Nonspecific reactive hepatitis;Acute hepatitis, acute pancreatitis, diabetes type II uncontrolled with hyperglycemia Presentation: 12/07 23:19 Chief complaint: Patient states: bilateral flank and testicular pain, unable to empty lg3 bladder, pain when urinating X2 months. worsened today. Coronavirus screen: Client denies travel out of the [place] in the last 14 days. At this time, the client does not indicate any symptoms associated with coronavirus-19. Ebola Screen: No symptoms or risks identified at this time. Initial Sepsis Screen: Does the patient meet any 2 criteria? No. Patient's initial sepsis screen is negative. Does the patient have a suspected source of infection? No. Patient's initial sepsis screen is negative. Risk Assessment: Do you want to hurt yourself or someone else? Patient reports no desire to harm self or others. Onset of symptoms was December 07, 2024. 23:19 Method Of Arrival: Ambulatory lg3 23:19 Acuity: ASAF 3 lg3 Triage Assessment: 23:23 General: Appears in no apparent distress. uncomfortable, Behavior is calm, cooperative. lg3 Pain: Complains of pain in abdomen and scrotum, bilateral flank. EENT: No deficits noted. No signs and/or symptoms were reported regarding the EENT system. Neuro: No deficits noted. Cruz Agitation-Sedation Scale (RASS): 0 - Alert and Calm Level of Consciousness is awake, alert, obeys commands, Oriented to person, place, time, situation. Cardiovascular: No deficits noted. Denies chest pain, shortness of breath, Capillary refill < 3 seconds Clubbing of nail beds is absent JVD is absent Patient's skin is warm and dry. Respiratory: No deficits noted. Airway is patent Respiratory effort is even, unlabored, Respiratory pattern is regular, symmetrical. GI: Abdomen is round non-distended, Reports lower abdominal pain, nausea. : Reports cramping, inability to void, pain in suprapubic area testicle. Derm: No deficits noted. No signs and/or symptoms reported regarding the dermatologic system. Skin is intact, is healthy with good turgor, Skin is dry, Skin is normal, Skin temperature is warm. Musculoskeletal: No deficits noted. Circulation, motion, and sensation intact. Range of motion: intact in all extremities. Historical: - Allergies: 23:23 Ceclor; lg3 - PMHx: 23:23 kimber's esophagus; Bipolar disorder; Depression (PTSD); Gastroesophageal reflux lg3 disease; Hypothyroidism; insomnia; PTSD; - PSHx: 23:23 right shoulder (PTSD); right knee (PTSD); spinal fusion (PTSD); Cholecystectomy; lg3 Tonsillectomy; - Immunization history:: Adult Immunizations up to date. - Infectious Disease History:: Denies. - Social history:: Smoking status: Patient denies any tobacco usage or history of. Patient uses alcohol, occasionally. Patient/guardian denies using street drugs. - Family history:: not pertinent. Screenin:47 [facility] ED Fall Risk Assessment (Adult) History of falling in the last 3 months, kj2 including since admission No falls in past 3 months (0 pts) Confusion or Disorientation No (0 pts) Intoxicated or Sedated No (0 pts) Impaired Gait No (0 pts) Mobility Assist Device Used No (0 pt) Altered Elimination No (0 pt) Score/Fall Risk Level 0 - 2 = Low Risk Maintained a safe environment, Hourly rounding (assess needs \T\ fall precautionary measures) done. Abuse screen: Denies threats or abuse. Denies injuries from another. Nutritional screening: No deficits noted. Tuberculosis screening: No symptoms or risk factors identified. Assessment: 23:45 General: Appears uncomfortable, Behavior is cooperative. Pain: Complains of pain in kj2 bilat flank Pain currently is 10 out of 10 on a pain scale. Neuro: Level of Consciousness is awake, alert, obeys commands, Oriented to person, place, time, situation. Cardiovascular: Patient's skin is warm and dry. Respiratory: Airway is patent Respiratory effort is even, unlabored. GI: No signs and/or symptoms were reported involving the gastrointestinal system. : Reports burning with urination, since x 2 months inability to void, only drops of urine when trying to urinate. 12/08 01:11 Reassessment: Patient appears in no apparent distress at this time. No changes from lg3 previously documented assessment. Patient and/or family updated on plan of care and expected duration. Pain level reassessed. Patient is alert, oriented x 3, equal unlabored respirations, skin warm/dry/pink. 02:45 Reassessment: Patient appears in no apparent distress at this time. Patient and/or lg3 family updated on plan of care and expected duration. Pain level reassessed. Patient is alert, oriented x 3, equal unlabored respirations, skin warm/dry/pink. Patient states feeling better. 06:26 Reassessment: Patient appears in no apparent distress at this time. Patient and/or lg3 family updated on plan of care and expected duration. Pain level reassessed. Patient is alert, oriented x 3, equal unlabored respirations, skin warm/dry/pink. Patient states feeling better. Patient states symptoms have improved. Vital Signs: 12/07 23:19 BP 155 / 96; Pulse 106; Resp 16 S; Temp 98.2(O); Pulse Ox 100% on R/A; Weight 108.86 kg lg3 (R); Height 5 ft. 10 in. (R); Pain 8/10; 12/08 01:12 BP 133 / 75; Pulse 87; Resp 16 S; Pulse Ox 96% on R/A; Pain 6/10; lg3 03:35 BP 127 / 63; Pulse 103; Resp 16 S; Pulse Ox 94% on R/A; lg3 06:26 BP 125 / 71; Pulse 94; Resp 16 S; Pulse Ox 96% on R/A; lg3 12/07 23:19 Body Mass Index 34.44 (108.86 kg, 177.8 cm) lg3 12/07 23:19 Pain Scale: Adult lg3 12/08 01:12 Pain Scale: Adult lg3 [place] Coma Score: 12/09 04:04 Eye Response: spontaneous(4). Motor Response: obeys commands(6). Verbal Response: sp4 oriented(5). Total: 15. ED Course: 12/07 23:10 Patient arrived in ED. jj6 23:23 Triage completed. lg3 23:23 Milan Duckworth MD is Attending Physician. sp4 23:23 Arm band placed on right wrist. lg3 23:43 Otilia Niño RN is Primary Nurse. kj2 23:48 Patient has correct armband on for positive identification. Bed in low position. Call kj2 light in reach. Adult w/ patient. Provided Education on: call light. 23:48 No provider procedures requiring assistance completed. kj2 12/08 00:16 CBC with Diff Sent. hw 00:16 CMP Sent. hw 00:16 Lipase Sent. hw 00:16 Urinalysis w/ reflexes Sent. hw 00:16 Inserted saline lock: 20 gauge in right antecubital area, using aseptic technique. hw Blood collected. Flushed with 10 mL NS. 01:39 US Scrotum Testicles In Process Unspecified. EDMS 02:31 CT Abd/Pelvis - Without Contrast In Process Unspecified. EDMS 03:39 Transfer initiated \T\ 0339. rv1 04:58 Pt accepted to [facility] by Dr Greenwood \T\ 0431, Admin approval \T\ 0452, Pt going to room 1860, rv 1 report called to [phone]. 06:27 Patient transferred, IV remains in place. lg3 Administered Medications: 00:19 Drug: Ondansetron IVP 4 mg IVP once; over 2 minutes Route: IVP; Site: right antecubital;lg3 02:44 Follow up: Response: No adverse reaction; Marked relief of symptoms lg3 00:19 Drug: morphine IVP or IV 2 mg IVP once over 4 mins Route: IVP; Infused Over: 4 mins; lg3 Site: right antecubital; 02:44 Follow up: Response: No adverse reaction; Marked relief of symptoms lg3 00:19 Drug: Ketorolac IVP 30 mg IVP once Route: IVP; Site: right antecubital; lg3 02:44 Follow up: Response: No adverse reaction; Marked relief of symptoms lg3 00:20 Drug: Ondansetron IVP 4 mg IVP once; over 2 minutes Route: IVP; Site: right antecubital;lg3 02:44 Follow up: Response: No adverse reaction; Marked relief of symptoms lg3 00:20 Drug: morphine IVP or IV 4 mg IVP once over 4 mins Route: IVP; Infused Over: 4 mins; lg3 Site: right antecubital; 02:45 Follow up: Response: No adverse reaction; Marked relief of symptoms lg3 01:11 Drug: NS 0.9% IV 1000 ml IV at 1 bolus Per protocol; to be given as a bolus over 60 lg3 minutes Route: IV; Rate: 1 bolus; Site: right antecubital; 02:44 Follow up: Response: No adverse reaction; IV Status: Completed infusion; IV Intake: lg3 1000ml 01:11 Drug: NS 0.9% IV 1000 ml IV at 1 bolus Per protocol; to be given as a bolus over 60 lg3 minutes Route: IV; Rate: 1 bolus; Site: right antecubital; 02:44 Follow up: Response: No adverse reaction; IV Status: Completed infusion; IV Intake: lg3 1000ml 02:27 Drug: Insulin Regular Human IVP 10 units IVP once {Co-Signature: kd4 (Isidro Orantes lg3 RN).} Route: IVP; Site: right antecubital; 06:25 Follow up: Response: No adverse reaction lg3 03:22 Drug: Ativan IVP 1 mg IVP once Route: IVP; Site: right antecubital; lg3 06:25 Follow up: Response: No adverse reaction lg3 03:23 Drug: morphine IVP or IV 4 mg IVP once over 4 mins Route: IVP; Infused Over: 4 mins; lg3 Site: right antecubital; 06:25 Follow up: Response: No adverse reaction; Marked relief of symptoms lg3 03:23 Drug: metoCLOPramide IVP 10 mg IVP once; over 1 to 2 minutes Route: IVP; Site: right lg3 antecubital; 06:25 Follow up: Response: No adverse reaction lg3 05:31 Drug: NS 0.9% IV 1000 ml IV at 125 ml/hr once; to be given as a bolus over 60 minutes lg3 Route: IV; Rate: 125 ml/hr; Site: right antecubital; 06:24 Follow up: IV Status: Infusion continued upon transfer; IV Intake: 125ml lg3 06:24 Drug: fentaNYL (PF) IVP 100 mcg IVP once Route: IVP; Site: right antecubital; lg3 06:24 Follow up: Response: No adverse reaction; Medication Administered at Departure lg3 Medication: 12/07 23:48 VIS not applicable for this client. kj2 Intake: 12/08 02:44 IV: 1000ml; Total: 1000ml. lg3 02:44 IV: 1000ml; Total: 2000ml. lg3 06:24 IV: 125ml; Total: 2125ml. lg3 Outcome: 03:18 ER care complete, transfer ordered by . sp4 06:26 Transferred by ground EMS to [facility], [facility], Transfer form completed. lg3 06:26 Condition: stable 06:26 Instructed on the need for transfer, Demonstrated understanding of instructions, 06:27 Patient left the ED. lg3 Signatures: Dispatcher [employer] EDEvita Leroy, RN RN lg3 Lilly Minor Rebecca rvMilan Israel MD MD sp4 Otilia Niño RN RN jose2 Tisha Dang Karim RN kd4
--- NOTE | 2024-12-08 03:19 | EDPHYS ---
Physician Documentation [facility] Name: Edgar Childs Age: 44 yrs Sex: Male : 1980 Arrival Date: 12/07/2024 Time: 22:56 Bed 20 Private MD: ED Physician Milan Duckworth HPI: 12/07 23:23 This 44 yrs old Male presents to ER via Ambulatory with complaints of Urinary sp4 Retention, Back Pain. 12/09 04:03 44-year-old male presents with complaint of upper abdominal pain, back pain and urinary sp4 retention.. Historical: - Allergies: 12/07 23:23 Ceclor; lg3 - PMHx: 23:23 kimber's esophagus; Bipolar disorder; Depression (PTSD); Gastroesophageal reflux lg3 disease; Hypothyroidism; insomnia; PTSD; - PSHx: 23:23 right shoulder (PTSD); right knee (PTSD); spinal fusion (PTSD); Cholecystectomy; lg3 Tonsillectomy; - Immunization history:: Adult Immunizations up to date. - Infectious Disease History:: Denies. - Social history:: Smoking status: Patient denies any tobacco usage or history of. Patient uses alcohol, occasionally. Patient/guardian denies using street drugs. - Family history:: not pertinent. ROS: 12/09 04:03 Constitutional: Negative for fever, chills, and weight loss, positive abdominal pain sp4 positive back pain positive urinary retention All other systems are negative, Exam: 04:04 Constitutional: This is a well developed, well nourished patient who is awake, alert, sp4 and in no acute distress. Head/Face: Normocephalic, atraumatic. Eyes: Pupils equal round and reactive to light, extra-ocular motions intact. Lids and lashes normal. Conjunctiva and sclera are not injected. Cornea within normal limits. Periorbital areas with no swelling, redness, or edema. ENT: Nares patent. No nasal discharge, no septal abnormalities noted. Tympanic membranes are normal and external auditory canals are clear. Oropharynx with no redness, swelling, or masses, exudates, or evidence of obstruction, uvula midline. Mucous membranes moist. Neck: Trachea midline, no thyromegaly or masses palpated, and no cervical lymphadenopathy. Supple, full range of motion without nuchal rigidity, or vertebral point tenderness. Chest/axilla: Normal chest wall appearance and motion. Nontender with no deformity. No lesions are appreciated. Cardiovascular: Regular rate and rhythm with a normal S1 and S2. No gallops, murmurs, or rubs. Normal PMI, no JVD. No pulse deficits. Respiratory: Lungs have equal breath sounds bilaterally, clear to auscultation and percussion. No rales, rhonchi or wheezes noted. No increased work of breathing, no retractions or nasal flaring. Abdomen/GI: Soft, with normal bowel sounds. No distension or tympany. Diffusely tender abdomen with involuntary guarding Back: No spinal tenderness. No costovertebral tenderness. Skin: Warm, dry with normal turgor. Normal color with no rashes, no lesions, and no evidence of cellulitis. MS/ Extremity: Pulses equal, no cyanosis. Neurovascular intact. Full, normal range of motion. Neuro: Awake and alert, GCS 15, oriented to person, place, time, and situation. Cranial nerves II-XII grossly intact. Motor strength 5/5 in all extremities. Sensory grossly intact. Psych: Awake, alert, with orientation to person, place and time. Behavior, mood, and affect are within normal limits Vital Signs: 12/07 23:19 BP 155 / 96; Pulse 106; Resp 16 S; Temp 98.2(O); Pulse Ox 100% on R/A; Weight 108.86 kg lg3 (R); Height 5 ft. 10 in. (R); Pain 8/10; 12/08 01:12 BP 133 / 75; Pulse 87; Resp 16 S; Pulse Ox 96% on R/A; Pain 6/10; lg3 03:35 BP 127 / 63; Pulse 103; Resp 16 S; Pulse Ox 94% on R/A; lg3 06:26 BP 125 / 71; Pulse 94; Resp 16 S; Pulse Ox 96% on R/A; lg3 12/07 23:19 Body Mass Index 34.44 (108.86 kg, 177.8 cm) 3 12/07 23:19 Pain Scale: Adult lg3 12/08 01:12 Pain Scale: Adult lg3 [place] Coma Score: 12/09 04:04 Eye Response: spontaneous(4). Motor Response: obeys commands(6). Verbal Response: sp4 oriented(5). Total: 15. MDM: 12/07 23:42 Medical Screening Exam initiated sp4 12/08 04:13 ED course: COMPARISON: No relevant prior studies available. FINDINGS: Lung bases: sp4 Unremarkable. No mass. No consolidation. ABDOMEN: Liver: Unremarkable. Gallbladder and bile ducts: Gallbladder is surgically absent. No ductal dilation. Pancreas: Unremarkable. No ductal dilation. Spleen: Unremarkable. No splenomegaly. Adrenals: Unremarkable. No mass. Kidneys and ureters: Nonobstructing calcification in the left kidney. Stomach and bowel: Rectum is mildly distended with stool. Stool throughout the colon. No mucosal thickening. PELVIS: Appendix: The appendix is normal. Bladder: Unremarkable. Reproductive: Unremarkable as visualized. ABDOMEN and PELVIS: Intraperitoneal space: Unremarkable. No free air. No significant fluid collection. Bones/joints: Posterior andrew and screw fixation from L5 to S1. No acute fracture. No dislocation. Soft tissues: Unremarkable. Vasculature: Unremarkable. No abdominal aortic aneurysm. Lymph nodes: Unremarkable. No enlarged lymph nodes. IMPRESSION: No acute finding in the abdomen/pelvis. Electronically signed by: Kalpesh Sánchez MD 12/08/2024 04:07 AM. 12/09 04:04 Differential diagnosis: Acute Hemolysis arthritis, Cholelithiasis chronic back pain, sp4 Fatigue Fracture Joint Injury Neoplasm Osteomyelitis. Data reviewed: vital signs, nurses notes, old medical records, lab test result(s), radiologic studies, CT scan, ultrasound. Consideration of Admission/Observation Escalation of care including admission/observation considered. ED course: Patient was transferred for consultation with gastroenterology secondary to highly elevated liver enzymes.. 12/08 00:03 Order name: CBC with Diff; Complete Time: 00:54 vc1 12/08 00:03 Order name: CMP; Complete Time: 00:54 vc1 12/08 00:03 Order name: Lipase; Complete Time: 00:54 vc1 12/08 00:03 Order name: Urinalysis w/ reflexes; Complete Time: 00:54 vc1 12/08 00:21 Order name: C-Reactive Protein; Complete Time: 00:54 EDMS 12/08 00:55 Order name: Hepatitis Panel; Complete Time: 04:13 sp4 12/08 00:55 Order name: Bilirubin, Direct; Complete Time: 02:22 sp4 12/08 04:24 Order name: PT-INR sp4 12/08 04:24 Order name: Ptt, Activated sp4 12/08 00:14 Order name: US Scrotum Testicles sp4 12/08 02:23 Order name: CT Abd/Pelvis - Without Contrast sp4 12/08 00:03 Order name: IV Saline Lock; Complete Time: 00:16 vc1 12/08 00:03 Order name: Labs collected and sent; Complete Time: 00:16 vc1 12/08 03:16 Order name: NPO; Complete Time: 03:30 sp4 Administered Medications: 12/08 00:19 Drug: Ondansetron IVP 4 mg IVP once; over 2 minutes Route: IVP; Site: right antecubital;lg3 02:44 Follow up: Response: No adverse reaction; Marked relief of symptoms lg3 00:19 Drug: morphine IVP or IV 2 mg IVP once over 4 mins Route: IVP; Infused Over: 4 mins; lg3 Site: right antecubital; 02:44 Follow up: Response: No adverse reaction; Marked relief of symptoms lg3 00:19 Drug: Ketorolac IVP 30 mg IVP once Route: IVP; Site: right antecubital; lg3 02:44 Follow up: Response: No adverse reaction; Marked relief of symptoms lg3 00:20 Drug: Ondansetron IVP 4 mg IVP once; over 2 minutes Route: IVP; Site: right antecubital;lg3 02:44 Follow up: Response: No adverse reaction; Marked relief of symptoms lg3 00:20 Drug: morphine IVP or IV 4 mg IVP once over 4 mins Route: IVP; Infused Over: 4 mins; lg3 Site: right antecubital; 02:45 Follow up: Response: No adverse reaction; Marked relief of symptoms lg3 01:11 Drug: NS 0.9% IV 1000 ml IV at 1 bolus Per protocol; to be given as a bolus over 60 lg3 minutes Route: IV; Rate: 1 bolus; Site: right antecubital; 02:44 Follow up: Response: No adverse reaction; IV Status: Completed infusion; IV Intake: lg3 1000ml 01:11 Drug: NS 0.9% IV 1000 ml IV at 1 bolus Per protocol; to be given as a bolus over 60 lg3 minutes Route: IV; Rate: 1 bolus; Site: right antecubital; 02:44 Follow up: Response: No adverse reaction; IV Status: Completed infusion; IV Intake: lg3 1000ml 02:27 Drug: Insulin Regular Human IVP 10 units IVP once {Co-Signature: pema (Rolanda Galenchrist lg3 RN).} Route: IVP; Site: right antecubital; 06:25 Follow up: Response: No adverse reaction lg3 03:22 Drug: Ativan IVP 1 mg IVP once Route: IVP; Site: right antecubital; lg3 06:25 Follow up: Response: No adverse reaction lg3 03:23 Drug: morphine IVP or IV 4 mg IVP once over 4 mins Route: IVP; Infused Over: 4 mins; lg3 Site: right antecubital; 06:25 Follow up: Response: No adverse reaction; Marked relief of symptoms lg3 03:23 Drug: metoCLOPramide IVP 10 mg IVP once; over 1 to 2 minutes Route: IVP; Site: right lg3 antecubital; 06:25 Follow up: Response: No adverse reaction lg3 05:31 Drug: NS 0.9% IV 1000 ml IV at 125 ml/hr once; to be given as a bolus over 60 minutes lg3 Route: IV; Rate: 125 ml/hr; Site: right antecubital; 06:24 Follow up: IV Status: Infusion continued upon transfer; IV Intake: 125ml lg3 06:24 Drug: fentaNYL (PF) IVP 100 mcg IVP once Route: IVP; Site: right antecubital; lg3 06:24 Follow up: Response: No adverse reaction; Medication Administered at Departure lg3 Disposition Summary: 12/08/24 03:18 Transfer Ordered Notes: Transfer Location: [facility] sp4 Reason: Higher level of care sp4 Condition: Stable sp4 Problem: new sp4 Symptoms: have improved sp4 Accepting Physician: [facility] attending MD(12/08/24 06:27) lg3 Diagnosis - Nonspecific reactive hepatitis sp4 - Acute hepatitis, acute pancreatitis, diabetes type II uncontrolled with sp4 hyperglycemia Forms: - Medication Reconciliation Form sp4 - SBAR form sp4 Critical care time excluding procedures: 03:19 Critical care time: Bedside Care: 36 minutes, Consultation: 12 minutes, Family sp4 Intervention: 12 minutes. Total time: 60 minutes Signatures: Dispatcher [employer] EDMS Evita Fisher, RN RN lg3 Livia Yanez RN RN vc1 Milan Duckworth MD MD sp4 Isidro Orantes RN kd4 Corrections: (The following items were deleted from the chart) 00:48 00:14 C-REACTIVE PROTEIN+C.LAB.BRZ ordered. EDMS EDMS 02:23 02:23 Abdomen Pelvis Wo Con+CT.RAD.BRZ ordered. EDMS EDMS 04:24 04:24 PROTIME (+INR)+COAG.LAB.BRZ ordered. EDMS EDMS 04:25 04:25 PTT, ACTIVATED+COAG.LAB.BRZ ordered. EDMS EDMS 06:27 03:18 [facility]'s attending sp4 lg3
[2024-12-08 03:56] LABS: Hepatitis B Core IgM Nonreactive (Nonreactive); Hepatitis B surface AG Interp. Nonreactive (Nonreactive); Hepatitis C Virus Ab Nonreactive (Nonreactive)
[2024-12-08 03:57] LABS: HBsAG Nonreactive Report Report
[2024-12-08 06:13] LABS: PT Prothrombin Time 12.2 SECONDS (10-13.0); PTT, Activated Partial Thromb 27.8 SECONDS (27.2-37.4); Protime INR 1.07
[2024-12-08] MEDS ORDERED: FENTANYL CITR 100 MCG/2 ML ONE (06:16)
--- NOTE | 2024-12-08 06:24 | RAD REPORT ---
EXAM: CT Abdomen and Pelvis Without Intravenous Contrast CLINICAL HISTORY: The patient is 44 years old and is Male; ABD PAIN TECHNIQUE: Axial computed tomography images of the abdomen and pelvis without intravenous contrast. Sagittal and coronal reformatted images were created and reviewed. This CT exam was performed using one or more of the following dose reduction techniques: automated exposure control, adjustmen t of the mA and/or kV according to patient size, and/or use of iterative reconstruction technique. COMPARISON: No relevant prior studies available. FINDINGS: Lung bases: Unremarkable. No mass. No consolidation. ABDOMEN: Liver: Unremarkable. Gallbladder and bile ducts: Gallbladder is surgically absent. No ductal dilation. Pancreas: Unremarkable. No ductal dilation. Spleen: Unremarkable. No splenomegaly. Adrenals: Unremarkable. No mass. Kidneys and ureters: Nonobstructing calcification in the left kidney. Stomach and bowel: Rectum is mildly distended with stool. Stool throughout the colon. No mucosal thickening. PELVIS: Appendix: The appendix is normal. Bladder: Unremarkable. Reproductive: Unremarkable as visualized. ABDOMEN and PELVIS: Intraperitoneal space: Unremarkable. No free air. No significant fluid collection. Bones/joints: Posterior andrew and screw fixation from L5 to S1. No acute fracture. No dislocation. Soft tissues: Unremarkable. Vasculature: Unremarkable. No abdominal aortic aneurysm. Lymph nodes: Unremarkable. No enlarged lymph nodes. IMPRESSION: No acute finding in the abdomen/pelvis. Electronically signed by: Kalpesh Sánchez MD 12/08/2024 04:07 AM CDT 8 Due to temporary technical issues with the PACS/[employer] reporting system, reports are being slava d by the in-house radiologist without review as a courtesy to ensure prompt reporting the interpreting radiologist is fully responsible for the content of the report. Transcribed Date/Time: 12/08/2024 6:24 AM
[2024-12-08 06:37] VITALS: TEMP 98.2
[2024-12-08 06:54] VITALS: BP 125/71; O2SAT 96
== END 2024-12-08 06:27 | disposition short-term general hospital (02) ==
LOC: ER 22:56
DX: B17.9 Acute viral hepatitis, unspecified (principal); K85.90 Acute pancreatitis without necrosis or infection, unspecified; E11.65 Type 2 diabetes mellitus with hyperglycemia; R33.9 Retention of urine, unspecified
CPT/HCPCS: 96361; 85025; 36415; 85610; 85730; 81003; 82248; 83690; 80053; 86140; 80074; 74176; 76870; 96375; 96374; 99285; J2765; J3010; J2270; J2405; J1815; J7030 ×3